=== PATIENT | female | born 1970 | race Caucasian/White ===

== ENCOUNTER → 2016-07-24 | Outpatient (CLI) | payer OTHER ==
[2015-06-08 20:22] VITALS: BP 119/79
[~2016-07-24] MED LIST: ALBU8.5H6 IH; ALPR1TAB6 PO; CHLORZOXAZONE; CHOL400C2 PO; DULO30CA2 PO; FLUT1DIS3 IH; HYDR-2762 PO; LURA20TA PO; MAG355OR14 PO; MELO-156 PO; METH-37 PO; MILN50TA PO; OMEP20CA9 PO; PREG100C PO; PREN1TAB PO; SUMA50TA4 PO; TRAZ50TA15 PO; VARE1TAB5 PO; [UNRECOGNIZED DRUG - CODE] MC
[2016-07-24 12:36] LABS: CREATININE 0.8 mg/dL (0.6-1.0); GFR 77.2
== END | disposition home or self-care (01) ==
LOC: LAB 12:01
PROVIDERS: ATTEND Psychiatry & Neurology Neurology
DX: G62.9 Polyneuropathy, unspecified (principal)
CPT/HCPCS: 36415; 82565; 84520

== ENCOUNTER → 2016-09-23 | Outpatient (CLI) | payer OTHER ==
[2015-06-08 20:22] VITALS: BP 119/79
[~2016-09-23] MED LIST changes: +GADOBUTROL 7.5 MMOL/7.5 ML VIAL IV ONE
[2016-09-23 12:54] LABS: CREATININE 0.8 mg/dL (0.6-1.0); GFR 77.2
--- NOTE | 2016-09-23 17:27 | RAD ---
PROCEDURE MRI of the lumbar spine without and with contrast 09/23/2016 HISTORY Low back pain which radiates down the right leg. TECHNIQUE Unenhanced T1 weighted, T2 weighted and inversion recovery sagittal and T2 weighted axial images of the lumbar spine were obtained. After the intravenous administration of 7 cc of Gadavist, enhanced T1 weighted sagittal and axial images of the lumbar spine were obtained. FINDINGS Comparison is made to a CT scan lumbar spine dated 09/09/2013. Minimal S-shaped curvature of the thoracolumbar spine is seen. Degenerative signal changes are seen involving the L5-S1 discs. Loss of height of this disc is noted. Degenerative signal changes are seen within the marrow surrounding this disc. The conus medullaris is normal in morphology, position, and signal characteristics. The L1-2, L2-3, and L3-4 disc spaces are within normal limits. At the L4-5 disc space there is mild generalized disc bulge which is eccentric to the right. Degenerative changes are seen involving the facet joints bilaterally. These findings do not result in significant central spinal canal or neural foraminal stenosis. At the L5-S1 disc space there is a mild generalized disc bulge. Superimposed on this disc bulge is a right paracentral focal disc herniation. This measures 4 millimeters in AP diameter. This enhances with contrast to some degree. It abuts the right S1 nerve root within the right lateral aspect of the central spinal canal. Degenerative changes are seen involving the facet joints bilaterally. These findings when combined result in mild right-sided central spinal canal stenosis. No neural foraminal stenosis is seen. IMPRESSION The changes of degenerative disc disease are seen involving the lower lumbar spine. At the L5-S1 disc space a right paracentral focal disc herniation is seen. This results in mild right-sided central spinal canal stenosis and abuts the right S1 nerve root within the right lateral aspect of the central spinal canal as outlined above. Electronically signed by: Eloy Martins MD (Sep 23, 2016 17:25:30)
== END | disposition home or self-care (01) ==
LOC: MRI 12:14
PROVIDERS: ATTEND Psychiatry & Neurology Neurology
DX: M54.16 Radiculopathy, lumbar region (principal)
CPT/HCPCS: 36415; 72158; 82565; 84520

== ENCOUNTER → 2016-10-30 | Outpatient (CLI) | payer OTHER ==
[2015-06-08 20:22] VITALS: BP 119/79
[~2016-10-30] MED LIST changes: -GADOBUTROL 7.5 MMOL/7.5 ML VIAL IV ONE
--- NOTE | 2016-10-31 01:51 | PAIN ---
DATE OF SERVICE: 10/30/2016 DIAGNOSES: Lumbar radiculopathy with lumbar degenerative disk disease and lumbar herniated disk. HISTORY OF PRESENT ILLNESS: The patient is a 46-year-old female who returns for followup, last seen on 07/26/2015. The patient did well after some epidural steroid injections with about 80-90% improvement in pain. The patient reports the pain is returning now over the past 4 months or so, increased in the low back, radiating to the right posterior lateral gluteus, posterior thighs, lateral thigh, posterior lower leg, lateral lower leg into the ankle and foot and all of the lateral toes on the right side. The patient reports a burning, radiating, constant pain, severe tingling with cramping and stabbing type, shooting and aching qualities, worse with walking and standing, better with sitting, but has been waking her up from sleep several times at night about 3 times each night to reposition. She is taking about 800 mg of ibuprofen 3 times a day, which is not helping more than about 10%. The patient reports she has been doing some stretching and strengthening exercises as well. She has had physical therapy in the past and has been doing the exercises that she had from that, these are not helping. She is still trying to walk each day, although it is becoming more and more difficult because of the pain. The patient did see her neurosurgeon who is considering diskectomy; however, would like to try conservative measures as she has done well with these in the past. The patient did have a new MRI dated ____, showing mild degenerative changes with disk protrusion in right lateral recess at L5-S1 with mild mass effect on the adjacent neural elements. PHYSICAL EXAMINATION: VITAL SIGNS: Today, the patient's blood pressure is 138/100, pulse is 80, respirations are 18, temperature is 98.1 degrees Fahrenheit. Height is 5 feet 10 inches, weight is 176 pounds. GENERAL: The patient is awake, alert, oriented, appropriate, very pleasant demeanor. HEENT: Shows normocephalic and atraumatic. Extraocular movements are intact and symmetrical. Oral cavity: Mucous membranes are moist and pink. Dentition is intact. NECK: Shows anterior throat supple without palpable lymphadenopathy noted. Swallow reflex is symmetrical. CHEST: Shows normal on inspection. Breath sounds are clear to auscultation bilaterally. HEART: Shows S1 and S2 clear. No murmurs auscultated. ABDOMEN: Soft, nontender, nondistended. No palpable organomegaly. No new rebound or guarding demonstrated. BACK: Shows spine grossly in the midline. Lumbar paraspinous musculature is symmetrical with inspection; on palpation, it shows some mild tenderness with palpation in the lower lumbar distribution bilaterally, but only diffusely in the paraspinous muscles without radiation. EXTREMITIES: The patient's lower extremities showed deep tendon reflexes at 1+ in the patellar and tendo calcaneus tendons and are symmetrical. Motor exam is approximately 4 on a scale of 5 with right-sided dorsiflexion and extension but 5/5 on the left. Straight leg raise noted to be mildly positive on the right side with about 45-degree leg raise, decreased with knee flexion, but not completely relieved. Left side is negative. Gaenslen's and Ortiz's maneuvers are negative bilaterally as well. PLAN: Options were discussed with the patient. The patient's old chart was reviewed as her current medication regimen and updated. Current review of systems updated today as well, and we will preauthorize the patient for lumbar epidural steroid injection. She has done very well with this in the past, especially in light of her significant increasing radicular pain and failure of physical therapies and stretching and exercise on her own and with history of doing very well with this, she would like to proceed. We will try Medrol Dosepak in the meantime. The patient was given instruction as well as side effects to be aware of with the medication. Also discussed her blood pressure, it is relatively high, she will follow up with her primary care physician regarding this soon as well. AB KARIMI MD DR: PALMIRA/andres JOB#: [id number] / [id number]
== END | disposition home or self-care (01) ==
LOC: PNCL 07:43
PROVIDERS: ATTEND Anesthesiology
DX: M51.16 Intervertebral disc disorders with radiculopathy, lumbar region (principal); M51.26 Other intervertebral disc displacement, lumbar region
CPT/HCPCS: 99212

== ENCOUNTER → 2016-11-13 | Outpatient (CLI) | payer OTHER ==
[2015-06-08 20:22] VITALS: BP 119/79
[~2016-11-13] MED LIST changes: +IOHEXOL 180 MG/ML 10 ML VIAL. ONE; +methylPREDNISolone ACETATE 40 MG/ML VIAL. ONE; +methylPREDNISolone ACETATE 80 MG/ML VIAL. ONE
--- NOTE | 2016-11-14 09:41 | PAIN ---
DATE OF SERVICE: 11/13/2016 PROGRESS NOTE PAIN CLINIC DIAGNOSES: Lumbar radiculopathy with lumbar degenerative disk disease and lumbar herniated disk. HISTORY OF PRESENT ILLNESS: The patient is a 46-year-old female who returns for followup status post initial evaluation and preauthorization for lumbar epidural steroid injection. The patient has obtained that now and returns today wishing to proceed with significant pain reported in the low back and right lower extremity, mostly in the posterior gluteus, posterior thigh, posterior calf, tingling, burning, aching, tight, cramping sensation and radiating pain anywhere from 0-5 on a scale of 10, worse with walking and standing for more than 10-15 minutes, better with sitting or lying down. The patient reports it is waking her from sleep about 4-5 times. Again if she lays on her right side or sits with leaning on her right hip, the pain is much worse. The patient reports no new motor or sensory deficits, no new bowel or bladder incontinence or other complaints. PHYSICAL EXAMINATION: VITAL SIGNS: The patient's blood pressure is 125/85, pulse 111, respirations are 18, temperature 98.1 degrees Fahrenheit. Height is 5 feet 10 inches, weighs 172 pounds. GENERAL: The patient is awake, alert, oriented, appropriate, very pleasant demeanor. HEENT: Head shows normocephalic, atraumatic. Extraocular movements are intact and symmetrical. Oral cavity shows mucous membranes moist and pink. Dentition is intact. NECK: Shows anterior throat supple without palpable lymphadenopathy noted. Swallow reflex is symmetrical. CHEST: Shows normal on inspection. Breath sounds clear to auscultation bilaterally. HEART: Shows S1 and S2 clear. ABDOMEN: Obese, soft, nontender, nondistended. No palpable organomegaly is noted. No rebound or guarding demonstrated. BACK: Shows spine grossly in the midline. Lumbar paraspinous muscle shows some moderate tenderness to palpation, but only diffusely in the lower lumbar distribution, slightly more on the right than the left. The patient has good rotational motion; however, the lumbar spine, both laterally as well as extension and flexion without exacerbation of pain, no tenderness over the sacrum or sacroiliac regions. EXTREMITIES: Lower extremities show deep tendon reflexes at 1+ in the patellar and tendo calcaneus tendons. Motor exam is 5/5 on the left and 4/5 with right dorsiflexion and extension. Options were discussed with the patient and the patient's old chart was reviewed as her current medication regimen updated. Current review of systems updated to date as well and we will proceed with a lumbar epidural steroid injection with fluoroscopic guidance. Risks were again discussed including, but not limited to bleeding, infection, possibility of epidural hematoma, subsequent neurologic compromise, dural puncture, headaches, spinal cord and/or nerve damage, side effects of steroid medication and poor results regarding pain control. The patient understands and wishes to proceed. The patient will return to clinic in approximately 2 weeks for followup, was counseled on return appointment, activity levels and side effects to be aware of. DIAGNOSES: Lumbar radiculopathy with lumbar degenerative disk disease and lumbar herniated disk. PROCEDURE: Lumbar epidural steroid injection in translaminar approach at the L5-S1 level using C-arm fluoroscopic guidance under sterile prep and drape using local anesthetic. MEDICATION INJECTED: 120 mg Depo-Medrol plus 10 mL of preservative-free normal saline and 2 mL of Isovue for contrast. CONDITION AT DISCHARGE: Stable. The patient tolerated procedure well, had no complications. AB KARIMI MD DR: PALMIRA/andres JOB#: [id number] / [id number]
== END | disposition home or self-care (01) ==
LOC: PNCL 08:06
PROVIDERS: ATTEND Anesthesiology
DX: M51.16 Intervertebral disc disorders with radiculopathy, lumbar region (principal)
CPT/HCPCS: 62323; J1030; J1040

== ENCOUNTER → 2016-11-20 | Outpatient (CLI) | payer OTHER ==
[2015-06-08 20:22] VITALS: BP 119/79
[~2016-11-20] MED LIST changes: -IOHEXOL 180 MG/ML 10 ML VIAL. ONE; -methylPREDNISolone ACETATE 40 MG/ML VIAL. ONE; -methylPREDNISolone ACETATE 80 MG/ML VIAL. ONE
--- NOTE | 2016-11-20 10:11 | KCIC ---
Bilateral digital screening mammograms with CAD: HISTORY Routine screening COMPARISON Comparison is made to previous examinations dated back to 10/04/2013. FINDINGS Breast density category C. The skin and nipples show no abnormalities. No abnormal lymph nodes are seen in the axilla. The breast parenchyma shows heterogeneous density. There appears to be a 12 millimeter nodular density laterally in the right breast on the exaggerated CC view. Recommend further evaluation with additional cone compression views and ultrasound. There are no other dominant masses, suspicious calcifications or architectural distortions. IMPRESSION There appears to be a small nodular density laterally in the right breast seen best on the exaggerated CC measuring approximately 1.2 centimeters size. Further evaluation with coned compression views in exaggerated CC and lateral projections and ultrasound is recommended. This study was interpreted with the benefit of Computerized Aided Detection (CAD). Mammography is not 100% sensitive in detecting breast cancer. Therefore, a self breast exam and a clinical breast exam are very important. A negative mammogram does not negate a clinically suspicious finding and should not result in a delay in biopsying a clinically suspicious abnormality. BI-RADS category 0: Incomplete. Additional imaging is recommended. This patient's information has been entered into a reminder system for the patient to be notified with the results of this examination and a target date for her next mammograms. Electronically signed by: Nadia Seals MD (November 20, 2016 10:10:05)
== END | disposition home or self-care (01) ==
LOC: KCIC MAMMO 08:05
PROVIDERS: ATTEND Family Medicine
DX: Z12.31 Encounter for screening mammogram for malignant neoplasm of breast (principal)
CPT/HCPCS: G0202; 77067

== ENCOUNTER → 2016-12-27 | Outpatient (CLI) | payer OTHER ==
[2015-06-08 20:22] VITALS: BP 119/79
[~2016-12-27] MED LIST changes: -MELO-156 PO; +MELO7.5T29 PO
--- NOTE | 2016-12-27 14:14 | KCIC ---
Diagnostic digital mammograms right breast: Reason for examination: Nodularity in the right breast on screening mammogram. Comparison is made to examination dated 11/20/2016. Coned compression views were obtained in CC and lateral projections. On these additional views, there is some patchy fibroglandular tissue but no definite nodule in the lateral right breast. Further evaluation with ultrasound will follow. IMPRESSION: Patchy fibroglandular tissue in the lateral right breast but no definite nodule. Ultrasound to follow. BI-RADS Category 0: Incomplete. Ultrasound to follow. Right breast ultrasound: Ultrasound examination was performed in the area of concern in the lateral right breast and in the axillary regions of the right breast. There is dense glandular tissue. No discrete cystic or solid nodules are seen. No abnormal lymph nodes are seen in the right axilla. IMPRESSION: No suspicious abnormalities evident with ultrasound. Recommend routine mammographic follow-up. BI-RADS Category 2: Benign. "Our facility is accredited by the [employer] Mammography Program." This patient's information has been entered into a reminder system for the patient to be notified with the results of her examination and a target date for the next mammogram. Electronically signed by: Sirena Seals MD (12/27/2016 2:11 PM)
== END | disposition home or self-care (01) ==
LOC: KCIC MAMMO 09:40
PROVIDERS: ATTEND Family Medicine
DX: R92.8 Other abnormal and inconclusive findings on diagnostic imaging of breast (principal)
CPT/HCPCS: 76641; G0206; 77065

== ENCOUNTER → 2017-02-25 | Outpatient (CLI) | payer OTHER ==
[2015-06-08 20:22] VITALS: BP 119/79
--- NOTE | 2017-02-25 16:00 | PAIN ---
DATE OF SERVICE: 02/25/2017 DIAGNOSES: Lumbar radiculopathy with low back pain, degenerative disk disease and lumbar herniated disk. HISTORY OF PRESENT ILLNESS: This is a 47-year-old female who returns for followup status post lumbar epidural steroid injection x 1, 11/13/2016. The patient reports she did very well with this, about a 75% improvement initially, but still about 50% improvement today. The patient reports still pain in the low back, right lower extremity as it was previously, but much still improved. The patient reports the pain is beginning to return, however, becoming more noticeable on a day to day basis, becoming more deep in the back and leg itself and sometimes in bilateral posterior gluteus mostly on the right side with radiation into the right leg, into the lateral posterior thigh and posterior calf; radiating constant, burning, cramping, and aching sensation, rates as an 8 on a scale of 10 at its worst and a 2 at its least, is average about a 5 to a 6 on a scale of 10 lately. The patient reports no new motor or sensory deficits, no new bowel or bladder incontinence or other complaints. The patient reports she does not awaken up from sleep at night. She has been doing well with this, reports no new motor or sensory deficits or other complaints. PHYSICAL EXAMINATION: VITAL SIGNS: Today, blood pressure is 137/81, pulse is 82, respirations 16, temperature is 98.2 degrees Fahrenheit, height is 5 feet 10 inches, weighs 124 pounds. GENERAL: The patient is awake, alert, oriented, appropriate, very pleasant demeanor. HEENT: Normocephalic, atraumatic. Extraocular movements are intact and symmetrical. Oral cavity, mucous membranes are moist and pink. Dentition is intact. NECK: Shows anterior throat supple without palpable lymphadenopathy noted. CHEST: Shows normal on inspection. Breath sounds clear to auscultation bilaterally. HEART: Shows S1 and S2 clear. No murmurs are auscultated. ABDOMEN: Soft, nontender, nondistended. No palpable organomegaly, no rebound or guarding demonstrated. BACK: The patient's back shows spine grossly in midline. Lumbar paraspinous musculature shows some mild to moderate tenderness in the lower lumbar distribution, but is symmetrical without evidence of atrophy or hypertrophy. No tenderness over the sacrum or sacroiliac regions. The patient shows good rotation and motion of the lumbar spine both laterally as well as in extension and flexion. EXTREMITIES: Lower extremities show deep tendon reflexes 1+ in the patellar and tendo calcaneus tendons are equal. Motor exam is approximately 4 on a scale of 5 with right dorsiflexion and extension and 5/5 on the left. Options were discussed with the patient and the patient's old chart was reviewed as her current medication regimen and updated. Current review of systems updated today as well. We will hold on any further injections and we will try Medrol Dosepak. The patient was given instructions as well as side effects to be aware of with the medication. The patient will return to the clinic after the Dosepak is finished by about 1 week further and if not significantly improved we did discuss potential of second lumbar epidural steroid injection, although she is doing quite well at this time, we will try the Medrol Dosepak first and see results after this. The patient understands and agrees and will follow up as scheduled. AB KARIMI MD DR: PALMIRA/andres JOB#: [id number] / [id number]
== END | disposition home or self-care (01) ==
LOC: PNCL 09:43
PROVIDERS: ATTEND Anesthesiology
DX: M54.16 Radiculopathy, lumbar region (principal); M51.36 Other intervertebral disc degeneration, lumbar region; M51.26 Other intervertebral disc displacement, lumbar region
CPT/HCPCS: 99212

== ENCOUNTER → 2017-03-17 | Outpatient (CLI) | payer OTHER ==
[2015-06-08 20:22] VITALS: BP 119/79
--- NOTE | 2017-03-18 02:01 | PAIN ---
DATE OF SERVICE: 03/17/2017 PROGRESS NOTE FOR PAIN CLINIC DIAGNOSES: Lumbar radiculopathy with lumbar degenerative disk disease and lumbar herniated disk. HISTORY OF PRESENT ILLNESS: The patient is a 47-year-old female who returns for followup status post lumbar epidural steroid injection x 1 on 11/13/2016 and did very well with 75%-80% improvement in her low back and right lower extremity pain. The patient reports her pain is returning now in the low back and right leg, gradually increasing to about 8 on a scale of 10, at its worst at 5 and on average is about 3 on a scale of 10 at its least. The patient reports worse with standing, walking and changing positions. It is aching, shooting, tingling, burning and radiating pain to the right hip, posterior gluteus, posterior thigh, posterior calf into the foot and into the lateral foot and toes as well following an L5-S1 dermatomal distribution, some in the lateral thigh also and into the calf. The patient reports no motor or sensory deficits, but it is becoming more difficult with walking and standing, fatigues much more easily on the right leg than the left. The patient reports otherwise doing fairly well. No new motor or sensory deficits. No new bowel or bladder incontinence. The patient reports it wakes her from sleep but only after about 4-5 hours as she lays on her right side. PHYSICAL EXAMINATION: VITAL SIGNS: The patient's blood pressure 129/90, pulse 99, respirations 18, temperature 98.2 degrees Fahrenheit, height is 5 feet 10 inches, weighs 173 pounds. GENERAL: The patient is awake, alert, oriented, appropriate, very pleasant demeanor. HEENT: Head shows normocephalic and atraumatic. Extraocular movements are intact and symmetrical. Oral cavity shows mucous membranes moist and pink. Dentition is intact. NECK: Shows anterior throat supple without palpable lymphadenopathy noted. Swallow reflex is symmetrical. CHEST: Shows normal with inspection. Breath sounds clear to auscultation bilaterally. HEART: Shows S1 and S2 clear. ABDOMEN: Soft, nontender and nondistended. No palpable organomegaly is noted. No rebound or guarding demonstrated. BACK: Shows spine grossly in the midline with normal-appearing thoracic kyphosis and lumbar lordotic curvature. Lumbar paraspinous muscle shows symmetrical on inspection and with palpation shows some moderate tenderness diffusely in the lower lumbar distribution but only diffusely, more on the right than the left. The patient shows good rotation and motion of the lumbar spine, both laterally as well as extension and flexion. No tenderness over the sacrum or sacroiliac regions. EXTREMITIES: Lower extremities show deep tendon reflexes 1+ in the patellar and tendo calcaneus tendons, equal. Motor exam is strong with 5/5 on the left and 4/5 on the right with dorsiflexion and extension. Peripheral pulses are 1+ in posterior tibial bilaterally. No peripheral edema is noted. ASSESSMENT AND PLAN: Options were discussed with the patient. The patient's old chart was reviewed, and her current medication regimen is updated. Current review of systems is updated today as well. We will preauthorize the patient for a lumbar epidural steroid injection. This is second in a series, and she did very well with the first injection with near 80% improvement, now returning over the past week or two in a radicular pattern on the right leg in L5-S1 dermatome. Once preauthorization is obtained, the patient will returns, and we will plan on lumbar epidural steroid injection at that time. AB KARIMI MD DR: PALMIRA/andres JOB#: [id number] / [id number]
== END | disposition home or self-care (01) ==
LOC: PNCL 08:10
PROVIDERS: ATTEND Anesthesiology
DX: M51.16 Intervertebral disc disorders with radiculopathy, lumbar region (principal); M79.604 Pain in right leg
CPT/HCPCS: 99212

== ENCOUNTER → 2017-04-01 | Outpatient (CLI) | payer OTHER ==
[2015-06-08 20:22] VITALS: BP 119/79
[~2017-04-01] MED LIST changes: +IOHEXOL 180 MG/ML 10 ML VIAL. ONE; +methylPREDNISolone ACETATE 40 MG/ML VIAL. ONE; +methylPREDNISolone ACETATE 80 MG/ML VIAL. ONE
--- NOTE | 2017-04-01 18:48 | PAIN ---
DATE OF SERVICE: 04/01/2017 DIAGNOSES: Lumbar radiculopathy with lumbar degenerative disk disease, low back pain and lumbar herniated disk. HISTORY OF PRESENT ILLNESS: The patient is a 47-year-old female who returns for followup status post lumbar epidural steroid injection in November of this year with good results about 75% improvement to 80% improvement. The pain has been returning and is down the low back and right lower extremity as it was previously. The patient reports it is increasing with walking, standing, change in positions of 10 on a scale of 10 at its worst, at 8 on average and a 5 on a scale of 10 at its least, is a 5 today. The patient reports an aching tight cramping, burning, radiating, constant, no new motor or sensory deficits. The patient reports no new bowel or bladder incontinence or other complaints. PHYSICAL EXAMINATION: VITAL SIGNS: The patient's blood pressure 144/94, pulse 90, respirations 18, temperature is 98.1 degrees Fahrenheit, height is 5 feet 10 inches, weight is 173 pounds. GENERAL: The patient is awake, alert, oriented, appropriate, very pleasant demeanor. HEENT: Head shows normocephalic, atraumatic. Extraocular movements are intact and symmetrical. Oral cavity: Mucous membranes moist and pink. Dentition is intact. NECK: Shows anterior throat supple without palpable lymphadenopathy noted. Swallow reflex is symmetrical. CHEST: Shows normal on inspection. Breath sounds clear to auscultation bilaterally. HEART: Shows S1 and S2 clear. ABDOMEN: Soft, nontender, nondistended. No palpable organomegaly is noted. BACK: Shows spine grossly midline. Lumbar paraspinous musculature shows tattooing noted and also, lumbar paraspinous muscles are symmetrical when on inspection with palpation shows some mild tenderness bilaterally, but without significant radiation, more on the right than the left in the lower lumbar distribution to paraspinous muscles, again only diffusely. EXTREMITIES: Lower extremities show deep tendon reflexes 1+ in the patellar and tendo calcaneus tendons. Motor exam is strong with approximately 4 on a scale of 5 right dorsiflexion and extension and 5/5 on the left. Options were discussed with the patient. The patient's old chart was reviewed as her current medication regimen updated. Current review of systems updated today as well. We will proceed with a second in this series of lumbar epidural steroid injection with fluoroscopic guidance. Risks were again discussed including, but not limited to bleeding, infection, possibility of epidural hematoma, subsequent neurologic compromise, dural puncture, headaches, spinal cord and/or nerve damage, side effects of steroid medication and poor results regarding pain control. The patient understands and wishes to proceed. The patient will return to clinic in approximately 2 weeks for followup. She was counseled to return appointment, activity level and side effects to be aware of. DIAGNOSIS: Lumbar radiculopathy with lumbar degenerative disk disease and lumbar herniated disk. PROCEDURE: Lumbar epidural steroid injection, translaminar approach L5-S1 level using C-arm fluoroscopic guidance under sterile prep and drape using local anesthetic. MEDICATION INJECTED: A total of 120 mg Depo-Medrol plus 10 mL of preservative-free normal saline and 2 mL Isovue for contrast. CONDITION ON DISCHARGE: Stable. The patient tolerated procedure well, had no complications. AB KARIMI MD DR: PALMIRA/andres JOB#: [id number] / [id number]
== END | disposition home or self-care (01) ==
LOC: PNCL 09:01
PROVIDERS: ATTEND Anesthesiology
DX: M51.16 Intervertebral disc disorders with radiculopathy, lumbar region (principal)
CPT/HCPCS: 62323; J1030; J1040

== ENCOUNTER → 2017-06-19 | Day surgery (SDC) | payer OTHER ==
[~2017-06-19] MED LIST changes: -ALBU8.5H6 IH; -ALPR1TAB6 PO; -CHLORZOXAZONE; -CHOL400C2 PO; -DULO30CA2 PO; -FLUT1DIS3 IH; -HYDR-2762 PO; -IOHEXOL 180 MG/ML 10 ML VIAL. ONE; +LIDOCAINE 1% PF 2 ML VIAL. ID; +LIDOCAINE 2% PF Vial for OR 5 ML VIAL.; -LURA20TA PO; -MAG355OR14 PO; -MELO7.5T29 PO; -METH-37 PO; +MIDAZOLAM HCL/PF 2 MG/2 ML VIAL. IV; -MILN50TA PO; -OMEP20CA9 PO; -PREG100C PO; -PREN1TAB PO; +PROPOFOL 20 ML IV; -SUMA50TA4 PO; -TRAZ50TA15 PO; -VARE1TAB5 PO; -[UNRECOGNIZED DRUG - CODE] MC; +fentaNYL PF VIAL 100 MCG/2 ML VIAL IV; -methylPREDNISolone ACETATE 40 MG/ML VIAL. ONE; -methylPREDNISolone ACETATE 80 MG/ML VIAL. ONE
[2017-06-19] MEDS: IV RINGERS,LACTATED 1000ML 1,000 ML IV (12:43)
== END | disposition home or self-care (01) ==
LOC: SURG 11:58
DX: K21.0 Gastro-esophageal reflux disease with esophagitis (principal); K29.50 Unspecified chronic gastritis without bleeding; T18.2XXA Foreign body in stomach, initial encounter; J45.909 Unspecified asthma, uncomplicated; F41.9 Anxiety disorder, unspecified; F32.9 Major depressive disorder, single episode, unspecified; F17.200 Nicotine dependence, unspecified, uncomplicated; Z86.69 Personal history of other diseases of the nervous system and sense organs; X58.XXXA Exposure to other specified factors, initial encounter; Y93.89 Activity, other specified; Y92.89 Other specified places as the place of occurrence of the external cause; Y99.8 Other external cause status
CPT/HCPCS: 43239; 88305; J2704

== ENCOUNTER → 2017-09-16 | Outpatient (CLI) | payer OTHER | END | disposition home or self-care (01) | LOC: PNCL 10:34 | DX: M48.061 Spinal stenosis, lumbar region without neurogenic claudication (principal); M51.16 Intervertebral disc disorders with radiculopathy, lumbar region; G25.81 Restless legs syndrome | CPT/HCPCS: 99212 ==

== ENCOUNTER → 2017-09-23 | Outpatient (CLI) | payer OTHER | LOC: KCIC MRI 15:25 | DX: M51.16 Intervertebral disc disorders with radiculopathy, lumbar region (principal); G89.29 Other chronic pain | CPT/HCPCS: 72148 ==

== ENCOUNTER → 2017-09-30 | Outpatient (CLI) | payer OTHER | END | disposition home or self-care (01) | LOC: PNCL 09:50 | DX: M51.16 Intervertebral disc disorders with radiculopathy, lumbar region (principal) | CPT/HCPCS: 99212 ==

== ENCOUNTER → 2017-10-21 | Outpatient (CLI) | payer OTHER ==
[~2017-10-21] MED LIST changes: +IOHEXOL 180 MG/ML 10 ML VIAL.; -LIDOCAINE 1% PF 2 ML VIAL. ID; -LIDOCAINE 2% PF Vial for OR 5 ML VIAL.; -MIDAZOLAM HCL/PF 2 MG/2 ML VIAL. IV; -PROPOFOL 20 ML IV; -fentaNYL PF VIAL 100 MCG/2 ML VIAL IV; +methylPREDNISolone ACETATE 40 MG/ML VIAL.; +methylPREDNISolone ACETATE 80 MG/ML VIAL.
== END ==
LOC: PNCL 08:55
DX: M51.16 Intervertebral disc disorders with radiculopathy, lumbar region (principal)
CPT/HCPCS: 62323; J1030; J1040; Q9965

== ENCOUNTER → 2018-01-29 | Outpatient (CLI) | payer OTHER | END | disposition home or self-care (01) | LOC: PNCL 09:11 | DX: M51.16 Intervertebral disc disorders with radiculopathy, lumbar region (principal) | CPT/HCPCS: 99212 ==

== ENCOUNTER → 2018-02-09 | Outpatient (CLI) | payer OTHER | END | disposition home or self-care (01) | LOC: KCIC MRI 12:06 | DX: M50.123 Cervical disc disorder at C6-C7 level with radiculopathy (principal); M48.02 Spinal stenosis, cervical region | CPT/HCPCS: 72141 ==

== ENCOUNTER → 2018-02-19 | Outpatient (CLI) | payer OTHER ==
[2017-06-19 13:25] VITALS: BP 139/64
[~2018-02-19] MED LIST changes: +ALBU8.5H6 IH; +ALPR1TAB6 PO; +BREX0.25 PO; +CHLORZOXAZONE; +CHOL400C2 PO; +DULO30CA2 PO; +FLUT1DIS3 IH; +HYDR-2762 PO; -IOHEXOL 180 MG/ML 10 ML VIAL.; +IOHEXOL 180 MG/ML 10 ML VIAL. ONE; +LIDOCAINE 2% PF 2ML VIAL. ONE; +LURA20TA PO; +MAG355OR14 PO; +MELO7.5T29 PO; +METH-37 PO; +METO25TA4 PO; +MILN50TA PO; +OMEP20CA9 PO; +PREG100C PO; +PREN1TAB PO; +SUMA50TA4 PO; +TRAZ-85 PO; +VARE1TAB5 PO; +[UNRECOGNIZED DRUG - CODE] MC; -methylPREDNISolone ACETATE 40 MG/ML VIAL.; +methylPREDNISolone ACETATE 40 MG/ML VIAL. ONE; -methylPREDNISolone ACETATE 80 MG/ML VIAL.; +methylPREDNISolone ACETATE 80 MG/ML VIAL. ONE
--- NOTE | 2018-02-19 15:14 | PAIN ---
DATE OF SERVICE: 02/19/2018 DIAGNOSES: 1. Lumbar radiculopathy with lumbar degenerative disk disease, lumbar herniated disk and low back pain. 2. Cervical radiculopathy with cervical degenerative disk disease. HISTORY OF PRESENT ILLNESS: The patient is a 48-year-old female who returns for followup status post lumbar epidural steroid injection x 1 with good results about 90% improvement. The patient reports that the pain is returning with a significant radiation in the right lower extremity as previously, the patient was waiting for preauthorization with her insurance provider. She has obtained this and would like to proceed today. The patient reports still significant pain in the low back, bilateral and into the right lower extremity, mostly in the posterior gluteus, posterior thigh, posterior calf. Rates a 9 on a scale of 10 at its worst, 6 on average, 5 at its least and is a 6 today. The patient reports an aching, tight, shooting, sharp, cramping, stabbing, burning and becoming more constant, more severe with time, worse with walking, standing, better with sitting or lying down, but does awaken him from sleep about every 3-4 hours. The patient reports originally, she is increasing her distance walking, doing better with household activities and recreational activities, but now, the pain is returning. The patient reports no new motor or sensory deficits, no new bowel or bladder incontinence or other complaints. PHYSICAL EXAMINATION: VITAL SIGNS: The patient's blood pressure 141/93, pulse 103, respirations 16, temperature is 98.3 degrees Fahrenheit, weight is 171 pounds. GENERAL: The patient is awake, alert, oriented, appropriate, very pleasant demeanor. HEENT: Shows normocephalic, atraumatic. Extraocular movements are intact, symmetrical. Oral cavity: Mucous membranes moist and pink. Dentition is intact. NECK: Shows anterior throat supple without palpable lymphadenopathy noted. Swallow reflex is symmetrical. CHEST: Shows normal with inspection. Breath sounds are clear to auscultation bilaterally. HEART: Shows S1, S2 clear. No murmurs auscultated. ABDOMEN: Soft, nontender, nondistended. No palpable organomegaly is noted. No rebound or guarding demonstrated. BACK: Shows spine grossly in the midline, normal-appearing thoracic kyphosis and lumbar lordotic curvature. Lumbar paraspinous musculature shows symmetrical on inspection, on palpation shows some moderate tenderness but only diffusely with palpation, but without radiation or trigger points, no difficulty with rotational motion both laterally as well as extension and flexion without difficulty. EXTREMITIES: The patient's lower extremities show deep tendon reflexes at 1+ in the patellar and tendo calcaneus tendon. Motor exam is approximately 4 on a scale of 5 on the right and 5/5 on the left with dorsiflexion, extension, but intact. Peripheral pulses are 1+ posterior tibia. No peripheral edema is noted bilaterally. Options were discussed with the patient. The patient's old chart was reviewed as her current medication regimen and updated. Current review of systems is updated today as well. We will proceed with a second in the series of lumbar epidural steroid injection today with fluoroscopic guidance. Risks were again discussed including, but not limited to bleeding, infection, possibility of epidural hematoma and subsequent neurological compromise, dural puncture, headaches, spinal cord and/or nerve damage, side effects of steroid medication and poor results regarding pain control. The patient understands and wished to proceed. The patient to return to clinic in approximately 2 weeks for followup. She was counseled on return appointment, activity level and side effects to be aware of. DIAGNOSES: Lumbar radiculopathy with lumbar degenerative disk disease and lumbar herniated disk. PROCEDURE: Lumbar epidural steroid injection, translaminar approach L5-S1 level using C-arm fluoroscopic guidance under sterile prep and drape using local anesthetic. MEDICATION INJECTED: A total of 120 mg Depo-Medrol plus 10 mL of preservative-free normal saline and 2 mL of Isovue for contrast. CONDITION AT DISCHARGE: Stable. The patient tolerated procedure well, had no complications. AB KARIMI MD DR: PALMIRA/andres JOB#: [id number] / [id number]
== END | disposition home or self-care (01) ==
LOC: PNCL 08:59
PROVIDERS: ATTEND Anesthesiology
DX: M51.16 Intervertebral disc disorders with radiculopathy, lumbar region (principal); M48.02 Spinal stenosis, cervical region; K58.9 Irritable bowel syndrome, unspecified; K21.9 Gastro-esophageal reflux disease without esophagitis; F31.9 Bipolar disorder, unspecified; F41.9 Anxiety disorder, unspecified; Z72.0 Tobacco use; F20.9 Schizophrenia, unspecified; Z98.890 Other specified postprocedural states; Z79.899 Other long term (current) drug therapy
CPT/HCPCS: 62323; J1030; J1040; J2001; Q9965

== ENCOUNTER → 2018-02-23 | Outpatient (CLI) | payer OTHER ==
[2017-06-19 13:25] VITALS: BP 139/64
[~2018-02-23] MED LIST changes: -IOHEXOL 180 MG/ML 10 ML VIAL. ONE; -LIDOCAINE 2% PF 2ML VIAL. ONE; -methylPREDNISolone ACETATE 40 MG/ML VIAL. ONE; -methylPREDNISolone ACETATE 80 MG/ML VIAL. ONE
--- NOTE | 2018-02-23 13:00 | KCIC ---
Bilateral digital screening mammograms: Reason for examination: Routine screening. Comparison is made to previous studies dated 11/20/2016 and 10/11/2015. Interpretation was made with the benefit of CAD. The skin and nipples show no abnormalities. No abnormal axillary lymph nodes are seen. The breast parenchyma shows scattered fibroglandular density. (Breast density: Category B.) There are no dominant masses, suspicious calcifications or architectural distortions. Impression: No evidence of malignancy. Recommend routine screening. BI-RADS Category 1: Negative. "Our facility is accredited by the [employer] Mammography [employer]." This patient's information has been entered into a reminder system for the patient to be notified with the results of her examination and a target date for the next mammogram. Electronically signed by: Sirena Seals MD (02/23/2018 12:56 PM) [id number]
== END | disposition home or self-care (01) ==
LOC: KCIC MAMMO 10:14
PROVIDERS: ATTEND Family Medicine
DX: Z12.31 Encounter for screening mammogram for malignant neoplasm of breast (principal); K21.9 Gastro-esophageal reflux disease without esophagitis; Z90.710 Acquired absence of both cervix and uterus; Z86.69 Personal history of other diseases of the nervous system and sense organs; Z79.899 Other long term (current) drug therapy
CPT/HCPCS: 77067

== ENCOUNTER → 2018-03-10 | Outpatient (CLI) | payer OTHER ==
[2017-06-19 13:25] VITALS: BP 139/64
--- NOTE | 2018-03-10 20:12 | PAIN ---
DATE OF SERVICE: 03/10/2018 PROGRESS NOTE FOR PAIN CLINIC DIAGNOSES: 1. Lumbar radiculopathy with lumbar degenerative disk disease and lumbar herniated disk. 2. Cervical radiculopathy with cervical degenerative disk disease. HISTORY OF PRESENT ILLNESS: The patient is a 48-year-old female who returns for followup status post lumbar epidural steroid injection x 1. The patient reports about 75% improvement, but it is still helping in the low back and right greater than left lower extremity. The patient reports no new motor or sensory deficits, no new bowel or bladder incontinence. She has had increased her activity significantly with a lot of walking, standing and changing positions here recently in the last week or two. The patient reports that it has caused some increased spasticity in her mid and upper back. Otherwise, doing much better, still sleeping better at night, but awakens her occasionally. The patient reports she has pain in the low back, right greater than left lower extremity into the lower calf as well, mostly in the anterior medial aspect of the thigh, medial lower leg and posterior calf and back. The patient reports it is aching, dull to cramping, burning, stabbing at times, becoming constant with activity, but better with sitting or resting. The patient reports it is a 10 on a scale of 10 at its worst, 5 on average and 3 at its least and is a 5 today. The patient reports no new motor or sensory deficits, no new bowel or bladder incontinence or other complaints. PHYSICAL EXAMINATION: VITAL SIGNS: The patient's blood pressure 131/99, pulse is 98, respirations are 18, temperature 98.0 degrees Fahrenheit, height is 5 feet 10 inches, weight is 169 pounds. GENERAL: The patient is awake, alert, oriented, appropriate, very pleasant demeanor. HEENT: Head shows normocephalic, atraumatic. Extraocular movements are intact and symmetrical. Oral cavity: Mucous membranes are moist and pink. Dentition is intact. NECK: Shows anterior throat supple without palpable lymphadenopathy noted. Swallow reflex is symmetrical. CHEST: Shows normal on inspection. Breath sounds are clear to auscultation bilaterally. HEART: Shows S1, S2 clear. No murmurs auscultated. ABDOMEN: Soft, nontender, nondistended. No palpable organomegaly is noted. No rebound or guarding demonstrated. BACK: Shows spine grossly in the midline. Normal-appearing cervical lordotic curvature, thoracic kyphotic curvature, and lumbar lordotic curvature. Lumbar paraspinous muscle shows symmetrical on inspection, on palpation shows some moderate tenderness, only diffusely in the low lumbar distribution without radiation, without asymmetry. The patient shows no difficulty with rotational motion of the lumbar spine. No tenderness over the sacrum or sacroiliac regions. EXTREMITIES: Lower extremities show deep tendon reflexes 1+ in the patellar and tendo calcaneus tendons. Motor exam is approximately 4 on a scale of 5 on the right dorsiflexion and extension and 5/5 on the left. Peripheral pulses are 1+ posterior tibia. No peripheral edema is noted. Options were discussed with the patient. The patient's old chart was reviewed as her current medication regimen updated. Current review of systems updated today as well. We will wait on any further injections as the patient is doing quite well at this time. We discussed a possible repeat lumbar epidural steroid injection in the future. She would like to wait on this as well. She is doing quite a bit better at this time. The patient will continue increasing exercise, stretching and strengthening. We discussed some stretching exercises for her back as well and we will try Zanaflex in place of methocarbamol. The patient was given instructions as well as side effects to be aware of with the medication and will follow up in approximately 2 weeks as scheduled. AB KARIMI MD DR: PALMIRA/andres JOB#: [id number] / [id number]
== END | disposition home or self-care (01) ==
LOC: PNCL 09:01
PROVIDERS: ATTEND Anesthesiology
DX: M51.16 Intervertebral disc disorders with radiculopathy, lumbar region (principal); M50.10 Cervical disc disorder with radiculopathy, unspecified cervical region; J45.909 Unspecified asthma, uncomplicated; K21.9 Gastro-esophageal reflux disease without esophagitis; Z90.710 Acquired absence of both cervix and uterus; Z86.69 Personal history of other diseases of the nervous system and sense organs; Z87.891 Personal history of nicotine dependence
CPT/HCPCS: 99212

== ENCOUNTER → 2018-04-21 | Outpatient (CLI) | payer OTHER ==
[2017-06-19 13:25] VITALS: BP 139/64
[~2018-04-21] MED LIST changes: +CRESTOR20 MG PO; +IOHEXOL 180 MG/ML 10 ML VIAL. ONE; +LIDOCAINE 1% PF 2 ML VIAL. ONE; +methylPREDNISolone ACETATE 40 MG/ML VIAL. ONE; +methylPREDNISolone ACETATE 80 MG/ML VIAL. ONE
--- NOTE | 2018-04-21 23:30 | PAIN ---
DATE OF SERVICE: 04/21/2018 DIAGNOSES: Lumbar radiculopathy with lumbar degenerative disk disease, lumbar herniated disk. HISTORY OF PRESENT ILLNESS: The patient is a 48-year-old female, returns for followup status post evaluation and preauthorization for lumbar epidural steroid injection today. The patient had two in the past with about a 75% improvement or better. The patient reports still some pain now returning in the low back and right lower extremity, mostly in the posterior gluteus, posterior thigh, posterior calf into the foot and heel, especially on the right side. The patient reports it is tingling, burning, stabbing, becoming more constant, more severe, sharp and aching, tight, shooting in the foot, is more tight and sharp. The patient reports pain is a 9 on a scale of 10 at its worst, 7 on average, a 6 at its least and is a 7 today. The patient reports no new motor or sensory deficits. The patient reports it is awakening her from sleep over the past week or so about every 4 hours, especially if she lays on her right side. The patient reports no other complaints. PHYSICAL EXAMINATION: VITAL SIGNS: Today, the patient's blood pressure is 135/95, pulse 84, respirations are 16, temperature is 98.8 degrees Fahrenheit, weight is 171 pounds. GENERAL: The patient is awake, alert, oriented, appropriate, very pleasant demeanor. HEENT: Shows normocephalic, atraumatic. Extraocular movements are intact and symmetrical. Oral cavity: Mucous membranes moist and pink. Dentition is intact. NECK: Shows anterior throat supple without palpable lymphadenopathy noted. Swallow reflex is symmetrical. CHEST: Shows normal on inspection. Breath sounds are clear to auscultation bilaterally. HEART: Shows S1, S2 clear. No murmurs auscultated. ABDOMEN: Soft, nontender, nondistended. No palpable organomegaly is noted. No rebound or guarding demonstrated. BACK: Shows spine grossly in the midline. EXTREMITIES: The patient's lower extremities show deep tendon reflexes at 1+ in the patellar and tendo calcaneus tendons. Motor exam is approximately 5 on a scale 5 on the left and 4/5 on the right with dorsiflexion, extension, quadriceps and hamstring flexion. The patient's peripheral pulses are 1+ bilaterally in the posterior tibia. No peripheral edema is noted. Options were discussed with the patient. The patient's old chart was reviewed as is her current medication regimen updated. Current review of systems is updated today as well. We will proceed with a third in a series of lumbar epidural steroid injection today with fluoroscopic guidance. Risks were again discussed including, but not limited to bleeding, infection, possibility of epidural hematoma, subsequent neurological compromise, dural puncture, headaches, spinal cord and/or nerve damage, side effects of steroid medication and poor results regarding pain control. The patient understands and wished to proceed. The patient will return to the clinic in approximately 2 weeks for followup, was counseled on return appointment, activity level and side effects to be aware of. DIAGNOSES: Lumbar radiculopathy with lumbar degenerative disk disease, lumbar herniated disk. PROCEDURE: Lumbar epidural steroid injection, translaminar approach at L5-S1 level using C-arm fluoroscopic guidance under sterile prep and drape using local anesthetic. MEDICATION INJECTED: A total of 120 mg Depo-Medrol plus 10 mL of preservative-free normal saline and 2 mL of Isovue for contrast. CONDITION AT DISCHARGE: Stable. The patient tolerated the procedure well, had no complications. AB KARIMI MD DR: PALMIRA/andres JOB#: [id number] / [id number]
== END | disposition home or self-care (01) ==
LOC: PNCL 10:58
PROVIDERS: ATTEND Anesthesiology
DX: M51.16 Intervertebral disc disorders with radiculopathy, lumbar region (principal)
CPT/HCPCS: 62323; J1030; J1040; Q9965

== ENCOUNTER → 2018-09-28 | Outpatient (CLI) | payer OTHER ==
[2017-06-19 13:25] VITALS: BP 139/64
[~2018-09-28] MED LIST changes: +ESZO3TAB28 PO; -HYDR-2762 PO; +HYDR-2765 PO; -IOHEXOL 180 MG/ML 10 ML VIAL. ONE; -LIDOCAINE 1% PF 2 ML VIAL. ONE; +OMEP20CA10 PO; -OMEP20CA9 PO; +TOPI25TA52 PO; +TRAZ-118 PO; -TRAZ-85 PO; -methylPREDNISolone ACETATE 40 MG/ML VIAL. ONE; -methylPREDNISolone ACETATE 80 MG/ML VIAL. ONE
--- NOTE | 2018-09-28 14:09 | KCIC ---
Exam : Lumbar spine 09/28/2018. Comparison: Lumbar spine MRI September 23, 2017 Indication: Pain. Findings: 4 views of the lumbar spine demonstrate no acute fracture or subluxation. No significant shift in alignment upon flexion or extension. There are five lumbar type vertebral bodies. The alignment is within normal limits. The vertebral bodies demonstrate normal height. The intervertebral disc spaces are well maintained. There is moderate facet arthropathy. Atherosclerotic changes are identified involving the abdominal aorta. Impression: No significant shift in alignment upon flexion or extension. Electronically signed by: Helene Mccollum MD (09/28/2018 2:05 PM) [facility]
--- NOTE | 2018-09-28 14:57 | KCIC ---
EXAMINATION: Magnetic resonance imaging (MRI) of the lumbar spine without contrast 09/28/2018 2:00 PM HISTORY: Lumbar spondylosis. Chronic low back pain extending into the right hip and down the right leg to the foot. TECHNIQUE: Multiplanar multi-weighted MRI of the lumbar spine was performed without intravenous contrast using the standard lumbar spine protocol. Contrast information: None administered. COMPARISON: MRI lumbar spine September 23, 2017 FINDINGS: The alignment of the lumbar spine is normal. Vertebral bodies demonstrate normal signal intensity on all sequences. There are no compression fractures. The conus medullaris terminates at the level of L1. The distal spinal cord signal intensity is normal. There is disc desiccation at L4-L5 and L5-S1 with annular fissure at L5-S1. Limited views of the abdomen and pelvis show no soft tissue abnormality. The aorta is normal. There is a cyst in the right adnexa measuring 1.5 x 1.3 cm with a fluid hematocrit level suggestive of a hemorrhagic cyst. L3-L4: The disc is normal in configuration. There is mild facet arthropathy. There is no neuroforaminal stenosis. There is no spinal canal stenosis. L4-L5: There is a mild disc bulge asymmetric to the right with right foraminal disc protrusion appearing stable. There is mild facet arthropathy. There is mild to moderate right neuroforaminal stenosis. No spinal canal stenosis. L5-S1: There is a right central disc protrusion. There is moderate facet arthropathy, right greater than left. There is mild right neural foraminal stenosis. Mild right lateral recess stenosis. Findings are unchanged since prior examination. IMPRESSION: Mild degenerative changes of the lumbar spine as described in detail above. Findings are not significantly changed since the prior examination. There is a 1.5 cm hemorrhagic cyst in the right adnexa. Electronically signed by: Helene Mccollum MD (09/28/2018 2:54 PM) [facility]
== END | disposition home or self-care (01) ==
LOC: KCIC 13:26
PROVIDERS: ATTEND Nurse Practitioner Adult Health
DX: M47.816 Spondylosis without myelopathy or radiculopathy, lumbar region (principal); M48.07 Spinal stenosis, lumbosacral region; M51.27 Other intervertebral disc displacement, lumbosacral region; M12.88 Other specific arthropathies, not elsewhere classified, other specified site; N83.8 Other noninflammatory disorders of ovary, fallopian tube and broad ligament; I70.0 Atherosclerosis of aorta
CPT/HCPCS: 72110; 72148

== ENCOUNTER → 2018-11-02 | Outpatient (CLI) | payer OTHER ==
[2017-06-19 13:25] VITALS: BP 139/64
--- NOTE | 2018-11-03 03:19 | PAIN ---
DATE OF SERVICE: 11/02/2018 DIAGNOSES: 1. Lumbar radiculopathy with lumbar degenerative disk disease, lumbar herniated disk. 2. Cervical radiculopathy with cervical degenerative disk disease. HISTORY OF PRESENT ILLNESS: The patient is a 48-year-old female who returns for followup status post lumbar epidural steroid injections, most recently 04/21/2018. The patient did very well with this with about a 75% improvement in the low back and right lower extremity. The patient reports pain is returning now over the past month or so. The patient did have an evaluation with her neurosurgery who is recommending a L4 right transforaminal injection for continued radiculopathy in the right leg. The patient has been doing physical therapy exercises since April and continues to do these at home as well on her own, only with minimal decrease in pain. The patient reports pain is an 8-9 on a scale of 10 at its worst, 6-7 on average, 5-6 at its least and is a 7 today, shows an aching, sharp, shooting, tingling, stabbing, radiating in the posterior gluteus, posterior thigh, lateral thigh, anterior thigh, medial thigh, medial lower leg, posterior lower leg into the foot involving all the toes on the right side. The patient also reports pain in the base of the neck as well as the upper extremities and numbness and tingling in both of the hands. The patient reports both hands, more of the right than the left, but significant tingling and numbness especially at night. The patient's chief complaint, however, is low back and right lower extremity pain in radicular fashion as noted. The patient again did very well after last injection and with recent neurosurgical evaluation and requesting a transforaminal injection on the right L4-L5. The patient reports no new motor or sensory deficits, no significant loss of motor function, but significant fatigability in the right leg with walking and standing. It has been awakening her from sleep about every 4-5 hours between that and her neck and arm on the right. The patient reports no new motor or sensory deficits. No new bowel or bladder incontinence or other complaints. PHYSICAL EXAMINATION: VITAL SIGNS: The patient's blood pressure 111/73, pulse 93, respirations 18, temperature 98.2 degrees Fahrenheit, height is 5 feet 10 inches, weighs 170 pounds. GENERAL: The patient is awake, alert, oriented, appropriate, very pleasant demeanor. HEENT: Shows normocephalic, atraumatic. Extraocular movements are intact and symmetrical. Oral cavity: Mucous membranes moist and pink. Dentition is intact. NECK: Shows anterior throat supple without palpable lymphadenopathy noted. Swallow reflex is symmetrical. CHEST: Shows normal on inspection. Breath sounds are clear to auscultation bilaterally. HEART: Shows S1, S2 clear. No murmurs auscultated. ABDOMEN: Soft, nontender, nondistended. No palpable organomegaly is noted. No rebound or guarding demonstrated. BACK: Shows spine grossly in the midline, normal-appearing cervical lordotic curvature, thoracic kyphotic curvature and lumbar lordotic curvature. The patient's cervical paraspinous muscle shows symmetrical on inspection, with some moderate tenderness, more on the right than the left in the superior medial trapezius as well as the inferior cervical paraspinous muscles, but without trigger points. Good rotational motion both laterally as well as extension and flexion without significant increase in pain. The patient's low back shows symmetrical paraspinous musculature on inspection. With palpation shows some moderate tenderness diffusely again more on the right than the left, but in the lower lumbar distribution only without significant trigger points or radiation. No tenderness over the sacrum or sacroiliac regions. EXTREMITIES: The patient's lower extremities show deep tendon reflexes at 1+ in the patellar and tendo calcaneus tendons. Motor exam is 5/5 on the left and 4/5 on the right with dorsiflexion, extension, quadriceps and hamstring flexion. Peripheral pulses are 1+ posterior tibia. No peripheral edema is noted. The patient does have a positive straight leg raise on the right at about 35 degrees, decreased with knee flexion. Left side is negative. Gaenslen's and Ortiz's maneuvers are negative bilaterally. Options were discussed with the patient. The patient's old chart was reviewed as was her current medication regimen updated. Current review of systems is updated today as well. We will preauthorize the patient for a right L4-L5 transforaminal injection as per request from Neurosurgery as the patient has done very well with lumbar epidural interventions in the past, most recently with a 75% improvement in 04/2018, lasting for several months, now returning. The patient still with radicular pain in the right L4-L5 dermatomal distribution and we will preauthorize the patient for right L4-L5 transforaminal injection. The patient will return to the clinic once authorization is obtained. We will continue with home strengthening and stretching exercises and physical therapy exercises she is doing on her own. Also, walking daily as tolerated and stretching and doing yoga exercises as well and we will continue these also. AB KARIMI MD DR: PALMIRA/nts JOB#: [id number] / [id number]
== END | disposition home or self-care (01) ==
LOC: PNCL 11:04
PROVIDERS: ATTEND Anesthesiology
DX: M51.16 Intervertebral disc disorders with radiculopathy, lumbar region (principal); M50.10 Cervical disc disorder with radiculopathy, unspecified cervical region
CPT/HCPCS: G0463

== ENCOUNTER → 2018-11-16 | Outpatient (CLI) | payer OTHER ==
[2017-06-19 13:25] VITALS: BP 139/64
[~2018-11-16] MED LIST changes: +BUPIVACAINE MPF 0.25% 10 ML VIAL. ONE; +IOHEXOL 180 MG/ML 10 ML VIAL. ONE; +methylPREDNISolone ACETATE 80 MG/ML VIAL. ONE
--- NOTE | 2018-11-17 04:37 | PAIN ---
DATE OF SERVICE: 11/16/2018 PROGRESS NOTE FOR PAIN CLINIC: DIAGNOSES: Lumbar radiculopathy with lumbar degenerative disk disease with lumbar herniated disk. HISTORY OF PRESENT ILLNESS: The patient is a 48-year-old female who returns for followup status post evaluation and preauthorization for right transforaminal injection. The patient has obtained this now and would like to proceed, still pain in the low back and right lower extremity in L4-L5 dermatomal distribution. The patient has secondary complaint of cervical radiculopathy and pain in the right upper extremity following into the neck and the shoulder, into the right arm, right posterior aspect of the triceps, forearm and into the hand with numbness and tingling in the thumb and first and second fingers. It is worse at night, worse with walking or using her hand in repetitive motions, raising her right arm up over her head, reaching forward or lifting items. It is worse with driving a car and wakes up with it in pain several times a night of the right arm. The patient reports the pain is an 8 on a scale of 10 at its worst, 6-7 on average and is a 4 at its least this week and is a 4 today. The patient reports the low back and legs aching and tightness with tingling, burning, cramping, pain is becoming more constant, also becoming more constant in the arm and right upper extremity. The patient did have an MRI scan of the cervical spine from 02/2018 showing a right central disk extrusion at C6-C7 extending cranially with involvement into the right foraminal zone resulting in [id number] right neural foraminal stenosis. The patient reports no new motor or sensory deficits, no new bowel or bladder incontinence or other complaints, wakes her from sleep at least 2 or 3 times a night between the arm and the leg. PHYSICAL EXAMINATION: VITAL SIGNS: Today, the patient's blood pressure 140/96, pulse is 98, respirations are 18, temperature is 98.5 degrees Fahrenheit, height is 5 feet 10 inches, weighs 172 pounds. GENERAL: The patient is awake, alert, oriented, appropriate, very pleasant demeanor. HEENT: Shows normocephalic, atraumatic. Extraocular movements are intact, symmetrical. Oral cavity: Mucous membranes moist and pink. Dentition is intact. NECK: Shows anterior throat supple without palpable lymphadenopathy noted. Swallow reflex symmetrical. CHEST: Shows normal with inspection. Breath sounds are clear bilaterally. HEART: Shows S1, S2 clear. No murmurs auscultated. ABDOMEN: Soft, nontender, nondistended. No palpable organomegaly is noted. No rebound or guarding demonstrated. BACK: Shows spine grossly in the midline. Cervical paraspinous muscle shows symmetrical on inspection, on palpation shows some moderate tenderness in the inferior aspect of the cervical paraspinous musculature bilaterally, slightly worse on the right than the left. This is true into superior medial trapezius, but not the left, only on the right side. The patient shows good rotational motion of cervical spine, both laterally greater than 45 degrees, closer to 90 degrees. Full extension, full forward flexion without significant pain reported. EXTREMITIES: The patient's upper extremities show deep tendon reflexes 2+ in the biceps, triceps tendons. Motor exam is approximately 4 on a scale of 5 with right land classifier 5/5 on the left. Bicep and tricep flexion likewise is 4/5 on the right, 5/5 on the left. Peripheral pulses are 2+ radial distribution. No peripheral edema is noted bilaterally. Shoulder shrug is strong and intact without loss of strength on resistance, but with significant pain in the right arm and shoulder, mostly in the triceps and into the forearm. This is true with abduction of the shoulder to 90 degrees without loss of strength on resistance, but with significant pain in the right side only with resistance. The patient's lower extremities show deep tendon reflexes at 1+ in the patellar and tendo calcaneus tendons. Motor exam is approximately 4 on a scale of 5 on the right with dorsiflexion and extension, 5/5 on the left. Peripheral pulses are 1+ posterior tibia. No peripheral edema is noted in the upper or lower extremities. Options were discussed with the patient. The patient's old chart was reviewed as her current medication regimen updated. Current review of systems updated today as well. We will proceed with a right L4-L5 transforaminal injection today with fluoroscopic guidance. Risks were again discussed including, but not limited to bleeding, infection, possibility of epidural hematoma, subsequent neurologic compromise, dural puncture headaches, spinal cord and/or nerve damage, side effects of steroid medication and potential injection into the vertebral artery at that level with permanent ischemic damage as well as side effects of steroid medication, exposure to fluoroscopy and poor results regarding pain control. The patient understands and wished to proceed. The patient will return to clinic in approximately 2 weeks for followup where we will plan on cervical epidural steroid injection on the patient's return for her C6-C7 right-sided cervical radiculopathy with MRI scan as noted. The patient will continue with stretching and strengthening exercises as she has done physical therapy for the neck and the low back and has continued to do these as well. Encouraged her to do this as much as tolerated and stretching exercises with the shoulders and arms as well as the neck. The patient will return to clinic in approximately 2 weeks as scheduled. DIAGNOSIS: Right lumbar radiculopathy. PROCEDURE: Right L4-L5 transforaminal epidural injection using C-arm fluoroscopic guidance under sterile prep and drape using local anesthetic. MEDICATION INJECTED: A total of 80 mg Depo-Medrol plus 1.5 mL of contrast with negative aspiration. Good localization of the Lalo needle 22-gauge both AP, oblique, and lateral views and negative aspiration and good contrast spread medially into the epidural space as well as laterally along the L4-L5 nerve root. Negative uptake and wash out with a digital subtraction on fluoroscopy. CONDITION AT DISCHARGE: Stable. The patient tolerated the procedure well, had no complications. AB KARIMI MD DR: PALMIRA/nts JOB#: [id number] / [id number]
== END | disposition home or self-care (01) ==
LOC: PNCL 10:49
PROVIDERS: ATTEND Anesthesiology
DX: M51.16 Intervertebral disc disorders with radiculopathy, lumbar region (principal)
CPT/HCPCS: 64483; J1040; J3490; Q9965

== ENCOUNTER → 2018-12-17 | Outpatient (CLI) | payer OTHER ==
[2017-06-19 13:25] VITALS: BP 139/64
[~2018-12-17] MED LIST changes: -BUPIVACAINE MPF 0.25% 10 ML VIAL. ONE; +GADOTERATE 7.5 MMOL/15ML VIAL. IVP ONE; -IOHEXOL 180 MG/ML 10 ML VIAL. ONE; -methylPREDNISolone ACETATE 80 MG/ML VIAL. ONE
--- NOTE | 2018-12-17 16:04 | RAD ---
MRI of the Brain without and with Contrast 12/17/2018 Clinical History: Headaches for one month. Technique: Unenhanced T1-weighted sagittal and axial and FLAIR, T2-weighted, susceptibility weighted and diffusion-weighted axial images of the brain were obtained. After the intravenous administration of 15 cc of Dotarem, enhanced T1-weighted axial and coronal images of the brain were obtained. Findings: The ventricles and sulci are within normal limits in size and configuration. No area of abnormal signal intensity is seen involving the brain parenchyma. No abnormal area of contrast enhancement is seen. No extra-axial fluid collection is noted. There is no MRI evidence of acute ischemia/infarction. Mild mucosal thickening is seen scattered throughout the paranasal sinuses. A 3.2 cm heterogeneous signal intensity masslike lesion is seen involving left maxillary sinus. This demonstrates heterogeneous enhancement. This may represent a polyp or papilloma. Small to moderate-sized bilateral mastoid effusions are seen. Normal flow voids are seen within the major vascular structures surrounding the brain parenchyma. Impression: 1. Negative MRI of the brain. 2. Paranasal sinus and mastoid disease as discussed above. 3.2 cm masslike lesion is seen within the left maxillary sinus which may represent a polyp or papilloma. Electronically signed by: Eloy Martins MD (12/17/2018 4:01 PM) [id number]
== END | disposition home or self-care (01) ==
LOC: MRI 15:03
PROVIDERS: ATTEND Psychiatry & Neurology Neurology
DX: J32.0 Chronic maxillary sinusitis (principal); J34.89 Other specified disorders of nose and nasal sinuses; H74.8X3 Other specified disorders of middle ear and mastoid, bilateral
CPT/HCPCS: 70553; A9575

== ENCOUNTER → 2018-12-24 | Outpatient (CLI) | payer OTHER ==
[2017-06-19 13:25] VITALS: BP 139/64
[~2018-12-24] MED LIST changes: -GADOTERATE 7.5 MMOL/15ML VIAL. IVP ONE; +IOHEXOL 180 MG/ML 10 ML VIAL. ONE; +methylPREDNISolone ACETATE 40 MG/ML VIAL. ONE; +methylPREDNISolone ACETATE 80 MG/ML VIAL. ONE
--- NOTE | 2018-12-24 14:16 | PAIN ---
DATE OF SERVICE: 12/24/2018 DIAGNOSES: 1. Lumbar radiculopathy with lumbar degenerative disk disease, lumbar herniated disk. 2. Cervical radiculopathy with cervical degenerative disk disease. HISTORY OF PRESENT ILLNESS: The patient is a 48-year-old female who returns for followup status post lumbar epidural steroid injections, and on her last visit, we discussed a cervical epidural steroid injection as she has significant findings on her cervical MRI scan with some significant radicular pain in the right upper extremity. The patient reports her pain is an 8-9 on a scale of 10 at its worst, 6-7 on average, 5-6 at its least and is a 6 today. The patient reports it is tingling, cramping, aching, dull, shooting in the right upper extremity, base of the neck, becoming more constant with time and with some numbness and tingling in the hand with dropping some items in the right hand as well. The patient reports it is awakening her from sleep about 3-4 times a night. The patient reports no new motor or sensory deficits or other complaints. She did have a lumbar injection on her most recent visit prior to that with 80% improvement and is still currently improved in the low back and legs. The patient reports no new motor or sensory deficits, no new bowel or bladder incontinence. PHYSICAL EXAMINATION: VITAL SIGNS: The patient's blood pressure 124/94, pulse 105, respirations are 16, temperature 98.0 degrees Fahrenheit, height is 5 feet 10 inches, weight 162 pounds. GENERAL: The patient is awake, alert, oriented, appropriate, very pleasant demeanor. HEENT: Head shows normocephalic, atraumatic. Extraocular movements are intact and symmetrical. Oral cavity, mucous membranes are moist and pink. Dentition intact. NECK: Shows anterior throat supple without palpable lymphadenopathy noted. Swallow reflex is symmetrical. CHEST: Shows normal with inspection. Breath sounds clear to auscultation bilaterally. HEART: Shows S1, S2 clear. No murmurs auscultated. ABDOMEN: Soft, nontender, nondistended. No palpable organomegaly is noted. No rebound or guarding demonstrated. BACK: Shows spine grossly in the midline. Normal-appearing thoracic kyphosis and lumbar lordotic curvature. Lumbar paraspinous muscle shows symmetrical on appearance, with palpation shows some moderate tenderness diffusely bilaterally, but only diffusely without significant radiation. The patient shows good rotational motion of lumbar spine, both laterally as well as extension and flexion. NECK: Shows posterior cervical musculature is symmetrical on inspection, with palpation shows some moderate tenderness diffusely bilaterally, but only diffusely. The patient has good rotational motion of the cervical spine, however, both laterally as well as extension and flexion with some mild tenderness with extension, but not with forward flexion. EXTREMITIES: Upper extremities show deep tendon reflexes at 2+ in the biceps, triceps tendons. Motor exam is strong with approximately 4/5 cut and print machine operator strength on the right and 5/5 on the left. Peripheral pulses are 2+ radial distribution. No peripheral edema is noted bilaterally. Options were discussed with the patient. The patient's old chart was reviewed as her current medication regimen updated. Current review of systems updated today as well. We will proceed with a cervical epidural steroid injection today with fluoroscopic guidance. Risks were again discussed including, but not limited to bleeding, infection, possibility of epidural hematoma, subsequent neurologic compromise, dural puncture, headaches, spinal cord and/or nerve damage, side effects of steroid medication and poor results regarding pain control. The patient understands and wished to proceed. The patient will return to clinic in approximately 2 weeks for followup. She was counseled on return appointment, activity level and side effects to be aware of. DIAGNOSES: Cervical radiculopathy with cervical degenerative disk disease. PROCEDURE: Cervical epidural steroid injection, translaminar approach C6-C7 level using C-arm fluoroscopic guidance under sterile prep and drape using local anesthetic. MEDICATION INJECTED: A total of 120 mg Depo-Medrol, plus 5 mL preservative-free normal saline and 2 mL of Isovue for contrast. CONDITION ON DISCHARGE: Stable. The patient tolerated the procedure well, had no complications. AB KARIMI MD DR: PALMIRA/andres JOB#: [id number] / [id number]
== END ==
LOC: PNCL 13:02
PROVIDERS: ATTEND Anesthesiology
DX: M50.123 Cervical disc disorder at C6-C7 level with radiculopathy (principal); M51.16 Intervertebral disc disorders with radiculopathy, lumbar region
CPT/HCPCS: 62321; J1030; J1040; Q9965

== ENCOUNTER → 2019-01-12 | Outpatient (CLI) | payer OTHER ==
[2017-06-19 13:25] VITALS: BP 139/64
[~2019-01-12] MED LIST changes: -IOHEXOL 180 MG/ML 10 ML VIAL. ONE; -methylPREDNISolone ACETATE 40 MG/ML VIAL. ONE; -methylPREDNISolone ACETATE 80 MG/ML VIAL. ONE
--- NOTE | 2019-01-12 10:55 | PAIN ---
DATE OF SERVICE: 01/12/2019 PROGRESS NOTE FOR PAIN CLINIC DIAGNOSES: 1. Cervical radiculopathy with cervical degenerative disk disease. 2. Lumbar radiculopathy with lumbar degenerative disk disease and lumbar herniated disk. HISTORY OF PRESENT ILLNESS: The patient is a 48-year-old female who returns for followup status post cervical epidural steroid injection x 1. The patient reports about 75% improvement in her pain initially, now about 50% overall over the past week or so. Pain has been returning slightly. The patient reports still some pain with reaching forward or holding items and any weightbearing in the right arm and shoulder, with radiating pain into the anterior biceps and anterior forearm, into the thumb on the right side and first finger. The patient has a tugging pain in the base of the neck. Rates her pain as an 8 on a scale of 10 at its worst in the past week, 6 on average and 6 at its least and is a 6 today. The patient reports it is aching, sharp, tight, shooting, cramping, radiating, becoming constant with weightbearing and exercise. The patient reports she is sleeping well at night. It does not awaken her from sleep frequently, but occasionally while she lays on her right side. The patient reports no new motor or sensory deficits. No new changes. PHYSICAL EXAMINATION: VITAL SIGNS: The patient's blood pressure is 134/86, pulse 87, respirations 18 and temperature is 98.2 degrees Fahrenheit. Height is 5 feet 1 inches, weight is 161 pounds. GENERAL: The patient is awake, alert, oriented and appropriate. She has very pleasant demeanor. HEENT EXAMINATION: Shows normocephalic and atraumatic. Extraocular movements are intact and symmetrical. Oral cavity, mucous membranes are moist and pink. Dentition is intact. NECK: Shows anterior throat supple, without palpable lymphadenopathy noted. Swallow reflex is symmetrical. CHEST: Shows normal with inspection. Breath sounds are clear to auscultation bilaterally. HEART: Shows S1, S2 clear. No murmurs auscultated. ABDOMEN: Soft, nontender and nondistended. BACK: Shows spine grossly in the midline. Cervical paraspinous muscle shows symmetrical on inspection. With palpation, there is some moderate tenderness diffusely bilaterally in the inferior aspect of the cervical paraspinous musculature, but full rotation motion greater than 45 degrees right and left, closer to 90 degrees as well as extension and flexion, without significant increase in pain performed of the cervical spine. EXTREMITIES: Upper extremities show deep tendon reflexes 2+ in the biceps and triceps tendons. Motor exam is approximately a 5 on a scale of 5 with facility service associate strength on the left and 4/5 on the right. Peripheral pulses are 2+ radial distribution. No peripheral edema is noted. Options were discussed with the patient. The patient's old chart was reviewed as was her current medication regimen updated. Current review of systems updated today as well. We will proceed with preauthorization for a second cervical epidural steroid injection. The patient did very well initially for the first few weeks following the first injection at the C6-C7 dermatomal distribution, with radiculopathy returning on the right side. We will plan on repeat translaminar approach at C6-C7 level cervical epidural steroid injection. The patient will continue with stretching and strengthening exercises on her own and is keeping her right arm and shoulder as mobile as possible and as best tolerated. AB KARIMI MD DR: PALMIRA/andres JOB#: [id number] / [id number]
== END | disposition home or self-care (01) ==
LOC: PNCL 09:50
PROVIDERS: ATTEND Anesthesiology
DX: M50.10 Cervical disc disorder with radiculopathy, unspecified cervical region (principal); M51.16 Intervertebral disc disorders with radiculopathy, lumbar region
CPT/HCPCS: G0463

== ENCOUNTER → 2019-03-23 | Outpatient (CLI) | payer OTHER ==
[2017-06-19 13:25] VITALS: BP 139/64
--- NOTE | 2019-03-23 23:13 | PAIN ---
DATE OF SERVICE: 03/23/2019 PROGRESS NOTE FOR PAIN CLINIC DIAGNOSES: 1. Lumbar radiculopathy with lumbar degenerative disk disease and lumbar herniated disk. 2. Cervical radiculopathy with cervical degenerative disk disease. HISTORY OF PRESENT ILLNESS: The patient is a 49-year-old female who returns for followup status post evaluation and preauthorization for cervical epidural steroid injection #2. The patient has obtained that and would like to wait a bit as she is having some sinus work done with her ENT physician and she is on a current regimen of nasal lavages 3 times daily and this seems to be getting better, but she would like to get this out of the way. First, she has had followup and an endoscopy planned later in the month. The patient reports still significant pain in the base of the neck and right upper extremity, but it is also better since her last shot. The patient reports it is 7 on a scale of 10 at its worst in the past week, 5 on average and 3 at its least and is a 5 today. The patient reports tingling, aching, shooting in the right arm into the hand and fingers with numbness and tingling in the fingers, worse at night, awakens her from sleep occasionally, worse with repetitive motions. She is still unable to reach her hand over her head on the right side secondary to pain in the superior aspect of the shoulder and the posterior upper arm and the entire forearm with numbness and tingling in the hand. The patient reports otherwise no new motor or sensory deficits, no new changes. PHYSICAL EXAMINATION: VITAL SIGNS: The patient's blood pressure 129/97, pulse 87, respirations 18, temperature is 98.5 degrees Fahrenheit, height is 5 feet 10 inches, weight is 164 pounds. GENERAL: The patient is awake, alert, oriented, appropriate, very pleasant demeanor. HEENT: Head shows normocephalic, atraumatic. Extraocular movements are intact and symmetrical. Oral cavity: Mucous membranes moist and pink. Dentition is intact. NECK: Shows anterior throat supple without palpable lymphadenopathy noted. Swallow reflex symmetrical. CHEST: Shows normal on inspection. Breath sounds are clear to auscultation bilaterally. HEART: Shows S1, S2 clear. No murmurs auscultated. ABDOMEN: Soft, nontender, nondistended. No palpable organomegaly is noted. No rebound or guarding demonstrated. BACK: Shows spine grossly in midline, normal appearing cervical lordotic curvature, thoracic kyphotic curvature and some slight flattening of lumbar lordotic curvature. Cervical paraspinous musculature shows symmetrical on inspection, on palpation shows some moderate tenderness diffusely, but only diffusely without significant radiation in the middle and lower distribution of paraspinous muscles, slightly worse on the right in the superior medial trapezius but without trigger points, without radiation or asymmetry. The patient has good rotational motion of cervical spine, both laterally as well as extension and flexion without significant difficulty. EXTREMITIES: Upper extremities show deep tendon reflexes at 2+ in the biceps and triceps tendons. Motor exam is approximately 4 on a scale of 5 on the right, 5/5 in left with clerk supervisor strength, bicep and triceps flexion. Options were discussed with the patient. The patient's old chart was reviewed as her current medication regimen updated. Current review of systems updated today as well. We will have the patient return after her nasal endoscopy for a second cervical epidural steroid injection as she is preauthorized until 04/19, have her return after ENT appointment as scheduled. AB KARIMI MD DR: PALMIRA/andres JOB#: [id number] / [id number]
== END | disposition home or self-care (01) ==
LOC: PNCL 10:15
PROVIDERS: ATTEND Anesthesiology
DX: M51.16 Intervertebral disc disorders with radiculopathy, lumbar region (principal); M50.10 Cervical disc disorder with radiculopathy, unspecified cervical region; M40.46 Postural lordosis, lumbar region; M40.294 Other kyphosis, thoracic region
CPT/HCPCS: G0463

== ENCOUNTER → 2019-04-15 | Outpatient (CLI) | payer OTHER ==
[2017-06-19 13:25] VITALS: BP 139/64
[~2019-04-15] MED LIST changes: +IOHEXOL 180 MG/ML 10 ML VIAL. ONE; +methylPREDNISolone ACETATE 40 MG/ML VIAL. ONE; +methylPREDNISolone ACETATE 80 MG/ML VIAL. ONE
--- NOTE | 2019-04-15 13:53 | PAIN ---
DATE OF SERVICE: 04/15/2019 PROGRESS NOTE FOR PAIN CLINIC DIAGNOSES: 1. Lumbar radiculopathy with lumbar degenerative disk disease and lumbar herniated disk. 2. Cervical radiculopathy with cervical degenerative disk disease. HISTORY OF PRESENT ILLNESS: The patient is a 49-year-old female who returns for followup status post cervical epidural steroid injection and lumbar epidural steroid injection. The patient did well with each of these, most recent cervical injection was 12/24/2018. The patient reports she did very well. No new motor or sensory deficits, but the pain is returning now in the base of neck and right upper extremity. We discussed this with her last month and she had a cold and has now finished her antibiotics with this and returns today wishing to proceed. The patient reports still pain in the base of the neck, right upper extremity, right arm shooting into the posterior triceps into the posterior and anterior aspect of the forearm into the hand with numbness and tingling in all the fingers. The patient reports it is aching type, shooting, tingling, radiating on the right side. The patient reports it is an 8 on a scale of 10 at its worst, 4-5 at its average and 3-4 at its least and is a 5 today. The patient reports no new motor or sensory deficits or other changes. Awakens her from sleep at night about every 5 hours. PHYSICAL EXAMINATION: VITAL SIGNS: The patient's blood pressure 138/102, pulse 98, respirations 16, temperature is 98.1 degrees Fahrenheit, height is 5 feet 10 inches, weight is 165 pounds. GENERAL: The patient is awake, alert, oriented, appropriate, very pleasant demeanor. HEENT: Head shows normocephalic, atraumatic. Extraocular movements are intact and symmetrical. Oral cavity: Mucous membranes moist and pink. Dentition is intact. NECK: Shows anterior throat supple without palpable lymphadenopathy noted. Swallow reflex symmetrical. CHEST: Shows normal on inspection. Breath sounds clear to auscultation bilaterally. HEART: Shows S1, S2 clear. No murmurs auscultated. ABDOMEN: Soft, nontender, nondistended. No palpable organomegaly is noted. No rebound or guarding demonstrated. BACK: Shows spine grossly in the midline. Cervical paraspinous muscle shows symmetrical on inspection. The patient's good rotational motion of cervical spine, both laterally as well as extension and flexion without significant difficulty. EXTREMITIES: The patient's upper extremities show deep tendon reflexes 2+ in biceps, triceps tendons. Motor exam is approximately 4 on a scale of 5 on the right with sql database developer strength, bicep and tricep flexion and 5/5 on the left. Peripheral pulses are 2+ radial distribution. No peripheral edema is noted bilaterally. Options were discussed with the patient. The patient's old chart was reviewed as her current medication regimen updated. Current review of systems updated today as well. We will proceed with a cervical epidural steroid injection second in the series today with fluoroscopic guidance. Risks were again discussed including, but not limited to bleeding, infection, possibility of epidural hematoma, subsequent neurological compromise, dural puncture, headaches, spinal cord and/or nerve damage, side effects of steroid medication and poor results regarding pain control. The patient understands and wished to proceed. The patient will return to clinic in approximately 2 weeks for followup. She was counseled on return appointment, activity level and side effects to be aware of. DIAGNOSES: Cervical radiculopathy with cervical degenerative disk disease. PROCEDURE: Cervical epidural steroid injection, translaminar approach C6-C7 level using C-arm fluoroscopic guidance under sterile prep and drape using local anesthetic. MEDICATION INJECTED: A total of 120 mg Depo-Medrol plus 5 mL of preservative-free normal saline and 2 mL of contrast. CONDITION AT DISCHARGE: Stable. The patient tolerated procedure well without complications. AB KARIMI MD DR: PALMIRA/andres JOB#: [id number] / [id number]
== END ==
LOC: PNCL 10:35
PROVIDERS: ATTEND Anesthesiology
DX: M50.123 Cervical disc disorder at C6-C7 level with radiculopathy (principal); M51.16 Intervertebral disc disorders with radiculopathy, lumbar region
CPT/HCPCS: 62321; J1030; J1040; Q9965

== ENCOUNTER → 2019-11-12 | Outpatient (CLI) | payer OTHER ==
[2017-06-19 13:25] VITALS: BP 139/64
[~2019-11-12] MED LIST changes: -IOHEXOL 180 MG/ML 10 ML VIAL. ONE; -OMEP20CA10 PO; +OMEP20CA16 PO; +TIZA4TAB2 PO; -methylPREDNISolone ACETATE 40 MG/ML VIAL. ONE; -methylPREDNISolone ACETATE 80 MG/ML VIAL. ONE
--- NOTE | 2019-11-12 12:28 | PAIN ---
DATE OF SERVICE: 11/12/2019 PROGRESS NOTE FOR PAIN CLINIC DIAGNOSES: 1. Cervical radiculopathy with cervical degenerative disk disease. 2. Lumbar radiculopathy with lumbar degenerative disk disease with lumbar herniated disk. HISTORY OF PRESENT ILLNESS: The patient is a 49-year-old female who returns for followup status post cervical epidural steroid injections, last in 04/2019. The patient reports she did very well with this with about 90% improvement until about 1 month ago. The patient reports the pain began to return in the base of neck, right upper extremity, right shoulder, it causes some headaches at times with some tingling and burning in the right arm and hand as well. The patient reports it is getting worse with activity, raising her hand over her head on the right side, also using her right arm to steer or drive the car, with weightbearing, repetitive motions, and lifting items, especially with reaching. The patient reports the pain is 10 on a scale of 10 at its worst over the past week, 7 on average, 5 at its least, and is a 7 today. The patient reports tingling and burning in the right hand and arm, radiating across the tricep and bicep, into the forearm anteriorly and into the hand, especially in the thumb and first and second fingers. The patient reports no significant radiation to the left side with pain in the base of the neck as well, it is fairly significant. The patient reports no loss of motor function, but significant fatigability with her right upper extremity. The patient reports it has been awakening her from sleep at night, especially with raising her right arm or sleep with her right arm above the left. PHYSICAL EXAMINATION: VITAL SIGNS: The patient's blood pressure 135/97, pulse 85, respirations 18, temperature 98.3 degrees Fahrenheit, weight is 166 pounds. GENERAL: The patient is awake, alert, oriented, appropriate, very pleasant demeanor. HEENT: Shows normocephalic, atraumatic. Extraocular movements are intact and symmetrical. Oral cavity shows mucous membranes moist and pink. Dentition is intact. NECK: Shows anterior throat supple without palpable lymphadenopathy noted. Swallow reflex symmetrical. CHEST: Shows normal on inspection. Breath sounds are clear bilaterally. HEART: Shows S1, S2 clear. No murmurs auscultated. ABDOMEN: Soft, nontender, nondistended. No palpable organomegaly is noted. There is no rebound or guarding demonstrated. BACK: Shows spine grossly in the midline. Normal appearing thoracic kyphosis, cervical lordotic curvature and lumbar lordotic curvature. Cervical paraspinous muscle shows symmetrical on inspection, on palpation shows some moderate tenderness diffusely, and significant tenderness in the middle and lower distribution of the cervical paraspinous musculature, especially on the right side, symmetrical on inspection, without trigger points with palpation, but is significantly tender without radiation. The patient shows some guarded rotational motion of cervical spine with extension as well as right lateral rotation, but not left lateral rotation and full forward flexion performed without difficulty. Trapezius musculature shows significant tenderness in the right side as well compared to the left, but without specific trigger points or radiation. EXTREMITIES: The patient's upper extremities show deep tendon reflexes 2+ in the biceps and triceps tendons. Motor exam is strong with patient access coordinator strength rated at 5/5 on the left, 4/5 on the right. Bicep and tricep flexion is 5/5 bilaterally. Peripheral pulses are 2+ in the radial distribution. No peripheral edema is noted. Shoulder shrug is strong and intact with some moderate tenderness with resistance, but no loss of strength on resistance bilaterally. Options were discussed with the patient. The patient's old chart was reviewed as her current medication regimen updated. Current review of systems updated today as well. We will preauthorize the patient for a cervical epidural steroid injection. She has done very well with these in the past. With still significant radicular pain in the C6-C7 dermatomal distribution on the right side, we will plan on translaminar cervical epidural steroid injection at the C6-C7 level. The patient will try Medrol Dosepak in the meantime. The patient was given instruction as well as side effects to be aware of with the medication and will follow up with approximately 1 week as scheduled for cervical epidural steroid injection at that time. AB KARIMI MD DR: PALMIRA/andres JOB#: [id number] / [id number]
== END ==
LOC: PNCL 11:25
PROVIDERS: ATTEND Anesthesiology
DX: M51.16 Intervertebral disc disorders with radiculopathy, lumbar region (principal); M50.10 Cervical disc disorder with radiculopathy, unspecified cervical region
CPT/HCPCS: G0463

== ENCOUNTER → 2019-11-26 | Outpatient (CLI) | payer OTHER ==
[2017-06-19 13:25] VITALS: BP 139/64
[~2019-11-26] MED LIST changes: +IOHEXOL 180 MG/ML 10 ML VIAL. ONE; +methylPREDNISolone ACETATE 40 MG/ML VIAL. ONE; +methylPREDNISolone ACETATE 80 MG/ML VIAL. ONE
--- NOTE | 2019-11-26 11:11 | PAIN ---
DATE OF SERVICE: 11/26/2019 PROGRESS NOTE FOR PAIN CLINIC DIAGNOSES: 1. Cervical radiculopathy with cervical degenerative disk disease. 2. Lumbar radiculopathy with lumbar degenerative disk disease with lumbar herniated disk. HISTORY OF PRESENT ILLNESS: The patient is a 49-year-old female who returns for followup status post preauthorization for cervical epidural steroid injection. She would like to proceed with that today. She has obtained authorization. Still has pain in the base of neck and right upper extremity as it was previously, radiating to the shoulder, arm, hand and the shoulder blade as well. The patient reports it is a 10 on a scale of 10 at its worst over the past week, 8 on average, 5 at its least and is an 8 today. The patient reports it is aching, tight, sharp, tingling, burning, dull, radiating, constant in the right upper extremity with some easy fatigue in the right hand and arm as well. The patient reports it does awaken her from sleep about every 4 hours. Reports no new motor or sensory deficits, no new changes. PHYSICAL EXAMINATION: VITAL SIGNS: The patient's blood pressure 157/100, pulse 70, respirations 18, temperature 98.8 degrees Fahrenheit, weight is 169 pounds. GENERAL: The patient is awake, alert, oriented, appropriate, very pleasant demeanor. HEENT: Shows normocephalic, atraumatic. Extraocular movements are intact and symmetrical. Oral cavity shows mucous membranes moist and pink. Dentition is intact. NECK: Shows anterior throat supple without palpable lymphadenopathy noted. Swallow reflex symmetrical. CHEST: Shows normal on inspection. Breath sounds are clear to auscultation bilaterally. HEART: Shows S1, S2 clear. No murmurs auscultated. ABDOMEN: Soft, nontender, nondistended. No palpable organomegaly is noted. There is no rebound or guarding demonstrated. BACK: Shows spine grossly in the midline. Cervical lordotic curvature is normal in appearance as is thoracic kyphotic curvature, has some slight flattening of lumbar lordotic curvature. Cervical paraspinous muscle shows symmetrical on inspection, with palpation shows some moderate tenderness in the middle and lower cervical distribution with palpation, more on the right than the left, but without specific trigger points. Significant tenderness as well in the superior medial trapezius on the right and into the rhomboid distribution on the right as well compared to the left, but symmetrical without trigger points or radiation. EXTREMITIES: The patient's upper extremities show deep tendon reflexes 2+ in the biceps, triceps tendons. Motor exam is approximately 4 on a scale of 5 on the right with firestopper installer strength, bicep and tricep flexion and 5/5 on the left. Peripheral pulses are 2+ radial. No peripheral edema is noted bilaterally. Options were discussed with the patient. The patient's old chart was reviewed as her current medication regimen updated. Current review of systems updated today as well. We will proceed with a cervical epidural steroid injection today with fluoroscopic guidance. Risks were again discussed including, but not limited to bleeding, infection, possibility of epidural hematoma, subsequent neurological compromise, dural puncture, headaches, spinal cord and/or nerve damage, side effects of steroid medication and poor results regarding pain control. The patient understands and wished to proceed. The patient will return to clinic in approximately 2 weeks for followup. She was counseled on return appointment, activity level and side effects to be aware of. DIAGNOSES: Cervical radiculopathy with cervical degenerative disk disease. PROCEDURE: Cervical epidural steroid injection, translaminar approach at C6-C7 level using C-arm fluoroscopic guidance under sterile prep and drape using local anesthetic. MEDICATION INJECTED: A total of 120 mg Depo-Medrol plus 10 mL of preservative-free normal saline and 2 mL of contrast. CONDITION AT DISCHARGE: Stable. The patient tolerated procedure well, had no complications. AB KARIMI MD DR: PALMIRA/andres JOB#: [id number] / [id number]
== END ==
LOC: PNCL 09:29
PROVIDERS: ATTEND Anesthesiology
DX: M50.123 Cervical disc disorder at C6-C7 level with radiculopathy (principal); M51.16 Intervertebral disc disorders with radiculopathy, lumbar region
CPT/HCPCS: 62321; J1030; J1040; Q9965

== ENCOUNTER → 2019-12-10 | Outpatient (CLI) | payer OTHER ==
[2017-06-19 13:25] VITALS: BP 139/64
[~2019-12-10] MED LIST changes: -IOHEXOL 180 MG/ML 10 ML VIAL. ONE; -methylPREDNISolone ACETATE 40 MG/ML VIAL. ONE; -methylPREDNISolone ACETATE 80 MG/ML VIAL. ONE
--- NOTE | 2019-12-10 11:40 | PAIN ---
DATE OF SERVICE: 12/10/2019 PROGRESS NOTE FOR PAIN CLINIC DIAGNOSES: 1. Cervical radiculopathy with cervical degenerative disk disease. 2. Lumbar radiculopathy with lumbar degenerative disk disease with lumbar herniated disk. HISTORY OF PRESENT ILLNESS: The patient is a 49-year-old female who returns for followup status post cervical epidural steroid injection x 1. The patient reports about 60% improvement after the first injection, still some pain in the right shoulder, right upper extremity in a radicular fashion as she has had previously as well as the base of the neck, more on the right than the left. The patient reports radiating pain into the anterior biceps as well as anterior forearm, into the thumb and first finger with a burning pain. The patient reports it is tight in the neck and throbbing at times and radiating to the right upper extremity, much better than it was. She has been increasing her activity at home, doing work activities, household activities with greater ease and comfort, traveling with greater ease, using her upper extremities, especially on the right side with greater ease, but still significant pain in the base of her neck and the right arm. The patient reports no new motor or sensory deficits, no new bowel or bladder incontinence. Reports it generally does not awaken her from sleep at night, feels better with resting on a high back chair with her head against the headrest as well. PHYSICAL EXAMINATION: VITAL SIGNS: Shows blood pressure 138/98, pulse 111, respirations are 18, temperature 98.6 degrees Fahrenheit, height is 5 feet 10 inches, weight is 163 pounds. GENERAL: The patient is awake, alert, oriented, appropriate, very pleasant demeanor. HEENT: Shows normocephalic, atraumatic. Extraocular movements are intact and symmetrical. Oral cavity shows mucous membranes moist and pink. Dentition is intact. NECK: Shows anterior throat supple without palpable lymphadenopathy noted. Swallow reflex symmetrical. CHEST: Shows normal on inspection. Breath sounds are clear to auscultation bilaterally. HEART: Shows S1, S2 clear. No murmurs auscultated. ABDOMEN: Soft, nontender, nondistended. No palpable organomegaly is noted. BACK: Shows spine grossly in the midline. Cervical paraspinous muscle shows symmetrical on inspection with normal cervical lordotic curvature with palpation shows some mild tenderness diffusely inferior cervical paraspinous muscles and into the superior medial trapezius, both right and left with some very firm rope-like musculature in the areas consistent with some trigger point muscles, more on the right than the left in the trapezius, but without radiation on palpation. The patient does show good rotational motion of cervical spine, both laterally greater than 45 degrees closer to 90 degrees as well as full extension, full forward flexion without significant increase in pain as well. EXTREMITIES: The patient's upper extremities show deep tendon reflexes 2+ in the biceps and triceps tendons are equal. 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 Bicep and tricep flexion likewise 4/5 right, 5/5 on the left. Peripheral pulses are 2+ radial. No peripheral edema bilaterally. Options were discussed with the patient. The patient's old chart was reviewed as her current medication regimen updated. Current review of systems updated today as well and we will preauthorize the patient for a second cervical epidural steroid injection as she did very well after the first injection, but the pain returning now in a radicular fashion C6-C7 dermatomal distribution on the right side. We will plan on cervical epidural steroid injection, translaminar approach at the C6-C7 level. The patient, in the meantime, will continue with stretching and strengthening exercises, maintain activity as tolerated with her right upper extremity. Also discussed some pressure and heat techniques for the trapezius musculature to release some of the muscular pain there as well. The patient will follow up as scheduled. We will plan on cervical epidural steroid injection on return. AB KARIMI MD DR: PALMIRA/andres JOB#: [id number] / [id number]
== END ==
LOC: PNCL 09:44
PROVIDERS: ATTEND Anesthesiology
DX: M51.16 Intervertebral disc disorders with radiculopathy, lumbar region (principal); M50.10 Cervical disc disorder with radiculopathy, unspecified cervical region
CPT/HCPCS: G0463

== ENCOUNTER → 2019-12-24 | Outpatient (CLI) | payer OTHER ==
[2017-06-19 13:25] VITALS: BP 139/64
[~2019-12-24] MED LIST changes: +IOHEXOL 180 MG/ML 10 ML VIAL. ONE; +methylPREDNISolone ACETATE 40 MG/ML VIAL. ONE; +methylPREDNISolone ACETATE 80 MG/ML VIAL. ONE
--- NOTE | 2019-12-24 13:34 | PAIN ---
DATE OF SERVICE: 12/24/2019 PROGRESS NOTE FOR PAIN CLINIC DIAGNOSES: 1. Cervical radiculopathy with cervical degenerative disk disease. 2. Lumbar radiculopathy with lumbar degenerative disk disease and lumbar herniated disk. HISTORY OF PRESENT ILLNESS: The patient is a 49-year-old female who returns for followup status post cervical epidural steroid injection x 1. The patient reports she did very well after the last injection with about 65% improvement. The patient reports approximately 80% improvement, now about 60% improvement overall. The patient had been preauthorized for second injection today and would like to proceed, still pain in the base of neck and shoulders, more on the left than the right upper extremity at this time, although the right one was worse on her last visit. The patient reports it is an 8 on a scale of 10 at its worse for the past week, 4-5 on an average, 3 at its least and is a 4 today. The patient reports no new motor or sensory deficits, no new changes, no new bowel or bladder incontinence. The patient reports that her neck and shoulders have "loosened up" since she has been doing some stretching and strengthening exercises and using a tennis ball for some pressure massage as well. The patient reports the pain is aching and tight, mostly in the base of the neck and shoulders, tingling, burning, cramping bilaterally in the upper extremities. The patient reports no new changes, no new deficits. PHYSICAL EXAMINATION: VITAL SIGNS: The patient's blood pressure is 158/101, pulse 99, respirations 16, temperature is 98.9 degrees Fahrenheit, weight is 163 pounds. GENERAL: The patient is awake, alert, oriented, appropriate, very pleasant demeanor. HEENT: Shows normocephalic, atraumatic. Extraocular movements are intact and symmetrical. Oral cavity: Mucous membranes moist and pink. Dentition is intact. NECK: Shows anterior throat supple without palpable lymphadenopathy noted. Swallow reflex symmetrical. CHEST: Shows normal on inspection. Breath sounds are clear. No rales, rhonchi or wheezes auscultated. HEART: Shows S1, S2 clear. No murmurs auscultated. ABDOMEN: Soft, nontender, nondistended. BACK: Shows spine grossly in the midline. Cervical paraspinous muscle shows symmetrical on inspection with normal cervical lordotic curvature. Cervical paraspinous muscles on palpation shows some moderate tenderness diffusely in the inferior aspect of the cervical paraspinous musculature, slightly more on the left than the right superior medial trapezius, but without specific trigger points, without radiation or asymmetry. The patient has good rotational motion of cervical spine, both laterally greater than 45 degrees closer to 90 degrees as well as full extension, full forward flexion without significant pain reported. EXTREMITIES: The patient's upper extremities show deep tendon reflexes 2+ in the biceps and triceps tendons. Motor exam is approximately 4 on a scale of 5 on the right and 5/5 on the left with air chipper strength, bicep and tricep flexion. Peripheral pulses are 2+ radial. No peripheral edema is noted bilaterally. Options were discussed with the patient. The patient's old chart today was reviewed as her current medication regimen updated. Current review of systems updated today as well and we will proceed with a second cervical epidural steroid injection today with fluoroscopic guidance. Risks were again discussed including, but not limited to bleeding, infection, possibility of epidural hematoma, subsequent neurological compromise, dural puncture, headaches, spinal cord and/or nerve damage, side effects of steroid medication and poor results regarding pain control. The patient understands and wished to proceed. The patient will return to clinic in approximately 2 weeks for followup, was counseled on return appointment, activity level and side effects to be aware of. DIAGNOSES: Cervical radiculopathy with cervical degenerative disk disease. PROCEDURE: Cervical epidural steroid injection, translaminar approach C6-C7 level using C-arm fluoroscopic guidance under sterile prep and drape using local anesthetic. MEDICATION INJECTED: A total of 120 mg Depo-Medrol plus 5 mL preservative-free normal saline and 2 mL of contrast. CONDITION AT DISCHARGE: Stable. The patient tolerated the procedure well, had no complications. AB KARIMI MD DR: PALMIRA/andres JOB#: [id number] / [id number]
== END ==
LOC: PNCL 09:55
PROVIDERS: ATTEND Anesthesiology
DX: M50.123 Cervical disc disorder at C6-C7 level with radiculopathy (principal); M51.16 Intervertebral disc disorders with radiculopathy, lumbar region
CPT/HCPCS: 62321; J1030; J1040; Q9965

== ENCOUNTER → 2020-01-10 | Outpatient (CLI) | payer OTHER ==
[2017-06-19 13:25] VITALS: BP 139/64
[~2020-01-10] MED LIST changes: -IOHEXOL 180 MG/ML 10 ML VIAL. ONE; -methylPREDNISolone ACETATE 40 MG/ML VIAL. ONE; -methylPREDNISolone ACETATE 80 MG/ML VIAL. ONE
--- NOTE | 2020-01-10 13:07 | PAIN ---
DATE OF SERVICE: 01/10/2020 PROGRESS NOTE FOR PAIN CLINIC DIAGNOSES: 1. Cervical radiculopathy with cervical degenerative disk disease. 2. Lumbar radiculopathy with lumbar degenerative disk disease. HISTORY OF PRESENT ILLNESS: The patient is a 49-year-old female who returns for followup status post cervical epidural steroid injection x 2. The patient reports a significant decrease in pain, near 100% improvement in her neck and upper extremities. The patient reports her chief complaint today, however, is low back pain and pain radiating into the left lower extremity. The patient reports she slipped on a ball at home as she was using to play fetch with the dog, she slipped on it and fell on her left side and manuel her back. The patient reports since that time, she has had pain across the back, mostly on the left, radiating into posterior gluteus, posterolateral thigh, lateral anterior thigh, anterior medial thigh and lower leg and posterior calf on the left side for about 1-1/2 weeks now. The patient reports the pain is a 9 on a scale of 10 at its worst in the low back and left leg, 7-8 on average, 3 at its least and is a 7 today. The patient reports it is worse with walking, standing, changing positions, better with sitting or lying down, awaken her from sleep about every 4-5 hours. Neck and shoulders had very much improvement. She is doing household activities with greater ease and comfort with upper extremities, neck and shoulders, sleeping better in that regard, but the back now and left leg are much more painful. The patient described as cramping and stabbing, radiating, becoming more constant and severe with walking, standing, changing positions. No bowel or bladder incontinence, but some increased pain with constipation noted also. PHYSICAL EXAMINATION: VITAL SIGNS: The patient's blood pressure 132/89, pulse 91, respirations 16, temperature 98.1 degrees Fahrenheit, height is 5 feet 10 inches, weight is 163 pounds. GENERAL: The patient is awake, alert, oriented, appropriate, very pleasant demeanor. HEENT: Shows normocephalic, atraumatic. Extraocular movements are intact and symmetrical. Oral cavity: Mucous membranes moist and pink. NECK: Shows anterior throat supple. CHEST: Shows normal on inspection. Breath sounds are clear bilaterally. HEART: Shows S1, S2 clear. ABDOMEN: Soft, nontender. BACK: Shows spine grossly in the midline. Cervical paraspinous muscle shows symmetrical on inspection, on palpation shows some moderate tenderness, but only diffusely with good rotational motion bilaterally throughout the cervical spine, with lateral rotation as well as extension and flexion without pain reported. EXTREMITIES: The patient's upper extremities show deep tendon reflexes 2+ in the biceps and triceps tendons. Motor exam is strong with bus aide strength rated at 5/5 and equal. The patient's lower extremities show deep tendon reflexes at 2+ patellar, 1+ tendo-calcaneus tendons. Motor exam is strong with 5/5 dorsiflexion, extension, quadriceps and hamstring flexion. The patient's straight leg raise noted to be negative for reproduction of radicular symptoms. Gaenslen's and Ortiz's maneuvers are negative bilaterally. The patient's lumbar spine shows midline spine with some moderate tenderness on palpation in the lumbar paraspinous musculature, which are symmetrical on inspection, but diffusely tender, more on the left than the right in the low lumbar distribution with very firm, very tight, compared to the right side, but without specific trigger points and without radiation on palpation. The patient does show good rotational motion of lumbar spine, both laterally greater than 10 degrees right and left as well as extension greater than 10 degrees, forward flexion 45 degrees without significant increase in pain. Options were discussed with the patient. The patient's old chart was reviewed as her current medication regimen updated. Current review of systems updated today as well. We will try Medrol Dosepak initially. Also, we will preauthorize the patient for a lumbar epidural steroid injection. She has a clinical L4-L5 dermatomal distribution radiculopathy on the left after an injury at home. The patient will continue with stretching and strengthening exercises as she has been doing, heat application in the lumbar spine as well, we will continue this and we will preauthorize for a lumbar epidural steroid injection for a translaminar approach at the L4-L5 level for the clinical L4-L5 left-sided radiculopathy. The patient will try Medrol Dosepak, again was given instruction as well as side effects to be aware of and will follow up once authorization is obtained for the procedure. AB KARIMI MD DR: PALMIRA/andres JOB#: [id number] / [id number]
== END | disposition home or self-care (01) ==
LOC: PNCL 10:57
PROVIDERS: ATTEND Anesthesiology
DX: M51.16 Intervertebral disc disorders with radiculopathy, lumbar region (principal); M50.10 Cervical disc disorder with radiculopathy, unspecified cervical region
CPT/HCPCS: G0463

== ENCOUNTER 2020-04-02 09:18 | Emergency (ER) | payer OTHER ==
[~2020-04-02] VITALS: Ht 177.8 cm; Wt 71.8 kg
--- NOTE | 2020-04-02 09:35 | PHYS DOC ---
Past Medical History Past Medical History: Asthma, Depression, GERD, Schizophrenia Additional Past Medical Histor: chronic leg pain, Past Surgical History: , Hysterectomy Smoking Status: Current Every Day Smoker Alcohol Use: None Drug Use: None General Adult EDM: Chief Complaint: ABDOMINAL PAIN HPI: HPI: The history was obtained from the patient. Patient is a 50-year-old female with PMH chronic low back pain, depression who presents with a chief complaint of sudden onset right flank pain. Patient states the pain began at some point overnight. She states that she tried to toss and turn in bed but this did not improve her pain. She has not taken any medication prior to arrival. States pain is a sharp right-sided flank pain that radiates down her right leg. She denies any dysuria, increased urge to void, or hematuria. She denies any chest pain or back pain. Denies syncope. She states she does have some shortness of breath associated with the pain. She denies any history of kidney stones. Denies injury or trauma. States it is difficult to find a position of comfort. Does note some nausea without vomiting. Notes a history of tubal ligation. Denies any vaginal bleeding or discharge. No other complaints. Review of Systems: Review of Systems: Constitutional: Denies fever or chills. [] Eyes: Denies change in visual acuity. [] HENT: Denies nasal congestion or sore throat. [] Respiratory: Denies cough or shortness of breath. [] Cardiovascular: Denies chest pain or edema. [] GI: Denies abdominal pain, nausea, vomiting, bloody stools or diarrhea. [] : Positive for right flank pain Musculoskeletal: Denies back pain or joint pain. [] Integument: Denies rash. [] Neurologic: Denies headache, focal weakness or sensory changes. [] Endocrine: Denies polyuria or polydipsia. [] Lymphatic: Denies swollen glands. [] Psychiatric: Denies depression or anxiety. [] Heart Score: Risk Factors: Risk Factors: DM, Current or recent (<one month) smoker, HTN, HLP, family history of CAD, obesity. Risk Scores: Score 0 - 3: 2.5% MACE over next 6 weeks - Discharge Home Score 4 - 6: 20.3% MACE over next 6 weeks - Admit for Clinical Observation Score 7 - 10: 72.7% MACE over next 6 weeks - Early Invasive Strategies Allergies: Allergies: Allergies Coded Allergies Type Severity Reaction Last Updated Verified varenicline Allergy Intermediate 12/10/19 Yes Physical Exam: PE: Constitutional: Well developed, well nourished, no acute distress, non-toxic appearance. [] HENT: Normocephalic, atraumatic, bilateral external ears normal, oropharynx moist, no oral exudates, nose normal. [] Eyes: PERRLA, EOMI, conjunctiva normal, no discharge. [] Neck: Normal range of motion, no tenderness, supple, no stridor. [] Cardiovascular:Heart rate regular rhythm, no murmur [] Lungs & Thorax: Bilateral breath sounds clear to auscultation [] Abdomen: Soft, nontender, nonacute abdomen. No involuntary guarding or rigidity noted. No acute peritonitis. Moderate right CVA tenderness Skin: Warm, dry, no erythema, no rash. [] Back: No tenderness, no CVA tenderness. [] Extremities: No tenderness, no cyanosis, no clubbing, ROM intact, no edema. [] Neurologic: Alert and oriented X 3, normal motor function, normal sensory function, no focal deficits noted. [] Psychologic: Affect normal, judgement normal, mood normal. [] Current Patient Data: Labs: Laboratory Tests Test 04/02/20 09:41 04/02/20 10:26 White Blood Count 7.1 x10^3/uL Red Blood Count 4.32 x10^6/uL Hemoglobin 13.8 g/dL Hematocrit 39.4 % Mean Corpuscular Volume 91 fL Mean Corpuscular Hemoglobin 32 pg Mean Corpuscular Hemoglobin Concent 35 g/dL Red Cell Distribution Width 13.9 % Platelet Count 233 x10^3/uL Neutrophils (%) (Auto) 67 % Lymphocytes (%) (Auto) 25 % Monocytes (%) (Auto) 5 % Eosinophils (%) (Auto) 3 % Basophils (%) (Auto) 1 % Neutrophils # (Auto) 4.7 x10^3/uL Lymphocytes # (Auto) 1.8 x10^3/uL Monocytes # (Auto) 0.3 x10^3/uL Eosinophils # (Auto) 0.2 x10^3/uL Basophils # (Auto) 0.1 x10^3/uL Sodium Level 137 mmol/L Potassium Level 3.4 mmol/L Chloride Level 102 mmol/L Carbon Dioxide Level 28 mmol/L Anion Gap 7 Blood Urea Nitrogen 17 mg/dL Creatinine 1.0 mg/dL Estimated GFR (Cockcroft-Gault) 58.7 BUN/Creatinine Ratio 17 Glucose Level 113 mg/dL Calcium Level 9.3 mg/dL Total Bilirubin 0.5 mg/dL Aspartate Amino Transf (AST/SGOT) 12 U/L Alanine Aminotransferase (ALT/SGPT) 21 U/L Alkaline Phosphatase 129 U/L Total Protein 7.3 g/dL Albumin 3.8 g/dL Albumin/Globulin Ratio 1.1 Lipase 60 U/L Urine Collection Type Void Urine Color Yellow Urine Clarity Clear Urine pH 6.0 Urine Specific [place] 1.010 Urine Protein Negative mg/dL Urine Glucose (UA) Negative mg/dL Urine Ketones (Stick) Negative mg/dL Urine Blood Moderate Urine Nitrite Negative Urine Bilirubin Negative Urine Urobilinogen Dipstick 0.2 mg/dL Urine Leukocyte Esterase Trace Urine RBC 3-5 /HPF Urine WBC 11-20 /HPF Urine Squamous Epithelial Cells Mod /LPF Urine Bacteria Few /HPF Urine Mucus Marked /LPF Current Medications Medications (Trade) Dose Ordered Sig/Corin Route PRN Reason Start Time Stop Time Status Last Admin Dose Admin Sodium Chloride 1,000 ml @ 1,000 mls/hr 1X ONCE IV 04/02/20 09:45 04/02/20 10:44 DC 04/02/20 10:03 Morphine Sulfate (Morphine Sulfate) 4 mg 1X ONCE IV 04/02/20 09:45 04/02/20 09:46 DC 04/02/20 10:04 Ketorolac Tromethamine (Toradol 15mg Vial) 15 mg 1X ONCE IVP 04/02/20 09:45 04/02/20 09:46 DC 04/02/20 10:04 Ondansetron HCl (Zofran) 4 mg 1X ONCE IVP 04/02/20 09:45 04/02/20 09:46 DC 04/02/20 10:03 Laboratory Tests Test 04/02/20 09:41 White Blood Count 7.1 x10^3/uL Red Blood Count 4.32 x10^6/uL Hemoglobin 13.8 g/dL Hematocrit 39.4 % Mean Corpuscular Volume 91 fL Mean Corpuscular Hemoglobin 32 pg Mean Corpuscular Hemoglobin Concent 35 g/dL Red Cell Distribution Width 13.9 % Platelet Count 233 x10^3/uL Neutrophils (%) (Auto) 67 % Lymphocytes (%) (Auto) 25 % Monocytes (%) (Auto) 5 % Eosinophils (%) (Auto) 3 % Basophils (%) (Auto) 1 % Neutrophils # (Auto) 4.7 x10^3/uL Lymphocytes # (Auto) 1.8 x10^3/uL Monocytes # (Auto) 0.3 x10^3/uL Eosinophils # (Auto) 0.2 x10^3/uL Basophils # (Auto) 0.1 x10^3/uL Sodium Level 137 mmol/L Potassium Level 3.4 mmol/L Chloride Level 102 mmol/L Carbon Dioxide Level 28 mmol/L Anion Gap 7 Blood Urea Nitrogen 17 mg/dL Creatinine 1.0 mg/dL Estimated GFR (Cockcroft-Gault) 58.7 BUN/Creatinine Ratio 17 Glucose Level 113 mg/dL Calcium Level 9.3 mg/dL Total Bilirubin 0.5 mg/dL Aspartate Amino Transf (AST/SGOT) 12 U/L Alanine Aminotransferase (ALT/SGPT) 21 U/L Alkaline Phosphatase 129 U/L Total Protein 7.3 g/dL Albumin 3.8 g/dL Albumin/Globulin Ratio 1.1 Lipase 60 U/L Current Medications Medications (Trade) Dose Ordered Sig/Corin Route PRN Reason Start Time Stop Time Status Last Admin Dose Admin Sodium Chloride 1,000 ml @ 1,000 mls/hr 1X ONCE IV 04/02/20 09:45 04/02/20 10:44 04/02/20 10:03 Morphine Sulfate (Morphine Sulfate) 4 mg 1X ONCE IV 04/02/20 09:45 04/02/20 09:46 DC 04/02/20 10:04 Ketorolac Tromethamine (Toradol 15mg Vial) 15 mg 1X ONCE IVP 04/02/20 09:45 04/02/20 09:46 DC 04/02/20 10:04 Ondansetron HCl (Zofran) 4 mg 1X ONCE IVP 04/02/20 09:45 04/02/20 09:46 DC 04/02/20 10:03 Vital Signs: Vital Signs Date Time Temp Pulse Resp B/P (MAP) Pulse Ox O2 Delivery O2 Flow Rate FiO2 04/02/20 10:04 16 99 Room Air 04/02/20 09:26 97.8 83 18 175/90 (118) 99 Room Air 97.8 EKG: EKG: EKG consistent with normal sinus rhythm. Ventricular rate of 78 bpm. Left axis noted. Intervals normal. No acute ischemic changes appreciated. Slight artifact noted in majority of leads. [] Radiology/Procedures: Radiology/Procedures: [facility] [address] [place] [address] IMAGING REPORT Signed PATIENT: ENRIQUE RUEDA ACCOUNT: [id number] : 1970 LOCATION: ER AGE: 50 SEX: F EXAM STATUS: PRE ER ORD. PHYSICIAN: LOUISE CORONADO DO REASON: Right flank pain since this am PROCEDURE: CT ABDOMEN PELVIS WO CONTRAST EXAM: CT Abdomen and Pelvis without IV contrast CLINICAL HISTORY: Right flank pain since this am COMPARISON: none TECHNIQUE: Helical CT of the abdomen and pelvis was performed without the administration of IV contrast. Axial, coronal and sagittal reformatted images were generated. ---PQRS compliance statement - One or more of the following individualized dose reduction techniques were utilized for this study: 1. Automated exposure control 2. Adjustment of the mA and/or kV according to patient size 3. Use of iterative reconstruction technique--- FINDINGS: Lack of intravenous contrast limits evaluation of solid organs, vasculature, and lymph nodes. Lower chest: A 5 mm lung nodule seen in the peripheral left lower lobe. Abdomen and pelvis: Liver and biliary system: Hepatic hypoattenuation, likely fatty liver. Liver is enlarged measuring approximately 20.4 centimeters in length. Calcified gallstones are seen within the gallbladder. No biliary dilatation. Spleen: Unremarkable Pancreas: Unremarkable Adrenal glands: Unremarkable Kidneys: 4 mm calculus is seen within the proximal right ureter resulting in moderate right hydronephrosis and proximal right hydroureter. Punctate nonobstructing right lower pole renal calculus. No left hydronephrosis or hydroureter. No left renal calculus. No focal renal lesion. Lymph nodes/retroperitoneum: No abdominal or pelvic lymphadenopathy. Vessels: Aorta is normal in caliber with intermittent atherosclerotic calcifications. Bowel/Peritoneal cavity: Appendix is normal. Moderate colonic stool content is seen. No small or large bowel dilatation. No bowel obstruction. No abdominal or pelvic ascites. Abdominal wall: Trace fat-containing periumbilical hernia Bladder: Unremarkable Bones: No aggressive osseous lesion is seen. IMPRESSION: 1. A 4 mm calculus within the proximal right ureter results in moderate right hydronephrosis and proximal right hydroureter. 2. Nonobstructing right lower pole renal calculus. 3. 5 mm peripheral left lower lobe lung nodule. In a patient at low risk for malignancy, no follow-up is necessary. In a high-risk patient, follow-up CT in 12 months is recommended. 4. Hepatomegaly and hepatic hypoattenuation, likely fatty liver. Electronically signed by: Konstantin Paz MD (04/02/2020 10:16 AM) [id number] DICTATED and SIGNED BY: KONSTANTIN PAZ MD DATE: 04/02/20 1016 [] Course & Med Decision Making: Course & Med Decision Making Pertinent Labs and Imaging studies reviewed. (See chart for details) [] Patient is a 50-year-old female who presents with chief complaint of acute onset right flank pain. CT imaging reveals a right sided 4 mm ureterolithiasis. Mild hydronephrosis noted. Kidney function normal. Urine without obvious evidence of infection. Furthermore she denies any dysuria or UTI symptoms. Patient's pain was well controlled in the emergency department. I do feel she is appropriate for outpatient management. She was given medication and supportive care measures at home. She will be referred to urologist for follow- up if needed. Instructed to follow-up with her primary care physician in the next 2 to 3 days. Return precautions discussed and understood. Stable for discharge home. Jacobo Disclaimer: Jacobo Disclaimer: This electronic medical record was generated, in whole or in part, using a voice recognition dictation system. Departure Departure Impression: Primary Impression: Ureterolithiasis Additional Impression: Lung nodule Disposition: 01 HOME, SELF-CARE Condition: STABLE Referrals: TREVOR LANDIN MD (PCP) Patient Instructions: Kidney Stones Additional Instructions: Dr. Angelo Gutierrez [address], [place] [address] Please follow-up your primary care physician in the next 2 to 3 days. Please follow-up with urology in the next week if symptoms continue. Scripts Tamsulosin Hcl (FLOMAX) 0.4 Mg Cap.er.24h 1 CAP PO QHS, #10 CAP 11 Refills Prov: LOUISE CORONADO DO 04/02/20 Ondansetron Hcl (ZOFRAN) 4 Mg Tablet 4 MG PO PRN TID PRN for NAUSEA, #15 nausea/vomiting Prov: LOUISE CORONADO DO 04/02/20 Ibuprofen (IBUPROFEN) 600 Mg Tablet 600 MG PO PRN Q6HRS PRN for PAIN, #20 TAB take with food or milk Prov: LOUISE CORONADO DO 04/02/20 Hydrocodone/Apap 5-325 (NORCO 5-325 TABLET) 1 Each Tablet 1-2 EACH PO PRN Q6HRS PRN for PAIN, #10 as needed for pain Prov: LOUISE CORONADO DO 04/02/20 Justicifation of Admission Dx: Justifications for Admission: Justification of Admission Dx: N/A LOUISE CORONADO DO Apr 02, 2020 09:35
[2020-04-02] MEDS ORDERED: IV NORMAL SALINE 1000ML BAG 1,000 ML IV ONE (09:45)
[2020-04-02] MEDS ORDERED: ONDANSETRON PF 4 MG/2 ML VIAL. IVP ONE (09:45)
[2020-04-02] MEDS ORDERED: KETOROLAC 15 MG/ML VIAL. IVP ONE (09:45)
[2020-04-02] MEDS ORDERED: MORPHINE SULFATE 4 MG/ML VIAL. IV ONE (09:45)
--- NOTE | 2020-04-02 09:50 | RAD ---
EXAM: AP View of the chest DATE: 04/02/2020 9:32 AM INDICATION: Shortness of breath COMPARISON: No Prior FINDINGS: The heart is not enlarged. Mediastinal and hilar contours are normal. No focal parenchymal airspace opacity. No pleural effusion or pneumothorax. IMPRESSION: 1. No radiographic evidence for acute cardiopulmonary process. Electronically signed by: Konstantin Hoang MD (04/02/2020 9:48 AM) [id number]
[2020-04-02 09:51] LABS: BASO # 0.1 x10^3/uL (0.0-0.2); BASO % 1 % (0-3); EOS # 0.2 x10^3/uL (0.0-0.7); EOS % 3 % (0-3); HEMATOCRIT 39.4 % (36.0-47.0); HEMOGLOBIN 13.8 g/dL (12.0-15.5); LYMPH # 1.8 x10^3/uL (1.0-4.8); LYMPH % 25 % (24-48); MEAN CORPUSCULAR HEMOGLOBIN 32 pg (25-35); MEAN CORPUSCULAR HGB CONC 35 g/dL (31-37); MEAN CORPUSCULAR VOLUME 91 fL (79-100); MONO # 0.3 x10^3/uL (0.0-1.1); MONO % 5 % (0-9); NEUT # 4.7 x10^3/uL (1.8-7.7); NEUT % 67 % (31-73); PLATELET COUNT 233 x10^3/uL (140-400); RED BLOOD COUNT 4.32 x10^6/uL (3.50-5.40); RED CELL DISTRIBUTION WIDTH 13.9 % (11.5-14.5); WHITE BLOOD COUNT 7.1 x10^3/uL (4.0-11.0)
[2020-04-02 10:00] LABS: CALCIUM 9.3 mg/dL (8.5-10.1); GFR 58.7; POTASSIUM 3.4 mmol/L (3.5-5.1)
[2020-04-02 10:06] LABS: ALBUMIN 3.8 g/dL (3.4-5.0); ALBUMIN/GLOBULIN RATIO 1.1 (1.0-1.7); TOTAL BILIRUBIN 0.5 mg/dL (0.2-1.0); TOTAL PROTEIN 7.3 g/dL (6.4-8.2)
--- NOTE | 2020-04-02 10:19 | RAD ---
EXAM: CT Abdomen and Pelvis without IV contrast CLINICAL HISTORY: Right flank pain since this am COMPARISON: none TECHNIQUE: Helical CT of the abdomen and pelvis was performed without the administration of IV contrast. Axial, coronal and sagittal reformatted images were generated. ---PQRS compliance statement - One or more of the following individualized dose reduction techniques were utilized for this study: 1. Automated exposure control 2. Adjustment of the mA and/or kV according to patient size 3. Use of iterative reconstruction technique--- FINDINGS: Lack of intravenous contrast limits evaluation of solid organs, vasculature, and lymph nodes. Lower chest: A 5 mm lung nodule seen in the peripheral left lower lobe. Abdomen and pelvis: Liver and biliary system: Hepatic hypoattenuation, likely fatty liver. Liver is enlarged measuring approximately 20.4 centimeters in length. Calcified gallstones are seen within the gallbladder. No biliary dilatation. Spleen: Unremarkable Pancreas: Unremarkable Adrenal glands: Unremarkable Kidneys: 4 mm calculus is seen within the proximal right ureter resulting in moderate right hydronephrosis and proximal right hydroureter. Punctate nonobstructing right lower pole renal calculus. No left hydronephrosis or hydroureter. No left renal calculus. No focal renal lesion. Lymph nodes/retroperitoneum: No abdominal or pelvic lymphadenopathy. Vessels: Aorta is normal in caliber with intermittent atherosclerotic calcifications. Bowel/Peritoneal cavity: Appendix is normal. Moderate colonic stool content is seen. No small or large bowel dilatation. No bowel obstruction. No abdominal or pelvic ascites. Abdominal wall: Trace fat-containing periumbilical hernia Bladder: Unremarkable Bones: No aggressive osseous lesion is seen. IMPRESSION: 1. A 4 mm calculus within the proximal right ureter results in moderate right hydronephrosis and proximal right hydroureter. 2. Nonobstructing right lower pole renal calculus. 3. 5 mm peripheral left lower lobe lung nodule. In a patient at low risk for malignancy, no follow-up is necessary. In a high-risk patient, follow-up CT in 12 months is recommended. 4. Hepatomegaly and hepatic hypoattenuation, likely fatty liver. Electronically signed by: Konstantin Hoang MD (04/02/2020 10:16 AM) [id number]
[2020-04-02] MEDS ORDERED: IBUP-1007 PO (10:29)
[2020-04-02] MEDS ORDERED: TAMS0.4C97 PO (10:29)
[2020-04-02] MEDS ORDERED: HYDR-3164 PO (10:29)
[2020-04-02] MEDS ORDERED: ONDA4TAB7 PO (10:29)
[2020-04-02 10:36] LABS: BILIRUBIN,URINE NEGATIVE (NEG); CLARITY,URINE CLEAR; COLOR,URINE YELLOW; NITRITE,URINE NEGATIVE (NEG); PROTEIN,URINE NEGATIVE (NEG-TRACE); UROBILINOGEN,URINE 0.2 mg/dL (0.2 mg/dL)
[2020-04-02 11:10] LABS: BACTERIA,URINE FEW /HPF (0-FEW); SQUAMOUS EPITHELIAL CELL,UR MOD /LPF
[2020-04-02 11:52] VITALS: BP 170/93
--- NOTE | 2020-04-04 03:16 | EKG ---
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
== END 2020-04-02 11:55 | disposition home or self-care (01) ==
LOC: ER 09:18
DX: N13.2 Hydronephrosis with renal and ureteral calculous obstruction (principal); R91.1 Solitary pulmonary nodule; R06.02 Shortness of breath; R10.33 Periumbilical pain; J45.909 Unspecified asthma, uncomplicated; F32.9 Major depressive disorder, single episode, unspecified; K21.9 Gastro-esophageal reflux disease without esophagitis; F20.9 Schizophrenia, unspecified; F17.200 Nicotine dependence, unspecified, uncomplicated; G89.29 Other chronic pain; Z90.710 Acquired absence of both cervix and uterus; Z98.890 Other specified postprocedural states; Z88.8 Allergy status to other drugs, medicaments and biological substances
CPT/HCPCS: 36415; 71045; 74176; 80053; 81001; 83690; 85025; 87086; 93005; 96361; 96374; 96375; 99285; J1885; J2270; J2405; J7030; 87077

== ENCOUNTER → 2020-04-19 | Outpatient (CLI) | payer OTHER ==
[2020-04-02 11:52] VITALS: BP 170/93
[~2020-04-19] MED LIST changes: +HYDR-3164 PO; +IBUP-1007 PO; +ONDA4TAB7 PO; +TAMS0.4C97 PO
--- NOTE | 2020-04-19 14:11 | KCIC ---
CT CHEST WO CONTRAST Indication: Lung nodule on recent CT, smoker for 33 years of 1 pack per day Technique: Noncontrast CT imaging was performed of the chest, multiplanar reconstruction images submitted. One or more of the following individualized dose reduction techniques were utilized for this examination: 1. Automated exposure control 2. Adjustment of the mA and/or kV according to patient size 3. Use of iterative reconstruction technique. Comparison: April 02, [address] Findings: There is 6 mm right middle lobe nodule image 35 series 2. There is 5 mm right middle lobe nodule image 33 series 2. There is a 4 to 5 mm noncalcified peripheral left lower lobe subpleural nodule image 54 series 2. There is a tiny 2 mm subpleural right lower lobe nodule image 35 series 2. There is a tiny 1 mm subpleural right lower lobe nodule image 46 series 2. There is 2 mm right lower lobe nodule image 48 series 2. There is 3 mm posterior left upper lobe nodule image 13 series 2. There is 2 mm left upper lobe nodule image 11 series 2. There is 1 to 2 mm left upper lobe nodule image 16 series 2. There is 2 to 3 mm subpleural left upper lobe nodule image 36. There is 3 mm subpleural left upper lobe nodule image 39 series 2. There is centrilobular emphysema with upper zone predominance. There is hepatic steatosis. There is 15 mm gallstone. IMPRESSION: 1. There are several pulmonary nodules, largest about 6 mm of the right middle lobe. 3-6 month follow-up is recommended as per revised Fleischner guidelines. 2. There is centrilobular emphysema with upper zone predominance. 3. There is cholelithiasis. 4. There is hepatic steatosis. Electronically signed by: Luis Eduardo Quick MD (04/19/2020 2:08 PM) [facility]
--- NOTE | 2020-04-19 14:37 | KCIC ---
Bilateral digital screening mammograms: Reason for examination: Routine screening. Comparison is made to previous studies dated back to 10/11/2015. Interpretation was made with the benefit of CAD. The skin and nipples show no abnormalities. No abnormal axillary lymph nodes are seen. The breast parenchyma shows scattered fibroglandular density. (Breast density: Category B.) There are no dominant masses, suspicious calcifications or architectural distortions. Impression: No evidence of malignancy. Recommend routine screening. BI-RADS Category 1: Negative. "Our facility is accredited by the [employer] Mammography Program." This patient's information has been entered into a reminder system for the patient to be notified with the results of her examination and a target date for the next mammogram. Electronically signed by: Sirena Seals MD (04/19/2020 2:34 PM) [id number]
== END ==
LOC: KCIC MAMMO 12:41
PROVIDERS: ATTEND Family Medicine
DX: Z12.31 Encounter for screening mammogram for malignant neoplasm of breast (principal); J43.2 Centrilobular emphysema; R91.8 Other nonspecific abnormal finding of lung field; K80.20 Calculus of gallbladder without cholecystitis without obstruction; K76.0 Fatty (change of) liver, not elsewhere classified; Z87.891 Personal history of nicotine dependence
CPT/HCPCS: 71250; 77067

== ENCOUNTER → 2020-05-10 | Outpatient (CLI) | payer OTHER ==
[~2020-05-10] MED LIST changes: +ACET325T9 PO; +ALBU2.5V8 INH; +ALPR0.5T6 PO; +BUSP30TA PO; +ERGO500027 PO; +ERYT250T14 PO; +FLUT1BLS9 IH; +FLUT9.9S NS; +LORA10TA3 PO; +MELO15TA23 PO; +POLY17PO29 PO; +TOPI100T42 PO; +TOPI200T25 PO
--- NOTE | 2020-05-10 10:25 | KCIC ---
Right upper quadrant abdominal ultrasound without comparison for cholecystitis. TECHNIQUE AND FINDINGS: Real-time grayscale and color Doppler evaluation of the right upper quadrant abdominal organs is performed. Visualized portions the pancreas are grossly unremarkable. The tail was not identified. The IVC is patent. There is diffuse fatty infiltration of an enlarged liver which measures 17.3 cm. No focal hepatic parenchymal abnormalities are identified. No intra or extrahepatic biliary ductal dilatation is seen. Portal vein is patent and hepatopedal. The right kidney measures 10.4 x 4.7 x 4.4 cm is normal in appearance with normal color flow and no hydronephrosis. The gallbladder is notable for multiple shadowing gallstones. No gallbladder wall thickening or pericholecystic fluid. No sonographic Page sign was elicited. Common bile duct measures 3 mm in diameter. IMPRESSION: 1. Cholelithiasis without sonographic evidence of acute cholecystitis. 2. Hepatomegaly and hepatic steatosis. Electronically signed by: Sy Jaramillo MD (05/10/2020 10:22 AM) [id number]
== END ==
LOC: KCIC US 09:39
PROVIDERS: ATTEND Family Medicine
DX: K80.20 Calculus of gallbladder without cholecystitis without obstruction (principal); K76.0 Fatty (change of) liver, not elsewhere classified
CPT/HCPCS: 76705

== ENCOUNTER → 2020-05-15 | Outpatient (CLI) | payer OTHER ==
[~2020-05-15] MED LIST changes: +OXYC1TAB15 PO
== END ==
LOC: LAB 13:51
PROVIDERS: ATTEND Surgery
DX: Z01.812 Encounter for preprocedural laboratory examination (principal); K81.1 Chronic cholecystitis; Z20.828 Contact with and (suspected) exposure to other viral communicable diseases
CPT/HCPCS: U0003

== ENCOUNTER 2020-05-18 08:39 | Day surgery (SDC) | payer OTHER ==
[~2020-05-18] VITALS: Ht 177.8 cm; Wt 67.0 kg
[~2020-05-18 08:39] MED LIST changes: +ACETAMINOPHEN 500 MG TABLET PO PRN; +BUPIVACAINE-EPI 0.25%-1:200000 MPF 30 ML VIAL. INJ PRN; +HYDROmorphone 2 MG/ML VIAL IV PRN; +IV RINGERS,LACTATED 1000ML 1,000 ML IV SCH; -OXYC1TAB15 PO; +PROCHLORPERAZINE 10 MG/2 ML VIAL. IV PRN; +ceFAZolin SODIUM IV Push 1 GM VIAL. IVP PRN; +fentaNYL PF VIAL 100 MCG/2 ML VIAL IV PRN
[2020-05-18] MEDS ORDERED: FLUT1BLS9 IH (08:55)
[2020-05-18] MEDS ORDERED: fentaNYL PF VIAL 250 MCG/5 ML VIAL ONE (09:52)
[2020-05-18] MEDS ORDERED: ROCURONIUM 50 MG/5 ML VIAL. ONE (09:52)
[2020-05-18] MEDS ORDERED: ONDANSETRON PF 4 MG/2 ML VIAL. ONE (09:57)
[2020-05-18] MEDS ORDERED: SEVOFLURANE 61 TO 120 MINUTES. IH ONE (09:57)
[2020-05-18] MEDS ORDERED: PROPOFOL 10 MG/ML (20ML) VIAL. IV ONE (09:57)
[2020-05-18] MEDS ORDERED: LIDOCAINE 2% PF 5 ML VIAL. ONE (09:57)
[2020-05-18] MEDS ORDERED: DEXAMETHASONE SOD PHOS 4 MG/ML VIAL ONE (09:57)
[2020-05-18] MEDS ORDERED: IOHEXOL 300 MG/ML 50 ML VIAL. ONE (10:05)
[2020-05-18] MEDS ORDERED: SURGICEL HEMOSTAT 4X8 EACH. ONE (10:05)
[2020-05-18] MEDS ORDERED: oxyCODONE/APAP 5/325 1 TAB TABLET PO ONE ×2 (11:30→12:30)
[2020-05-18] MEDS ORDERED: GLYCOPYRROLATE 1 MG/5 ML VIAL. ONE (11:33)
[2020-05-18] MEDS ORDERED: NEOSTIGMINE METHYLSULFATE 5 MG/5 ML SYRINGE. ONE (11:33)
--- NOTE | 2020-05-18 11:56 | PDOC4 ---
Operative Note Operative Note Date: May 18, 2020 at 1154 Preoperative diagnosis: Chronic cholecystitis cholelithiasis Postoperative diagnosis: Same Procedure: Laparoscopic cholecystectomy Surgeon: Jose Specimen: Gallbladder Dictation: Patient is a 50-year-old female with right upper quadrant abdominal pain ultrasound showing gallstones with thickened gallbladder wall. Procedure of laparoscopic cholecystectomy was explained to the patient detail risk benefits were also discussed including bleeding infection injury to intra- abdominal contents possibly necessitating further or open operations alt ernatives to this procedure also discussed with the patient who seemed to understand and gave both verbal and written consent to have the procedure performed. Patient was taken to the operating room placed in supine position general anesthesia was initiated once patient was sleeping intubated her abdomen was prepped and draped in usual sterile fashion using ChloraPrep. Area at the umbilicus was injected with quarter percent Marcaine with epinephrine incision was made 11 blade scalpel and a varies needle was placed within the abdomen creating pneumoperitoneum once this was complete 11 mm port was placed and a 5 mm camera was placed within the abdomen which was inspected no other abnormalities were noted. 5 mm port was placed in the epigastrium a 5 mm port was placed in the right midabdomen and a 5 mm port was placed in the right lateral abdomen. The dome of the gallbladder was grasped retracted cephalad the infundibulum of the gallbladder is grasped retracted laterally exposing the triangle adherent tissues of the triangle were taken down with blunt dissection exposing the cystic duct and cystic artery both were doubly clipped and transected the gallbladder was taken off the liver with hook electrocautery placed in Endo Catch bag removed the umbilicus the right upper quadrant was irrigated and suctioned dry hemostasis was deemed to be appropriate the pneumoperitoneum was reduced all ports were removed the fascial defect at the umbilicus was closed with a figure of 8 suture 0 Vicryl skin was reapproximated for subcuticular Monocryl Mastisol Steri-Strips and island dressings were applied. Patient was awakened and extubated in the operating room taken to recovery in stable condition all sponge instrument needle counts listed as correct estimated blood loss 10 mL MARTHA PEACOCK MD May 18, 2020 11:56
--- NOTE | 2020-05-18 11:58 | DISCH ---
DISCHARGE INSTRUCTIONS Condition on Discharge Condition on Discharge: Stable Activity After Discharge Activity Instructions for Disc: Avoid exertion Other activity instructions: No lifting more than 20 pounds for 2 weeks Diet after Discharge Diet after Discharge: Low Fat Wound Incision Care Other wound/incision instructi: May shower in 24 hours Contacting the after DC Call your doctor for: If your condition worsens Follow-Up Follow up with: Dr. Peacock in 2 weeks MARTHA PEACOCK MD May 18, 2020 11:58
[2020-05-18] MEDS ORDERED: fentaNYL PF VIAL 100 MCG/2 ML VIAL ONE (12:04)
[2020-05-18] MEDS ORDERED: PROCHLORPERAZINE 10 MG/2 ML VIAL. ONE (12:05)
[2020-05-18] MEDS ORDERED: MORPHINE SULFATE 2 MG/ML VIAL. ONE (12:25)
[2020-05-18] MEDS: fentaNYL PF VIAL 100 MCG/2 ML VIAL IV PRN ×2 (12:29→12:51)
[2020-05-18 12:58] VITALS: BP 158/79
[2020-05-18] MEDS: MORPHINE SULFATE 2 MG/ML VIAL. IV PRN ×2 (13:02→13:21)
[2020-05-18] MEDS ORDERED: OXYC1TAB15 PO (13:13)
== END 2020-05-18 13:51 | disposition home or self-care (01) ==
LOC: SURG 08:39
PROVIDERS: ATTEND Surgery
DX: K80.10 Calculus of gallbladder with chronic cholecystitis without obstruction (principal); I10 Essential (primary) hypertension; E78.00 Pure hypercholesterolemia, unspecified; J44.9 Chronic obstructive pulmonary disease, unspecified; K21.9 Gastro-esophageal reflux disease without esophagitis; M19.90 Unspecified osteoarthritis, unspecified site; F41.9 Anxiety disorder, unspecified; F32.9 Major depressive disorder, single episode, unspecified; F17.210 Nicotine dependence, cigarettes, uncomplicated; Z90.710 Acquired absence of both cervix and uterus; Z98.890 Other specified postprocedural states; Z98.51 Tubal ligation status; Z79.899 Other long term (current) drug therapy; Z88.8 Allergy status to other drugs, medicaments and biological substances
CPT/HCPCS: 47562; A7015; J0690; J0780; J1100; J2270; J2405; J2704; J2710; J3010; J3490; J7030; J7120; Q9967

== ENCOUNTER → 2020-06-05 | Outpatient (CLI) | payer OTHER ==
[2020-05-18 12:58] VITALS: BP 158/79
[~2020-06-05] MED LIST changes: -ACETAMINOPHEN 500 MG TABLET PO PRN; -BUPIVACAINE-EPI 0.25%-1:200000 MPF 30 ML VIAL. INJ PRN; -HYDROmorphone 2 MG/ML VIAL IV PRN; -IV RINGERS,LACTATED 1000ML 1,000 ML IV SCH; +OXYC1TAB15 PO; -PROCHLORPERAZINE 10 MG/2 ML VIAL. IV PRN; -ceFAZolin SODIUM IV Push 1 GM VIAL. IVP PRN; -fentaNYL PF VIAL 100 MCG/2 ML VIAL IV PRN
[2020-06-05 14:20] LABS: ALBUMIN 3.9 g/dL (3.4-5.0); DIRECT BILIRUBIN 0.2 mg/dL (0.0-0.2); TOTAL BILIRUBIN 0.4 mg/dL (0.2-1.0); TOTAL PROTEIN 8.2 g/dL (6.4-8.2)
== END ==
LOC: LAB 13:28
PROVIDERS: ATTEND Nurse Practitioner Family
DX: R19.7 Diarrhea, unspecified (principal)
CPT/HCPCS: 36415; 80076

== ENCOUNTER → 2020-11-29 | Outpatient (CLI) | payer OTHER ==
--- NOTE | 2020-11-29 10:17 | RAD ---
EXAM: Chest CT without intravenous contrast. HISTORY: Pulmonary nodule. TECHNIQUE: Computed tomographic images of the chest were obtained without contrast. Multiplanar refor matting was performed. *One or more of the following individualized dose reduction techniques were utilized for this examina tion: 1. Automated exposure control. 2. Adjustment of the mA and/or kV according to patient size. 3. Use of iterative reconstruction technique. COMPARISON: 04/19/2020. FINDINGS: There are multiple noncalcified pulmonary nodules. For reference purposes, the largest nodu les include a 6 mm nodule within the right middle lobe along the right minor fissure (series 8, image 172), a 6 mm nodule within the posterior left upper lobe (series 8, image 60), a 5 mm nodule within the anterior left upper lobe (series 8, image 184), a 6 mm nodule within the posterior left lower lob e (series 8, image 254), a 5 mm nodule within the left upper lobe (series 8, image 112), a 4 mm nodul e within the posterior right lower lobe (series 8, image 165). There are additional smaller similar-a ppearing nodules, the majority of which are pleural-based. There is emphysema. There is no pneumothorax or pleural effusion. There is no infiltrate. There is bi lateral posterior dependent atelectasis. The heart is normal in size. The thoracic aorta is normal in caliber. There are nonspecific mediastinal and hilar lymph nodes. There is hepatomegaly and hepatic steatosis with focal fatty infiltration along the falciform ligament. There is no acute finding invol ving the upper abdomen. There is no suspicious osseous lesion. IMPRESSION: 1. Multiple bilateral pulmonary nodules measuring up to 6 mm, the majority of which are pleural-based . These are stable compared to the prior exam, allowing for differences in slice position and measure ment technique. Follow up according to Fleischner Society criteria, listed below. 2. Pulmonary emphysema. 3. Hepatomegaly and hepatic steatosis. Fleischner Society recommendations (Radiology 2017): Multiple solid nodules <6 mm - low-risk patient: no routine follow-up required - high-risk patient: optional CT at 12 months Multiple solid nodules >6 mm - low-risk patient: CT at 3-6 months, then consider CT at 18-24 months - high risk patient: CT at 3-6 months, then if persistent CT at 18-24 months Electronically signed by: Priya Cxo MD (11/29/2020 10:14 AM) [id number]
== END ==
LOC: CT 09:10
PROVIDERS: ATTEND Family Medicine
DX: R91.1 Solitary pulmonary nodule (principal); J98.11 Atelectasis; J43.9 Emphysema, unspecified; K76.0 Fatty (change of) liver, not elsewhere classified; R16.0 Hepatomegaly, not elsewhere classified
CPT/HCPCS: 71250

== ENCOUNTER → 2021-02-28 | Outpatient (CLI) | payer OTHER ==
[~2021-02-28] MED LIST changes: -ERGO500027 PO; +ERGO500089 PO
--- NOTE | 2021-02-28 10:12 | PDOC ---
Progress Note - Pain Clinic Date of Service: DOS: DATE: 02/28/21 TIME: 10:07 Diagnosis: Dx: Cervical radiculopathy with cervical degenerative disc disease Lumbar radiculopathy with lumbar degenerative disc disease History or Present Illness: HPI: 51-year-old female returns for follow-up status post cervical epidural steroid patient last seen January 10, 2020. Patient reports that she did much better after the injection approximate 100% improvement for several months patient reports her main complaint now is low back and left lower extremity pain. Patient reports some pain on the right side as well but her main complaint is pain in the low back worse with walking standing changing positions getting up stretching walking standing changing positions and has been waking her from sleep at night about every 4-5 hours patient reports pain is sharp and tight in the back shooting in the right and left side and into the left lower extremity more in the posterior gluteus posterior lateral thigh anterior thigh medial thigh medial lower leg also some pain in the right knee with walking involve her weight on the right side patient reports her pain a 9 on scale 10 is worse over the past week 7 on average/and is a 4 today. Patient also reports pain the base of neck and right upper extremity with pain radiating into the right arm and hand with numbness and tingling as well as in the right shoulder. Patient reports her low back pain however is the most significant at this time. Patient reports incontinence no motor or sensory deficits but significant fatigability of the left lower extremity as well as the right upper extremity. Patient has had multiple physical therapy treatments in the past and is doing the stretching and strength exercises with the lower extremities as well as upper extremities as previously. Patient also taking ibuprofen which is only decreasing the pain by about 10%. Physical Exam: VS: Blood pressure is 136/88 pulse 83 respirations 18 temperature 99.2 F height 10 inches weight is 147 pounds. PE: PHYSICAL EXAMINATION: GENERAL: The patient is awake, alert, oriented, appropriate, very pleasant in demeanor HEENT: Shows normocephalic, atraumatic. Extraocular movements are intact and symmetrical. Oral cavity: Mucous membranes moist and pink. Dentition is intact. NECK: Shows anterior throat supple without palpable lymphadenopathy noted. Swallow reflex symmetrical. CHEST: Shows normal on inspection. Breath sounds are clear bilaterally, no rales rhonchi wheezes auscultated. HEART: Shows S1, S2 clear. No murmurs auscultated. ABDOMEN: Soft, nontender, nondistended, obese. No palpable organomegaly is noted. No rebound or guarding demonstrated. BACK: Shows spine grossly in the midline. Normal-appearing cervical lordotic cu rvature. There is slightly increased thoracic kyphosis, some flattening of the lumbar lordotic curvature. Lumbar paraspinous muscles show symmetrical on inspection, on palpation shows some moderate tenderness diffusely throughout the upper, middle and lower distribution of the paraspinous muscles without specific trigger points, without radiation of pain. The patient has good rotational motion of the lumbar spine, both laterally as well as extension and flexion without significant difficulty. EXTREMITIES: Lower extremities show deep tendon reflexes 2+ in the patellar and tendo calcaneus tendons. Motor exam is 5 on a scale of 5 with right dorsiflexion, extension, quadriceps and hamstring flexion and 4/5 on the left. Peripheral pulses are 1+ posterior tibial. No peripheral edema is noted bilaterally. Lower extremities are warm and dry to touch, equal in color and appearance. Upper extremity show deep tendon reflexes 2+ in the bicep tricep tendons, motor exam strong with range feeder strength rated 5 out of 5 as is bicep and tricep flexion. Shoulder shrug strong and intact with some moderate tenderness on the right but no loss of strength on resistance. SKIN: Shows warm and dry, good turgor. No edema. No sores, rashes or bruising throughout. Procedure: Procedure: Options were discussed with the patient. Patient's old chart was reviewed as her current medication regimen updated current review of systems updated today as well. We will preauthorize patient for a lumbar epidural steroid injection as she has significant radicular pain in the left lower extremity following an L4-5 dermatomal distribution. She has been doing physical therapy strengthening stretching exercises as she has had multiple therapy treatments in the past and is still doing the exercises from those. Patient still taking oral analgesics mostly ibuprofen with only moderate decrease in pain. Once approved, patient will return for lumbar epidural steroid injection translaminar approach at the L4-5 level with fluoroscopic guidance. In the meantime, patient will continue with oral analgesics as well as strengthening stretching exercises as currently. Medication Injected: Med Injected: None Condition at Discharge: Condition at Discharge: Condition at discharge is stable. AB KARIMI MD Feb 28, 2021 10:12
== END ==
LOC: PNCL 09:22
PROVIDERS: ATTEND Anesthesiology
DX: M51.16 Intervertebral disc disorders with radiculopathy, lumbar region (principal); M50.10 Cervical disc disorder with radiculopathy, unspecified cervical region
CPT/HCPCS: 99212; G0463

== ENCOUNTER → 2021-03-15 | Outpatient (CLI) | payer OTHER ==
[~2021-03-15] MED LIST changes: +IOHEXOL 180 MG/ML 10 ML VIAL. ONE; +methylPREDNISolone ACETATE 80 MG/ML VIAL. ONE
--- NOTE | 2021-03-15 10:40 | PDOC4 ---
Procedure Note: ICD 10 Code: ICD 10 Code: M54.16 M51.36 Procedure Note: Patient was consented for lumbar epidural steroid injection with fluoroscopic guidance. Risks were discussed including but not limited to: Bleeding, infection, possibility of epidural hematoma and subsequent neurological compromise, dural puncture, headaches, spinal cord and/or nerve damage, side effects of steroid medication, and poor results regarding pain control. Patient understands and wished to proceed. Procedure is lumbar epidural steroid injection under local anesthetic using sterile prep and drape at the L4-5 level using C-arm fluoroscopic guidance in both AP and lateral views medications injected is 120 mg Depo-Medrol +10mL preservative-free normal saline and 2 mL contrast- condition at discharge is stable patient tolerated procedure well had no complications. AB KARIMI MD Mar 15, 2021 10:40
--- NOTE | 2021-03-15 10:40 | PDOC ---
Progress Note - Pain Clinic Date of Service: DOS: DATE: 03/15/21 TIME: 10:37 Diagnosis: Dx: Cervical radiculopathy with cervical degenerative disc disease Lumbar radiculopathy with lumbar degenerative disc disease History or Present Illness: HPI: 51-year-old female returns with history of pain low back and right lower extremity posterior gluteus posterior lateral thigh lateral anterior thigh anteromedial thigh medial lower leg and foot on the right side she reports pain across the low back as well also pain now in the base of the neck and the right upper extremity which is becoming more noticeable since her last visit and reports new pain of the right arm with sensation of numbness in her hand and has been dropping objects right hand patient reports her chief complaint however is low back and the right leg patient reports is tingling burning cramping stabbing can be aching and tight in the leg shooting in the leg radiating in the leg as well as tight and aching in the back patient reports is worse with walking standing changing positions better with sitting or laying down but is waking her from sleep about every 4 hours as is her right upper extremity. Patient rates her pain a 7 on scale 10 is worse with past week 6 on average 5-6 at its least is a 7 today. Patient reports no new motor or sensory deficits no bowel or bladder incontinence. Physical Exam: VS: Blood pressure is 135/91 pulse 80 respirations 18, temperature is 98.6 F height is 5 feet 10 inches weight is 149 pounds PE: PHYSICAL EXAMINATION: GENERAL: The patient is awake, alert, oriented, appropriate, very pleasant demeanor HEENT: Shows normocephalic, atraumatic. Extraocular movements are intact and symmetrical. Oral cavity: Mucous membranes moist and pink. Dentition is intact. NECK: Shows anterior throat supple without palpable lymphadenopathy noted. Swallow reflex symmetrical. CHEST: Shows normal on inspection. Breath sounds are clear bilaterally, distant no rales or rhonchi auscultated. HEART: Shows S1, S2 clear. No murmurs auscultated. ABDOMEN: Soft, nontender, nondistended. No palpable organomegaly is noted. No rebound or guarding demonstrated. BACK: Shows spine grossly in the midline. Normal-appearing cervical lordotic curvature. Cervical paraspinous muscles show symmetrical inspection, on palpation some moderate tenderness diffusely in the inferior aspect the cervical paraspinous muscle slightly more the right than left also into the superior medial trapezius on the right. No trigger points identified no atrophy hypertrophy or radiation. Patient has good rotation motion cervical spine both laterally as well as extension and flexion without significant limitation. There is slightly increased thoracic kyphosis, some minor flattening of the lumbar lordotic curvature. Lumbar paraspinous muscles show symmetrical on inspection, on palpation shows some moderate tenderness diffusely throughout the upper, middle and lower distribution of the paraspinous muscles without specific trigger points, without radiation of pain. The patient has good rotational motion of the lumbar spine, both laterally as well as extension and flexion w ithout significant difficulty. No tenderness over the spinous processes, sacrum or sacroiliac regions. EXTREMITIES: Lower extremities show deep tendon reflexes 2 in the patellar and tendo calcaneus tendons. Motor exam is 4 on a scale of 5 with right dors iflexion, extension, quadriceps and hamstring flexion and 5/5 on the left. Peripheral pulses are 1+ posterior tibial. No peripheral edema is noted bilaterally. Lower extremities are warm and dry to touch, equal in color and appearance. Upper extremity show deep tendon reflexes 2+ in the bicep tricep tendons, motor exam and strong with 5 out of 5 dust mixer strength bicep and tricep f lexion bilaterally. SKIN: Shows warm and dry, good turgor. No edema. No sores, rashes or bruising throughout. Procedure: Procedure: Options were discussed with the patient. Patient chart was reviewed as her current medication regimen updated current review of systems updated today as well. We will proceed with a lumbar epidural steroid injection today with fluoroscopic guidance. Risks were discussed including but not limited to: Bleeding, infection, possibility of epidural hematoma and subsequent neurological compromise, dural puncture, headaches, spinal cord and/or nerve damage, side effects of steroid medication, and poor results regarding pain control. Patient understands and wished to proceed. Patient will return to clinic in approximate 2 weeks for follow-up, was counseled as return appointment, activity level, and side effects to be aware of. Medication Injected: Med Injected: Procedure is lumbar epidural steroid injection under local anesthetic using sterile prep and drape at the L4-5 level using C-arm fluoroscopic guidance in both AP and lateral views medications injected is 120 mg Depo-Medrol +10mL preservative-free normal saline and 2 mL contrast- condition at discharge is stable patient tolerated procedure well had no complications. Condition at Discharge: Condition at Discharge: Condition at discharge is stable, pain tolerated the procedure well and had no complications. AB KARIMI MD Mar 15, 2021 10:40
== END | disposition home or self-care (01) ==
LOC: PNCL 09:29
PROVIDERS: ATTEND Anesthesiology
DX: M51.16 Intervertebral disc disorders with radiculopathy, lumbar region (principal); M50.10 Cervical disc disorder with radiculopathy, unspecified cervical region; I10 Essential (primary) hypertension; E78.00 Pure hypercholesterolemia, unspecified; J44.9 Chronic obstructive pulmonary disease, unspecified; K21.9 Gastro-esophageal reflux disease without esophagitis; F41.9 Anxiety disorder, unspecified; F32.9 Major depressive disorder, single episode, unspecified; M19.90 Unspecified osteoarthritis, unspecified site; F17.210 Nicotine dependence, cigarettes, uncomplicated; Z90.710 Acquired absence of both cervix and uterus; Z98.51 Tubal ligation status; Z98.890 Other specified postprocedural states; Z79.899 Other long term (current) drug therapy; Z88.8 Allergy status to other drugs, medicaments and biological substances
CPT/HCPCS: 62323; J1040; Q9965

== ENCOUNTER → 2021-03-29 | Outpatient (CLI) | payer OTHER ==
[~2021-03-29] MED LIST changes: -IOHEXOL 180 MG/ML 10 ML VIAL. ONE; -methylPREDNISolone ACETATE 80 MG/ML VIAL. ONE
--- NOTE | 2021-03-29 09:48 | PDOC ---
Progress Note - Pain Clinic Date of Service: DOS: DATE: 03/29/21 TIME: 09:43 Diagnosis: Dx: Cervical radiculopathy with cervical degenerative disease Lumbar radiculopathy degenerative disc disease History or Present Illness: HPI: 51-year-old female returns for follow-up status post lumbar epidural steroid injection x1. Patient reports about 90% improvement in the low back and right lower extremity pain. Patient reports he is increasing activity with greater ease and comfort travel with greater ease doing walking distances household activities work activities greater ease and comfort as well as sleeping better at night. Patient's chief complaint today however is neck and right upper extremity pain patient reports a pulling sensation that is aching and tight and shooting tingling and a cold sensation in the entire right arm which also has cramping involved in the forearm. Patient reports no injury or accident but her right arm is significantly painful with radiating pain base the neck and shoulder upper arm forearm into the hand involving all the fingers patient rates as a 7 on scale 10 is worse over the past week 6 on average for its least is a 6 today patient describes it as shooting and tight as well in the neck. Patient doing stretching and strengthening exercises as she has learned from previous physical therapy sessions as well as taking [id number] ibuprofen which helps but about 20 to 30%. Again well patient's back and legs doing much better to significant pain now in the base the neck right shoulder right upper extremity in a radicular fashion. Physical Exam: VS: Blood pressure is 125/86 pulse 81 respirations are 16 temperature is 98.8 was Fahrenheit height 5 feet 10 inches weight is 147 pounds PE: PHYSICAL EXAMINATION: GENERAL: The patient is awake, alert, oriented, appropriate, very pleasant in demeanor HEENT: Shows normocephalic, atraumatic. Extraocular movements are intact and symmetrical. Oral cavity: Mucous membranes moist and pink. Dentition is intact. NECK: Shows anterior throat supple without palpable lymphadenopathy noted. Swallow reflex symmetrical. CHEST: Shows normal on inspection. Breath sounds are clear bilaterally, distant no rales rhonchi wheezes auscultated. HEART: Shows S1, S2 clear. No murmurs auscultated. ABDOMEN: Soft, nontender, nondistended. No palpable organomegaly is noted. BACK: Shows spine grossly in the midline. Normal-appearing cervical lordotic curvature. Cervical paraspinous muscles show symmetrical inspection on pal pation some moderate tenderness diffusely more on the right than the left in the inferior aspect the cervical paraspinous muscle as well as into the superior medial trapezius without radiation or trigger points. Patient shows good rotation motion cervical spine both laterally greater than 45 degrees right and left as well as full extension full forward flexion without significant increase in pain. There is slightly increased thoracic kyphosis, some minor flattening of the lumbar lordotic curvature. Lumbar paraspinous muscles show symmetrical on inspection, on palpation shows some moderate tenderness diffusely throughout the upper, middle and lower distribution of the paraspinous muscles without specific trigger points, without radiation of pain. The patient has good rotational motion of the lumbar spine, both laterally as well as extension and flexion without significant difficulty. EXTREMITIES: Lower extremities show deep tendon reflexes deep in the patellar and tendo calcaneus tendons. Motor exam is 4 on a scale of 5 with right dorsiflexion, extension, quadriceps and hamstring flexion and 5/5 on the left. Peripheral pulses are 1+ posterior tibial. No peripheral edema is noted bilaterally. Lower extremities are warm and dry to touch, equal in color and appearance. Upper extremity show deep tendon reflexes 2+ in the bicep tricep tendons motor exam is grossly 4 to scale 5 with right software tester strength bicep tricep flexion 5 out of 5 on the left. Peripheral pulses are 2+ radial, no peripheral edema is noted bilaterally. Shoulder shrug is strong and intact without loss of strength on resistance but with some moderate pain with right-sided resistance. SKIN: Shows warm and dry, good turgor. No edema. No sores, rashes or bruising throughout. Procedure: Procedure: Options discussed with patient. Patient chart reviews her current medication regimen updated current review of systems updated today as well. Patient has significant radicular pain in the right upper extremity following a C6-7 dermatomal distribution. We will wait for preauthorization with patient's insurance provider and plan on a translaminar approach C6-7 level cervical epidural steroid injection with fluoroscopic guidance once approved. In the meantime, patient will continue with oral analgesics as currently as well as stretching strengthening exercises as currently. Medication Injected: Med Injected: None Condition at Discharge: Condition at Discharge: Condition at discharge is stable. AB KARIMI MD Mar 29, 2021 09:48
== END | disposition home or self-care (01) ==
LOC: PNCL 09:09
PROVIDERS: ATTEND Anesthesiology
DX: M50.10 Cervical disc disorder with radiculopathy, unspecified cervical region (principal); M51.16 Intervertebral disc disorders with radiculopathy, lumbar region; I10 Essential (primary) hypertension; E78.00 Pure hypercholesterolemia, unspecified; J44.9 Chronic obstructive pulmonary disease, unspecified; K21.9 Gastro-esophageal reflux disease without esophagitis; M19.90 Unspecified osteoarthritis, unspecified site; F41.9 Anxiety disorder, unspecified; F32.9 Major depressive disorder, single episode, unspecified; F17.210 Nicotine dependence, cigarettes, uncomplicated; Z90.710 Acquired absence of both cervix and uterus; Z98.51 Tubal ligation status; Z98.890 Other specified postprocedural states; Z79.899 Other long term (current) drug therapy; Z88.8 Allergy status to other drugs, medicaments and biological substances
CPT/HCPCS: 99212; G0463

== ENCOUNTER → 2021-04-24 | Outpatient (CLI) | payer OTHER ==
[~2021-04-24] MED LIST changes: +ARIP5TAB13 PO
--- NOTE | 2021-04-24 10:52 | NUR ---
Patient called states her insurance needs her to have a new cervical MRI for her to be approved for a BRAD. Patient states her arm is more stiff and lifting is a problem and her arm pain is worse. States she is having constipation discuses increasing fluids and miralax patient verbalized understanding meds updated in the computer patient has started abilfy since last appointment. name and date of verified with patient. will obtain auth for mri and schedule for patient call transferred to Dr Osman.
--- NOTE | 2021-04-24 13:13 | PDOC ---
Progress Note - Pain Clinic Date of Service: DOS: DATE: 04/24/21 TIME: 13:11 Diagnosis: Dx: Cervical radiculopathy with cervical degenerative disc disease History or Present Illness: HPI: Telemedicine visits with patient today with identity verified with date of and full name, total time spent 12 minutes. Patient discussing significant increase in fatigability in the right upper extremity as well as pain in the base the neck and right shoulder and radicular fashion we had previously discussed cervical epidural steroid injection and MRI scan but needs approval for the MRI scan with increased weakness in the right arm radicular pain following a C6-7 dermatomal distribution we will request MRI scan of the cervical spine to better differentiate in etiology in the cervical distribution for the clinical cervical radiculopathy in the right arm and hand. Patient reports it is painful with coming more difficult to lift items do daily activities and is disturbing her from sleep frequently throughout the night as well. Physical Exam: PE: AB KARIMI MD Apr 24, 2021 13:13
== END | disposition home or self-care (01) ==
LOC: PNCL 10:45
PROVIDERS: ATTEND Anesthesiology
DX: M50.10 Cervical disc disorder with radiculopathy, unspecified cervical region (principal); I10 Essential (primary) hypertension; E78.00 Pure hypercholesterolemia, unspecified; J44.9 Chronic obstructive pulmonary disease, unspecified; K21.9 Gastro-esophageal reflux disease without esophagitis; M19.90 Unspecified osteoarthritis, unspecified site; F41.9 Anxiety disorder, unspecified; F32.9 Major depressive disorder, single episode, unspecified; Z90.710 Acquired absence of both cervix and uterus; Z98.51 Tubal ligation status; Z98.890 Other specified postprocedural states; Z79.899 Other long term (current) drug therapy; Z88.8 Allergy status to other drugs, medicaments and biological substances
CPT/HCPCS: 99212; G0463

== ENCOUNTER → 2021-04-26 | Outpatient (CLI) | payer OTHER ==
--- NOTE | 2021-04-26 15:57 | KCIC ---
MR CERVICAL SPINE WO History:Reason: RIGHT CERVICAL RADICULOPATHY / Spl. Instructions: / History: Right sided neck apin w ith LROM in right arm for several months. Technique: Multiplanar, multi sequential noncontrast MR imaging was performed of the cervical spine. Comparison: February 09, 2018 Findings: Several sequences are motion degraded. Normal vertebral body height and alignment. No fracture. No pathologic signal abnormality within the cervical spinal cord. C2-C3: No canal narrowing. Left uncovertebral hypertrophy. Mild left neuroforaminal narrowing. C3-C4: Posterior disc osteophyte complex. Mild canal narrowing. Uncovertebral and facet arthropathy. Moderate to severe right and mild left neuroforaminal narrowing, similar compared to prior. C4-C5: Small disc bulge. No canal narrowing. Uncovertebral and facet arthropathy. Moderate right and mild left neuroforaminal narrowing, unchanged. C5-C6: Central disc protrusion. Slight cord flattening. No canal narrowing. Uncovertebral and facet arthropathy. Moderate left and mild right neuroforaminal narrowing, unchanged. C6-C7: Disc extrusion on the right extending superiorly, slightly decreased compared to prior.. No canal narrowing. Uncovertebral and facet arthropathy. Persistent moderate to severe right neuroforami nal narrowing. Mild left neuroforaminal narrowing. C7-T1: No canal narrowing. Left uncovertebral bilateral facet arthropathy. Mild left neuroforaminal narrowing, unchanged. Impression: 1. Multilevel cervical spondylosis. 2. Slightly decreased previously seen right C6-C7 disc extrusion. 3. Neuroforaminal narrowing most prominent right C3-C4 and C6-C7 on the right, unchanged. Electronically signed by: Tres Jenkins DO (04/26/2021 3:54 PM) [id number]
== END | disposition home or self-care (01) ==
LOC: KCIC MRI 12:18
PROVIDERS: ATTEND Anesthesiology
DX: M47.22 Other spondylosis with radiculopathy, cervical region (principal); M48.02 Spinal stenosis, cervical region; I10 Essential (primary) hypertension; E78.00 Pure hypercholesterolemia, unspecified; J44.9 Chronic obstructive pulmonary disease, unspecified; K21.9 Gastro-esophageal reflux disease without esophagitis; M19.90 Unspecified osteoarthritis, unspecified site; F41.9 Anxiety disorder, unspecified; F32.9 Major depressive disorder, single episode, unspecified; F17.210 Nicotine dependence, cigarettes, uncomplicated; Z98.51 Tubal ligation status; Z90.710 Acquired absence of both cervix and uterus; Z98.890 Other specified postprocedural states; Z79.899 Other long term (current) drug therapy; Z88.8 Allergy status to other drugs, medicaments and biological substances
CPT/HCPCS: 72141

== ENCOUNTER → 2021-05-22 | Outpatient (CLI) | payer OTHER ==
[~2021-05-22] MED LIST changes: +TIZA-75 PO; -TIZA4TAB2 PO
--- NOTE | 2021-05-22 12:08 | PDOC ---
Progress Note - Pain Clinic Date of Service: DOS: DATE: 05/22/21 TIME: 11:52 Diagnosis: Dx: Cervical radiculopathy with cervical degenerative disc disease Lumbar radiculopathy with lumbar degenerative disc disease History or Present Illness: HPI: 51-year-old female returns for follow-up after MRI scan cervical spine patient has significant pain base the neck and shoulders right upper extremity greater than left radiate into the forearm biceps into the hand and finger especially the thumb and first and second fingers patient MRI scan was discussed with her in detail today showing disc bulges throughout multilevel cervical spondylosis right C6-7 disc extrusion C5-6 central disc protrusion with slight cord flattening at C5-6 moderate left and mild right neuroforaminal narrowing C6-7 shows disc extrusion on the right extending superiorly persistent moderate to severe right neuroforaminal narrowing with mild left neuroforaminal narrowing compared to scan of February 09, 2018. Patient reports still significant pain base the neck and shoulder as well as the right upper extremity greater than left with radiating pain worse with repetitive motions weightlifting weightbearing repetitive lifting raising her hand over her head on the right side also disturbing sleep about every 4-5 hours away conservatively she can use repositioning it back to sleep patient reports no loss of motor function but significant fatigability with right upper extremity with repetitive motions and weightbearing lifting. Patient rates her pain is a 10 on scale 10 is worse over the past week 8 on average 7 its least is an 8 today. Patient cries aching sharp tight shooting tingling burning cramping stabbing radiating in the right arm can be severe with repetitive motions also pain radiating to the upper mid back between the shoulder blades as well which is hot and burning quality. Patient reports no loss of motor function but significant fatigability of the right upper extremity. Patient continues to do stretching strength exercises and physical therapy exercises she has learned from previous physical therapy instruction as well as taking ibuprofen 3 times daily 800 mg which decrease the pain but only by about 30%. Physical Exam: VS: Blood pressure is 100/72 pulse 85 respirations 18 temperature 90.9 F height is 5 foot 10 inches weight is 147 pounds PE: PHYSICAL EXAMINATION: GENERAL: The patient is awake, alert, oriented, appropriate, very pleasant in demeanor HEENT: Shows normocephalic, atraumatic. Extraocular movements are intact and symmetrical. Oral cavity: Mucous membranes moist and pink. Dentition is intact. NECK: Shows anterior throat supple without palpable lymphadenopathy noted. Swallow reflex symmetrical. CHEST: Shows normal on inspection. Breath sounds are clear bilaterally, distant but no rales or rhonchi. HEART: Shows S1, S2 clear. No murmurs auscultated. ABDOMEN: Soft, nontender, nondistended. No palpable organomegaly is noted. BACK: Shows spine grossly in the midline. Normal-appearing cervical lordotic curvature. Cervical paraspinous muscles show symmetrical inspection on palpation some moderate tenderness diffusely in the middle and inferior aspect the paraspinous muscles into the superior medial trapezius slightly worse on the right than the left without trigger points without radiation. Patient shows good rotation motion cervical spine with lateral full extension full forward flexion without significant limitation. There is slightly increased thoracic kyphosis, some minor flattening of the lumbar lordotic curvature. EXTREMITIES: Upper extremities show deep tendon reflexes 2+ in the biceps and triceps tendons. Motor exam is 4 on a scale of 5 with right actuarial analyst, biceps and triceps flexion and 5/5 on the left. Peripheral pulses are 2+ radial. No peripheral edema is noted bilaterally. Shoulder shrug is strong intact without loss of strength on resistance bilaterally. Upper extremities are warm and dry to touch, equal in color and appearance. SKIN: Shows warm and dry, good turgor. No edema. No sores, rashes or bruising throughout. Procedure: Procedure: Options discussed with patient. Patient chart was reviewed as her current medication regimen updated current review of systems updated today as well. We will preauthorize patient for cervical epidural steroid injection as she has significant radiculopathy in C6-7 dermatomal distribution on the right. MRI scans discussed once again with the patient as noted, patient will continue with stretching strength exercise as well as oral analgesics. Once approved we will plan on C6-7 level translaminar approach cervical epidural steroid injection with fluoroscopic guidance. Medication Injected: Med Injected: None Condition at Discharge: Condition at Discharge: Condition at discharge is stable. AB KARIMI MD May 22, 2021 12:08
== END | disposition home or self-care (01) ==
LOC: PNCL 10:46
PROVIDERS: ATTEND Anesthesiology
DX: M50.10 Cervical disc disorder with radiculopathy, unspecified cervical region (principal); M51.16 Intervertebral disc disorders with radiculopathy, lumbar region; I10 Essential (primary) hypertension; E78.00 Pure hypercholesterolemia, unspecified; J44.9 Chronic obstructive pulmonary disease, unspecified; K21.9 Gastro-esophageal reflux disease without esophagitis; M19.90 Unspecified osteoarthritis, unspecified site; F41.9 Anxiety disorder, unspecified; F32.9 Major depressive disorder, single episode, unspecified; F17.210 Nicotine dependence, cigarettes, uncomplicated; Z79.899 Other long term (current) drug therapy; Z98.890 Other specified postprocedural states; Z88.8 Allergy status to other drugs, medicaments and biological substances
CPT/HCPCS: 99212; G0463

== ENCOUNTER → 2021-08-21 | Outpatient (CLI) | payer OTHER ==
[~2021-08-21] MED LIST changes: +DIAZ5TAB PO; +IBUP-1060 PO
--- NOTE | 2021-08-21 09:40 | PDOC ---
Progress Note - Pain Clinic Date of Service: DOS: DATE: 08/21/21 TIME: 09:35 Diagnosis: Dx: Cervical radiculopathy with cervical degenerative disc disease Lumbar radiculopathy with lumbar degenerative disc disease History or Present Illness: HPI: 51-year-old female returns for follow-up after MRI scan cervical spine patient has significant pain base the neck and shoulders right upper extremity greater than left radiate into the forearm biceps into the hand and finger especially the thumb and first and second fingers patient MRI scan was discussed with her again today showing disc bulges throughout multilevel cervical spondylosis right C6-7 disc extrusion C5-6 central disc protrusion with slight cord flattening at C5-6 moderate left and mild right neuroforaminal narrowing C6-7 shows disc extrusion on the right extending superiorly persistent moderate to severe right neuroforaminal narrowing with mild left neuroforaminal narrowing compared to scan of February 09, 2018. Patient reports still significant pain base the neck and shoulder as well as the right upper extremity greater than left with radiating pain worse with repetitive motions weightlifting weightbearing repetitive lifting, and raising her hand over her head on the right side also disturbing sleep about every 4-5 hours away conservatively she can use repositioning it back to sleep patient reports no loss of motor function but significant fatigability with right upper extremity with repetitive motions and weightbearing lifting. Patient rates her pain is a 10 on scale 10 is worse over the past week 8 on average 7 its least is a 6 today. Patient describes and aching sharp tight shooting tingling burning cramping stabbing radiating in the right arm can be severe with repetitive motions also pain radiating to the upper mid back between the shoulder blades as well which is hot and burning quality. Patient reports no loss of motor function but significant fatigability of the right upper extremity. Patient continues to do stretching strength exercises and physical therapy exercises she has learned from previous physical therapy instruction as well as taking ibuprofen up to 3 times daily 800 mg which de crease the pain but only by about 2530%. Physical Exam: VS: Blood pressure is 110/77 pulse 70 respirations 16 temperature 98.3 F height is 5 feet 10 inches weight 142 pounds. PE: PHYSICAL EXAMINATION: GENERAL: The patient is awake, alert, oriented, appropriate, very pleasant in demeanor HEENT: Shows normocephalic, atraumatic. Extraocular movements are intact and symmetrical. Oral cavity: Mucous membranes moist and pink. Dentition is intact. NECK: Shows anterior throat supple without palpable lymphadenopathy noted. Swallow reflex symmetrical. CHEST: Shows normal on inspection. Breath sounds are clear bilaterally, distant and coarse but no rales or rhonchi auscultated. HEART: Shows S1, S2 clear. No murmurs auscultated. ABDOMEN: Soft, nontender, nondistended. No palpable organomegaly is noted. No rebound or guarding demonstrated. BACK: Shows spine grossly in the midline. Normal-appearing cervical lordotic curvature. Cervical spine shows paraspinous muscular symmetrical on inspection with palpation some moderate tenderness diffusely in the inferior aspect of the cervical paraspinous musculature more on the right than the left into the superior medial trapezius as well without specific trigger points without radiation. Patient does show good rotation of motion cervical spine with moderate tenderness with extension but not with forward flexion right and left lateral Tatian is performed past 45 degrees slightly guarding but without limitation of rotation. There is mildly increased thoracic kyphosis, some flattening of the lumbar lordotic curvature. Lumbar paraspinous muscles show symmetrical on inspection, on palpation shows some moderate tenderness diffusely throughout the upper, middle and lower distribution of the paraspinous muscles, but without specific trigger points, without radiation of pain. The patient has good rotational motion of the lumbar spine, both laterally as well as extension and flexion without significant difficulty. No tenderness over the spinous processes, sacrum or sacroiliac regions. EXTREMITIES: Lower extremities show deep tendon reflexes 2+ in the patellar and tendo calcaneus tendons. Motor exam is 4 on a scale of 5 with right dorsiflexion, extension, quadriceps and hamstring flexion and 4/5 on the left. Peripheral pulses are 1+ posterior tibial. No peripheral edema is noted bilaterally. Lower extremities are warm and dry to touch, equal in color and appearance. 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 Shoulder shrug strong and intact without significant loss of strength on resistance bilaterally. SKIN: Shows warm and dry, good turgor. No edema. No sores, rashes or bruising throughout. Procedure: Procedure: Options were discussed with the patient. Patient's chart was viewed as her current medication regimen updated current review of systems updated today as well. We will preauthorize patient for a cervical epidural steroid injection as she has still clinical C6-7 dermatomal distribution radiculopathy in the right upper extremity. Once approved we will have patient return for translaminar approach C6-7 level cervical epidural steroid injection with fluoroscopic guidance at that time. In meantime, patient continue with stretching strength exercises as well as oral analgesics as currently. Medication Injected: Med Injected: None Condition at Discharge: Condition at Discharge: Condition at discharge is stable. AB KARIMI MD Aug 21, 2021 09:40
== END | disposition home or self-care (01) ==
LOC: PNCL 08:53
PROVIDERS: ATTEND Anesthesiology
DX: M50.10 Cervical disc disorder with radiculopathy, unspecified cervical region (principal); M51.16 Intervertebral disc disorders with radiculopathy, lumbar region; I10 Essential (primary) hypertension; E78.00 Pure hypercholesterolemia, unspecified; J44.9 Chronic obstructive pulmonary disease, unspecified; K21.9 Gastro-esophageal reflux disease without esophagitis; M19.90 Unspecified osteoarthritis, unspecified site; F41.9 Anxiety disorder, unspecified; F32.9 Major depressive disorder, single episode, unspecified; F17.210 Nicotine dependence, cigarettes, uncomplicated; Z98.51 Tubal ligation status; Z90.49 Acquired absence of other specified parts of digestive tract; Z98.890 Other specified postprocedural states; Z79.899 Other long term (current) drug therapy; Z88.8 Allergy status to other drugs, medicaments and biological substances
CPT/HCPCS: 99212; G0463

== ENCOUNTER → 2021-09-12 | Outpatient (CLI) | payer OTHER ==
[~2021-09-12] MED LIST changes: +DEXAMETHASONE PRES.FREE 10 MG/ML VIAL. ONE; +IOHEXOL 180 MG/ML 10 ML VIAL. ONE
--- NOTE | 2021-09-12 11:35 | PDOC ---
Progress Note - Pain Clinic Date of Service: DOS: DATE: 09/12/21 TIME: 11:29 Diagnosis: Dx: Cervical radiculopathy with cervical degenerative disc disease Lumbar radiculopathy with lumbar degenerative disc disease Right shoulder joint pain with osteoarthritis History or Present Illness: HPI: 51-year-old female returns with complaints of pain base the neck and upper extremities and now significant pain in the right shoulder which is new in the joint itself with increased pain with extension of the shoulder as well as reaching overhead great feels that it is locked in position about 90 degrees abduction patient reports is aching sharp tight shooting base the neck is also aching sharp tight and shooting burning tingling into the upper extremities pressure on the right side of the forearm biceps and into the hand with tingling in the fingers mostly the thumb and first and second fingers but also the third and fourth fingers at times patient reports radiating constant can be unbearable as well patient reports is 8-9 on scale 10 is worse over the past week 7 8 is average 6-7 at its least and is a 7 today patient reports that is unbearable at times radiating constant with some fatigability in the right upper extremity but no overt motor loss. Patient reports right shoulder is becoming more more noticeable especially awaken her from sleep at night. 3 to 4 hours. Patient reports no complete loss of motor function but significant fatigability of the right arm. Physical Exam: VS: Blood pressure is 190/90 pulse 87 respirations 18 temperature 97.9 F weight is 139 pounds. PE: PHYSICAL EXAMINATION: GENERAL: The patient is awake, alert, oriented, appropriate, very pleasant in demeanor HEENT: Shows normocephalic, atraumatic. Extraocular movements are intact and symmetrical. Oral cavity: Mucous membranes moist and pink. Dentition is intact. NECK: Shows anterior throat supple without palpable lymphadenopathy noted. Swallow reflex symmetrical. CHEST: Shows normal on inspection. Breath sounds are clear bilaterally, no rales rhonchi wheezes auscultated. HEART: Shows S1, S2 clear. No murmurs auscultated. ABDOMEN: Soft, nontender, nondistended. No palpable organomegaly is noted. BACK: Shows spine grossly in the midline. Normal-appearing cervical lordotic curvature. Cervical paraspinous muscles show symmetrical with inspection, on palpation some moderate tenderness diffusely throughout the upper middle lower distribution paraspinous muscles but without significant radiation without asy mmetry no trigger points no radiation of pain with palpation. Patient shows good rotation motion cervical spine both laterally as well as full extension full forward flexion. There is slightly increased thoracic kyphosis, some mild flattening of the lumbar lordotic curvature. Lumbar paraspinous muscles show symmetrical on inspection, on palpation shows some moderate tenderness diffusely throughout the upper, middle and lower distribution of the paraspinous muscles without specific trigger points, without radiation of pain. The patient has good rotational motion of the lumbar spine, both laterally as well as extension and flexion without significant difficulty. No tenderness over the spinous processes, sacrum or sacroiliac regions. EXTREMITIES: Lower extremities show deep tendon reflexes 2+ in the patellar and tendo calcaneus tendons. Motor exam is 4 on a scale of 5 with right d orsiflexion, extension, quadriceps and hamstring flexion and 4/5 on the left. Peripheral pulses are 2+ posterior tibial. No peripheral edema is noted bilaterally. Lower extremities are warm and dry. Upper extremity showed deep tendon reflexes 2+ in the bicep and tricep tendons motor exam is 5 scale 5 with left speech language pathologist and 4 out of 5 with left speech language pathologist biceps and triceps flexion. Shoulder shrug strong intact without loss of strength on resistance. Patient's right shoulder shows significant tenderness with palpation over the anterior aspect of the bicipital groove as well as the acromioclavicular joint and posteriorly with difficulty extending past 90 degrees abduction with significant pain in the joint itself anteriorly and laterally. Left side shows full rotation of motion without difficulty or tenderness. SKIN: Shows warm and dry, good turgor. No edema. No sores, rashes or bruising throughout. Procedure: Procedure: Options were discussed with the patient. Patient chart reviews her current medication regimen updated current review of systems updated today as well. We will proceed with a cervical epidural steroid injection today with fluoroscopic guidance. Risks were discussed including but not limited to: Bleeding, infecti on, possibility of epidural hematoma and subsequent neurological compromise, dural puncture, headaches, spinal cord and/or nerve damage, side effects of steroid medication, and poor results regarding pain control. Patient understands and wished to proceed. Patient will return to the clinic in approximately 2 weeks for follow-up, was counseled as to return appointment, activity level, and side effect to be aware of. Regarding patient's right shoulder, will order x-rays of the shoulder today to better differentiate any change in osteoarthritic condition or new abnormalities which may explain her increased pain and limitation in mobility. Medication Injected: Med Injected: Procedure cervical epidural steroid injection at the C6-7 level, using local anesthetic under sterile prep and drape using C-arm fluoroscopic guidance under local anesthesia medications injected ; 20 mg dexamethasone +5 mL normal saline and 2 mL contrast; condition at discharge is stable patient tolerated p rocedure well. and had no complications Condition at Discharge: Condition at Discharge: Condition at discharge stable, paced tolerated the procedure well had no complications. AB KARIMI MD Sep 12, 2021 11:35
--- NOTE | 2021-09-12 11:35 | PDOC4 ---
Procedure Note: ICD 10 Code: ICD 10 Code: M54.12 M5 0.30 Procedure Note: Patient was consented for cervical epidural steroid injection with fluoroscopic guidance. Risks were discussed including but not limited to: Bleeding, infection, possibility of epidural hematoma and subsequent neurological compromise, dural puncture, headaches, spinal cord and/or nerve damage, side effects of steroid medication, and poor results regarding pain control. Patient understands and wished to proceed. Procedure cervical epidural steroid injection at the C6-7 level, using local anesthetic under sterile prep and drape using C-arm fluoroscopic guidance under local anesthesia medications injected ; 20 mg dexamethasone +5 mL normal saline and 2 mL contrast; condition at discharge is stable patient tolerated procedure well. and had no complications AB KARIMI MD Sep 12, 2021 11:35
--- NOTE | 2021-09-12 17:34 | RAD ---
Bilateral SHOULDER , 3 VIEWS Clinical Indication: Reason: BILATERAL SHOULDER JOINT PAIN. / Spl. Instructions: / History: Comparison: None. Findings: There is no acute fracture or dislocation. The acromioclavicular and glenohumeral joints are intact. The visualized lungs are clear. There is no evidence of a displaced rib fracture. There is no soft ti ssue abnormality. There are minimal degenerative changes. IMPRESSION: No acute fracture or dislocation. Electronically signed by: Cayetano Carreon MD (09/12/2021 5:31 PM) [id number]
== END | disposition home or self-care (01) ==
LOC: PNCL 10:02
PROVIDERS: ATTEND Anesthesiology
DX: M50.10 Cervical disc disorder with radiculopathy, unspecified cervical region (principal); M51.16 Intervertebral disc disorders with radiculopathy, lumbar region; M19.011 Primary osteoarthritis, right shoulder; M25.512 Pain in left shoulder; M25.511 Pain in right shoulder; I10 Essential (primary) hypertension; E78.00 Pure hypercholesterolemia, unspecified; J44.9 Chronic obstructive pulmonary disease, unspecified; K21.9 Gastro-esophageal reflux disease without esophagitis; F41.9 Anxiety disorder, unspecified; F32.9 Major depressive disorder, single episode, unspecified; F17.210 Nicotine dependence, cigarettes, uncomplicated; Z98.51 Tubal ligation status; Z98.890 Other specified postprocedural states; Z88.8 Allergy status to other drugs, medicaments and biological substances
CPT/HCPCS: 62321; 73030; J1100; Q9965

== ENCOUNTER → 2021-09-27 | Outpatient (CLI) | payer OTHER ==
[~2021-09-27] MED LIST changes: -DEXAMETHASONE PRES.FREE 10 MG/ML VIAL. ONE; -IOHEXOL 180 MG/ML 10 ML VIAL. ONE
--- NOTE | 2021-09-27 08:29 | PDOC ---
Progress Note - Pain Clinic Date of Service: DOS: DATE: 09/27/21 TIME: 08:24 Diagnosis: Dx: Lumbar radiculopathy with lumbar degenerative disease Cervical radiculopathy with cervical degenerative disc disease History or Present Illness: HPI: 51-year-old female returns for follow-up status post cervical epidural steroid injection x1. Patient reports about 90% improvement in pain in the base the ne ck and right upper extremity patient reports is increasing her activity with greater ease and comfort to work activities household activities travel with greater ease sleeping much better at night patient reports her chief complaint today however is low back and right lower extremity pain with pain rating the posterior gluteus on the right side radiating to lateral thigh anterior thigh medial thigh medial lower leg into the calf medially as well into the great toe on the right side patient reports is worse with walking standing changing positions also has a "clicking" sound in her right knee which is nonpainful patient reports the pain in the low back and the right leg and now her chief complaint rates it as a 5-6 on scale 10 is worst 3-4 on average 3 at its least and is a 4 today. Patient reports no bowel or bladder incontinence or loss of motor function but significant fatigability with walking standing change positions patient has been taking [id number] analgesics ibuprofen as well as Tylenol and stretching and strengthening as she has had physical therapy in the past is doing physical therapy exercises for the lower extremities and back which has not been helping significantly patient did have an MRI scan of the lumbar spine, which we reviewed with her today, showing L4-5 disc osteophyte complex greater on the right neuroforamen with very mild narrowing the right neural foramen L5-S1 shows mild facet degenerative change with spinal canal neuroforaminal being adequate. Patient reports pain is tingling and burning in the back radiating can be sharp and dull alternating in the back radiating stabbing and shooting in the right leg can be constant or severe with standing and walking. Patient reports no symptoms in the left lower extremity again no bowel or bladder incontinence. Physical Exam: VS: Blood pressure is 135/83 pulse 88 respirations 18 temperature 90.3 F height is 5 feet 10 inches weight 138 pounds. PE: PHYSICAL EXAMINATION: GENERAL: The patient is awake, alert, oriented, appropriate, very pleasant demeanor HEENT: Shows normocephalic, atraumatic. Extraocular movements are intact and symmetrical. Oral cavity: Mucous membranes moist and pink. Dentition is intact. NECK: Shows anterior throat supple without palpable lymphadenopathy noted. Swallow reflex symmetrical. CHEST: Shows normal on inspection. Breath sounds are clear bilaterally. HEART: Shows S1, S2 clear. No murmurs auscultated. ABDOMEN: Soft, nontender, nondistended. No palpable organomegaly is noted. BACK: Shows spine grossly in the midline. Normal-appearing cervical lordotic curvature. Cervical paraspinous muscles show symmetrical inspection on palpation some moderate tenderness diffusely bilaterally diffusely without signi ficant radiation. Patient shows full rotation of motion cervical spine both laterally as well as extension flexion without significant pain reported. There is slightly increased thoracic kyphosis, some minor flattening of the lumbar lordotic curvature. Lumbar paraspinous muscles show symmetrical on inspection, on palpation shows some moderate tenderness diffusely throughout the upper, middle and lower distribution of the paraspinous muscles without specific trigger points, without radiation of pain. The patient has good rotational motion of the lumbar spine, both laterally as well as extension and flexion without significant difficulty. No tenderness over the spinous processes, sacrum or sacroiliac regions. EXTREMITIES: Lower extremities show deep tendon reflexes 2+ in the patellar and tendo calcaneus tendons. Motor exam is 4 on a scale of 5 with right dorsiflexion, extension, quadriceps and hamstring flexion and 5/5 on the left. Peripheral pulses are 1+ posterior tibial. No peripheral edema is noted bilaterally. Lower extremities are warm and dry to touch, equal in color and appearance. Upper extremity show deep tendon reflexes 2+ in the bicep tricep tendons, motor exam strong with duplicator punch set up operator strength rated at 5 out of 5 and equal bilaterally. Peripheral pulses are 2+ radial and equal. SKIN: Shows warm and dry, good turgor. No edema. No sores, rashes or bruising throughout. Procedure: Procedure: Options were discussed with the patient. Patient chart was reviewed as her current medication regimen updated current review of systems updated today as well. We will preauthorize patient for a lumbar epidural steroid injection as patient has clinical L4-5 right-sided radiculopathy. Once approved, patient will return for translaminar approach L4-5 level lumbar epidural steroid injection with fluoroscopic guidance. In the meantime patient will continue with stretching strength exercises as well as oral analgesics as currently. Medication Injected: Med Injected: None Condition at Discharge: Condition at Discharge: Condition at discharge is stable. AB KARIMI MD Sep 27, 2021 08:29
== END | disposition home or self-care (01) ==
LOC: PNCL 08:02
PROVIDERS: ATTEND Anesthesiology
DX: M51.16 Intervertebral disc disorders with radiculopathy, lumbar region (principal); M50.10 Cervical disc disorder with radiculopathy, unspecified cervical region; I10 Essential (primary) hypertension; E78.00 Pure hypercholesterolemia, unspecified; J44.9 Chronic obstructive pulmonary disease, unspecified; K21.9 Gastro-esophageal reflux disease without esophagitis; M19.90 Unspecified osteoarthritis, unspecified site; F41.9 Anxiety disorder, unspecified; F32.9 Major depressive disorder, single episode, unspecified; F17.210 Nicotine dependence, cigarettes, uncomplicated; Z90.710 Acquired absence of both cervix and uterus; Z98.51 Tubal ligation status; Z98.890 Other specified postprocedural states; Z88.8 Allergy status to other drugs, medicaments and biological substances; Z79.899 Other long term (current) drug therapy
CPT/HCPCS: 99212; G0463

== ENCOUNTER → 2021-10-11 | Outpatient (CLI) | payer OTHER ==
[~2021-10-11] MED LIST changes: +CYAN25008 PO; +DEXAMETHASONE PRES.FREE 10 MG/ML VIAL. ONE; +ERGO2000 PO; +ESCITALOPRAM OXA5 M1 PO; +IOHEXOL 180 MG/ML 10 ML VIAL. ONE
--- NOTE | 2021-10-11 09:11 | PDOC ---
Progress Note - Pain Clinic Date of Service: DOS: DATE: 10/11/21 TIME: 09:09 Diagnosis: Dx: Lumbar radiculopathy with lumbar degenerative disease Cervical radiculopathy with cervical degenerative disc disease History or Present Illness: HPI: 51-year-old female returns for follow-up status post cervical epidural steroid injection x1 on September 22, 2021. Patient did very well with that 90% improvement patient reports her main complaint today is low back and right lower extremity pain patient reports an 8-9 on scale 10 is worse over the past week 5-6 on average 4-5 at its least and is a 5 today patient reports tingling burning aching dull in the back radiating the right lower extremity posterior gluteus posterior lateral thigh lateral anterior thigh anteromedial thigh lateral calf and anterior medial calf as well as the foot patient reports is tight and shooting radiating can be constant with weightbearing walking standing better with sitting or laying down but is waking her from sleep about once a night but not every night patient reports her neck is doing much better but still has some pain in the base the neck and the right shoulder on occasion patient reports no bowel or bladder incontinence. Physical Exam: VS: Blood pressure is 139/89 pulse 98 respirations 18 temperature 98.6 F height is 5 feet 10 inches weight is 139 pounds. PE: PHYSICAL EXAMINATION: GENERAL: The patient is awake, alert, oriented, appropriate, very pleasant in demeanor HEENT: Shows normocephalic, atraumatic. Extraocular movements are intact and symmetrical. Oral cavity: Mucous membranes moist and pink. Dentition is intact. NECK: Shows anterior throat supple without palpable lymphadenopathy noted. Swallow reflex symmetrical. CHEST: Shows normal on inspection. Breath sounds are clear bilaterally, no rales or rhonchi auscultated. HEART: Shows S1, S2 clear. No murmurs auscultated. ABDOMEN: Soft, nontender, nondistended. No palpable organomegaly is noted. BACK: Shows spine grossly in the midline. Normal-appearing cervical lordotic curvature. There is slightly increased thoracic kyphosis, some minor flattening of the lumbar lordotic curvature. Lumbar paraspinous muscles show symmetrical on inspection, on palpation shows some moderate tenderness diffusely throughout the upper, middle and lower distribution of the paraspinous muscles without specific trigger points, without radiation of pain. The patient has good rotational motion of the lumbar spine, both laterally as well as extension and flexion without significant difficulty. No tenderness over the spinous processes, sacrum or sacroiliac regions. EXTREMITIES: Lower extremities show deep tendon reflexes to in the patellar and tendo calcaneus tendons. Motor exam is 4 on a scale of 5 with right dorsi flexion, extension, quadriceps and hamstring flexion and 5/5 on the left. Peripheral pulses are 1+ posterior tibial. No peripheral edema is noted bilaterally. Lower extremities are warm and dry to touch, equal in color and appearance. SKIN: Shows warm and dry, good turgor. No edema. No sores, rashes or bruising throughout. Procedure: Procedure: Options discussed with patient. Patient's old chart was reviewed as her current medication regimen updated current review of systems updated today as well. We will proceed with a lumbar epidural steroid injection today with fluoroscopic guidance. Risks were discussed including but not limited to: Bleeding, infection, possibility of epidural hematoma and subsequent neurological compromise, dural puncture, headaches, spinal cord and/or nerve damage, side effects of steroid medication, and poor results regarding pain control. Patient understands and wished to proceed. Patient will return to the clinic in approximately 2 weeks for follow-up, was counseled as to return appointment, activity level, and side effect to be aware of. Medication Injected: Med Injected: Procedure is lumbar epidural steroid injection under local anesthetic using sterile prep and drape at the L4-5 level using C-arm fluoroscopic guidance in both AP and lateral views medications injected is 20 mg dexamethasone +10mL preservative-free normal saline and 2 mL contrast- condition at discharge is stable patient tolerated procedure well had no complications. Condition at Discharge: Condition at Discharge: Condition at discharge is stable, patient tolerated the procedure well and had no complications. AB KARIMI MD Oct 11, 2021 09:11
--- NOTE | 2021-10-11 09:12 | PDOC4 ---
Procedure Note: ICD 10 Code: ICD 10 Code: M54.16 M51.36 Procedure Note: Patient was consented for lumbar epidural steroid injection with fluoroscopic guidance. Risks were discussed including but not limited to: Bleeding, infection, possibility of epidural hematoma and subsequent neurological compromise, dural puncture, headaches, spinal cord and/or nerve damage, side effects of steroid medication, and poor results regarding pain control. Patient understands and wished to proceed. Procedure is lumbar epidural steroid injection under local anesthetic using sterile prep and drape at the L4-5 level using C-arm fluoroscopic guidance in both AP and lateral views medications injected is 20 mg dexamethasone +10mL preservative-free normal saline and 2 mL contrast- condition at discharge is stable patient tolerated procedure well had no complications. AB KARIMI MD Oct 11, 2021 09:12
== END | disposition home or self-care (01) ==
LOC: PNCL 08:00
PROVIDERS: ATTEND Anesthesiology
DX: M51.16 Intervertebral disc disorders with radiculopathy, lumbar region (principal); M50.10 Cervical disc disorder with radiculopathy, unspecified cervical region; I10 Essential (primary) hypertension; E78.00 Pure hypercholesterolemia, unspecified; J44.9 Chronic obstructive pulmonary disease, unspecified; K21.9 Gastro-esophageal reflux disease without esophagitis; M19.90 Unspecified osteoarthritis, unspecified site; F41.9 Anxiety disorder, unspecified; F32.9 Major depressive disorder, single episode, unspecified; F17.210 Nicotine dependence, cigarettes, uncomplicated; Z98.51 Tubal ligation status; Z90.710 Acquired absence of both cervix and uterus; Z79.899 Other long term (current) drug therapy; Z88.8 Allergy status to other drugs, medicaments and biological substances
CPT/HCPCS: 62323; J1100; Q9965

== ENCOUNTER 2021-11-12 12:25 | Emergency (ER) | payer OTHER ==
[~2021-11-12] VITALS: Ht 175.3 cm; Wt 61.0 kg
[~2021-11-12 12:25] MED LIST changes: -DEXAMETHASONE PRES.FREE 10 MG/ML VIAL. ONE; -IOHEXOL 180 MG/ML 10 ML VIAL. ONE
[2021-11-12 13:20] VITALS: BP 146/72
[2021-11-12] MEDS ORDERED: IV NORMAL SALINE 1000ML BAG 1,000 ML IV ONE (13:45)
[2021-11-12] MEDS ORDERED: MORPHINE SULFATE 4 MG/ML INJ. IVP ONE (13:45)
[2021-11-12] MEDS ORDERED: ONDANSETRON PF 4 MG/2 ML VIAL. IVP ONE (13:45)
[2021-11-12 14:04] LABS: BACTERIA,URINE FEW /HPF (0-FEW); RBC,URINE 0 /HPF (0-2)
--- NOTE | 2021-11-12 14:34 | RAD ---
EXAMINATION: CT ABDOMEN+PELVIS WO CLINICAL HISTORY: Left flank pain, hx of kidney stones. TECHNIQUE: Imaging of the abdomen and pelvis was performed without intravenous contrast using standar d technique, scanning from just above the dome of the diaphragm to the symphysis pubis. Unenhanced i maging is limited for the evaluation of some intra-abdominal and pelvic pathology. CT Dose Reduction Employed: One or more of the following individualized dose reduction techniques wer e utilized for this examination: 1. Automated exposure control 2. Adjustment of the mA and/or kV ac cording to patient size 3. Use of iterative reconstruction technique. COMPARISON: CT chest 11/29/2020 and 04/19/2020, CT abdomen/pelvis 04/02/2020 FINDINGS: Partially visualized somewhat nodular opacity measuring up to 7 mm in the anterior right middle lobe (series 2 image 1), similar to prior CT chest. Stable 6 mm subpleural nodule in the posterior left aruna ng base (series 2 image 16). Hepatomegaly with mild steatosis, similar to prior study. Cholecystectomy. Pancreas, spleen, and adre nal glands unremarkable. Kidneys unremarkable. No urolithiasis or evidence of obstructive uropathy. Mildly filled urinary bladder. No dilated bowel. Mild distal colonic diverticulosis. Appendix within normal limits. Mild to moderate arterial atherosclerotic calcification without aneurysm. No evidence of acute osseous abnormality. IMPRESSION: No evidence of acute abdominopelvic abnormality. No urolithiasis or evidence of obstructive uropathy. Stable pulmonary nodules in the partially visualized chest, recommend continued follow-up per Fleisch ner criteria as previously outlined. Electronically signed by: Richar Mackay DO (11/12/2021 2:31 PM) ANATOLIY
[2021-11-12] MEDS ORDERED: HYDR-2761 PO ×2 (14:56→14:57)
--- NOTE | 2021-11-12 15:01 | PHYS DOC ---
Past Medical History Past Medical History: Asthma, Depression, GERD, Schizophrenia Additional Past Medical Histor: chronic leg pain, gastroparesis, bulging discs Past Surgical History: , Hysterectomy Additional Past Surgical Histo: bladder botox Smoking Status: Current Every Day Smoker Alcohol Use: None Drug Use: None General Adult EDM: Chief Complaint: FLANK PAIN HPI: HPI: Patient is a 51 year old female with a history of depression, schizophrenia, asthma, acid reflux, presenting to the ED today complaining of 7 out of 10 left- sided flank pain, symptoms began on Friday last week. Patient denies anything specifically exacerbating or relieving the pain. Describes the pain as sharp. Denies any nausea, vomiting, urgency, frequency or dysuria. She states she follows up with a urologist for Botox injections in her bladder to reduce spasms. She states she is currently on nitrofurantoin in preparation for her next Botox injection. Review of Systems: Review of Systems: Constitutional: Denies fever or chills. [] Eyes: Denies change in visual acuity. [] HENT: Denies nasal congestion or sore throat. [] Respiratory: Denies cough or shortness of breath. [] Cardiovascular: Denies chest pain or edema. [] GI: Denies abdominal pain, nausea, vomiting, bloody stools or diarrhea. [] : Reports left flank pain denies dysuria. [] Musculoskeletal: Denies back pain or joint pain. [] Integument: Denies rash. [] Neurologic: Denies headache, focal weakness or sensory changes. [] Psychiatric: Denies depression or anxiety. [] Heart Score: C/O Chest Pain: N/A Risk Factors: Risk Factors: DM, Current or recent (<one month) smoker, HTN, HLP, family history of CAD, obesity. Risk Scores: Score 0 - 3: 2.5% MACE over next 6 weeks - Discharge Home Score 4 - 6: 20.3% MACE over next 6 weeks - Admit for Clinical Observation Score 7 - 10: 72.7% MACE over next 6 weeks - Early Invasive Strategies Current Medications: Current Medications Medications (Trade) Dose Ordered Sig/Corin Start Time Stop Time Status Last Admin Dose Admin Morphine Sulfate (Morphine Sulfate) 4 mg 1X ONCE 11/12/21 13:45 11/12/21 13:47 DC Ondansetron HCl (Zofran) 4 mg 1X ONCE 5/9/22 13:45 11/12/21 13:47 DC Sodium Chloride 1,000 ml @ 1,000 mls/hr 1X ONCE 11/12/21 13:45 11/12/21 14:44 DC Allergies: Allergies: Allergies Coded Allergies Type Severity Reaction Last Updated Verified varenicline Allergy Intermediate 05/18/20 Yes Physical Exam: PE: Constitutional: Well developed, well nourished, no acute distress, non-toxic appearance. [] HENT: Normocephalic, atraumatic, bilateral external ears normal, oropharynx moist, no oral exudates, nose normal. [] Eyes: PERRLA, EOMI, conjunctiva normal, no discharge. [] Neck: Normal range of motion, no tenderness, supple, no stridor. [] Cardiovascular:Heart rate regular rhythm, no murmur [] Lungs & Thorax: Bilateral breath sounds clear to auscultation [] Abdomen: Bowel sounds normal, soft, no tenderness, no masses, no pulsatile masses. [] Skin: Warm, dry, no erythema, no rash. [] Back: No tenderness, no CVA tenderness. [] Extremities: No tenderness, no cyanosis, no clubbing, ROM intact, no edema. [] Neurologic: Alert and oriented X 3, normal motor function, normal sensory function, no focal deficits noted. [] Psychologic: Affect normal, judgement normal, mood normal. [] Current Patient Data: Labs: Laboratory Tests Test 11/12/21 13:39 Urine Collection Type Unknown Urine Color (Auto) Light yellow Urine Turbidity Clear Urine pH (Auto) 7.0 (<5.0-8.0) Urine Specific [place] 1.007 (1.000-1.030) Urine Protein (Auto) Negative mg/dL (Negative) Urine Glucose (Auto)(UA) Negative mg/dL (Negative) Urine Ketones (Auto) Negative mg/dL (Negative) Urine Blood (Auto) Negative (Negative) Urine Nitrite Negative (Negative) Urine Bilirubin (Auto) Negative (Negative) Urine Urobilinogen (Auto) Normal mg/dL (Normal) Urine Leukocyte Esterase (Auto) Negative (Negative) Urine RBC 0 /HPF (0-2) Urine WBC 1-4 /HPF (0-4) Urine Squamous Epithelial Cells Few /LPF Urine Bacteria Few /HPF (0-FEW) Urine Mucus Slight /LPF Vital Signs: Vital Signs Date Time Temp Pulse Resp B/P (MAP) Pulse Ox O2 Delivery O2 Flow Rate FiO2 11/12/21 13:20 98.5 98 18 146/72 (96) 98 Room Air 98.5 EKG: EKG: [] Radiology/Procedures: Radiology/Procedures: []PROCEDURE: CT ABDOMEN PELVIS WO CONTRAST EXAMINATION: CT ABDOMEN+PELVIS WO CLINICAL HISTORY: Left flank pain, hx of kidney stones. TECHNIQUE: Imaging of the abdomen and pelvis was performed without intravenous contrast using standard technique, scanning from just above the dome of the diaphragm to the symphysis pubis. Unenhanced imaging is limited for the evaluation of some intra-abdominal and pelvic pathology. CT Dose Reduction Employed: One or more of the following individualized dose reduction techniques were utilized for this examination: 1. Automated exposure control 2. Adjustment of the mA and/or kV according to patient size 3. Use of iterative reconstruction technique. COMPARISON: CT chest 11/29/2020 and 04/19/2020, CT abdomen/pelvis 04/02/2020 FINDINGS: Partially visualized somewhat nodular opacity measuring up to 7 mm in the anterior right middle lobe (series 2 image 1), similar to prior CT chest. Stable 6 mm subpleural nodule in the posterior left lung base (series 2 image 16). Hepatomegaly with mild steatosis, similar to prior study. Cholecystectomy. Pancreas, spleen, and adrenal glands unremarkable. Kidneys unremarkable. No urolithiasis or evidence of obstructive uropathy. Mildly filled urinary bladder. No dilated bowel. Mild distal colonic diverticulosis. Appendix within normal limits. Mild to moderate arterial atherosclerotic calcification without aneurysm. No evidence of acute osseous abnormality. IMPRESSION: No evidence of acute abdominopelvic abnormality. No urolithiasis or evidence of obstructive uropathy. Stable pulmonary nodules in the partially visualized chest, recommend continued follow-up per Fleischner criteria as previously outlined. Electronically signed by: Richar Osborn DO (11/12/2021 2:31 PM) [facility] DICTATED and SIGNED BY: RICHAR OSBORN DO DATE: 11/12/21 1418 Course & Med Decision Making: Course & Med Decision Making Pertinent Labs and Imaging studies reviewed. (See chart for details) This is a 51-year-old female patient presented to the ED today with left flank pain that began Friday last week. UA negative for infection, CT of the abdomen and pelvis is negative for any acute findings, noted for stable right pulmonary nodule, patient is aware of it, she follows up with her PCP for this. She was discharged home. She has an appointment with her urologist in a couple days. Provided return precautions. Jacobo Disclaimer: Jacobo Disclaimer: This electronic medical record was generated, in whole or in part, using a voice recognition dictation system. Departure Departure Impression: Primary Impression: Left flank pain Disposition: HOME / SELF CARE / HOMELESS Condition: STABLE Referrals: TREVOR LANDIN MD (PCP) Follow-up with your primary care doctor and urologist in the next 1 to 2 weeks Patient Instructions: Flank Pain, [id number] Additional Instructions: Your CT of the abdomen and pelvis is negative for any acute findings, continue following up with your primary care doctor for the lung nodule, follow-up with the urologist as scheduled. Come back to the ED at any point symptoms worsen Scripts Hydrocodone Bit/Acetaminophen (HYDROCODONE-APAP 5-325 ) 1 Tab Tablet 1 TAB PO PRN Q6HRS PRN for PAIN, #14 TAB 0 Refills Prov: BENJI GONZALES APRN 11/12/21 BENJI GONZALES [employer] November 12, 2021 15:01
== END 2021-11-12 15:26 | disposition home or self-care (01) ==
LOC: ER 12:25
DX: R10.9 Unspecified abdominal pain (principal); J45.909 Unspecified asthma, uncomplicated; K21.9 Gastro-esophageal reflux disease without esophagitis; F20.9 Schizophrenia, unspecified; F17.200 Nicotine dependence, unspecified, uncomplicated; Z98.890 Other specified postprocedural states; Z90.710 Acquired absence of both cervix and uterus; Z88.1 Allergy status to other antibiotic agents
CPT/HCPCS: 74176; 81001; 99284